=== PATIENT | male | born 1950 | race Caucasian/White ===

== ENCOUNTER 2016-04-10 14:06 | Inpatient (IN) | payer MEDICARE ==
[2016-04-10 14:46] LABS: ABSOLUTE EOSINOPHILS # (AUTO) 0.1 10^3/uL (0.0-0.6); ABSOLUTE LYMPHOCYTES (AUTO) 1.1 10^3/uL (0.5-4.7); ABSOLUTE MONOCYTES (AUTO) 1.1 10^3/uL (0.1-1.4); ABSOLUTE NEUT (AUTO) 7.2 10^3/uL (1.7-8.2); BASOPHILS % (AUTO) 0.4 % (0-2); EOSINOPHILS % (AUTO) 0.7 % (0-6); HEMATOCRIT 46.3 % (37.9-51.0); HEMOGLOBIN 15.3 g/dL (13.5-17.0); HGB HCT DIFFERENCE -0.4; MEAN CORPUSCULAR HEMOGLOBIN 30.8 pg (27.0-33.4); MEAN CORPUSCULAR HGB CONC 33.1 g/dL (32.0-36.0); MEAN CORPUSCULAR VOLUME 93 fl (80-97); MONOCYTES % (AUTO) 11.4 % (3-13); RED BLOOD COUNT 4.99 10^6/uL (4.35-5.55); RED CELL DISTRIBUTION WIDTH 16.5 % (11.5-14.0); SEGMENTED NEUTROPHILS % (AUTO) 75.5 % (42-78); WHITE BLOOD COUNT 9.5 10^3/uL (4.0-10.5)
[2016-04-10 14:47] LABS: VENOUS BLOOD BASE EXCESS 3.4 mmol/L; VENOUS BLOOD HCO3 33.2 mmol/L (20-32); VENOUS BLOOD PH 7.27 (7.30-7.42)
--- NOTE | 2016-04-10 14:53 | EKG REPORT ---
SEVERITY:- ABNORMAL ECG - SINUS RHYTHM RIGHT BUNDLE BRANCH BLOCK : Confirmed by: Stacie Garrett 11-Apr-2016 01:22:35
[2016-04-10 14:57] LABS: ALANINE AMINOTRANSFERASE 38 U/L (21-72); ALBUMIN 3.5 g/dL (3.5-5.0); ALKALINE PHOSPHATASE 49 U/L (38-126); ANION GAP 11 (5-19); ASPARTATE AMINO TRANSFERASE 16 U/L (17-59); BILIRUBIN,TOTAL 0.3 mg/dL (0.2-1.3); BLOOD UREA NITROGEN 43 mg/dL (7-20); CARBON DIOXIDE 35 mmol/L (22-30); CHLORIDE 98 mmol/L (98-107); CREATINE KINASE 45 U/L (55-170); CREATININE RESULT 2.05 mg/dL (0.52-1.25); GLUCOSE 107 mg/dL (75-110); SODIUM 144.3 mmol/L (137-145); TOTAL PROTEIN 6.1 g/dL (6.3-8.2)
[2016-04-10 15:10] LABS: CREATINE KINASE MB 1.28 ng/mL (<4.55)
[2016-04-10 15:12] LABS: TROPONIN I 0.059 ng/mL
--- NOTE | 2016-04-10 16:12 | ER Document Report ---
ED General - General Chief Complaint: Breathing Difficulty Stated Complaint: DIFFICULTY BREATHING Information source: Patient, Emergency Med Personnel TRAVEL OUTSIDE OF THE [place] IN LAST 30 DAYS: No - HPI Patient complains to provider of: shortness of breath, similar to prior COPD and CHF Onset: Other - several days Onset/Duration: Gradual, Waxing and waning Associated symptoms: denies: Fever Exacerbated by: Walking Relieved by: Other - no relief with home nebs - Related Data Allergies/Adverse Reactions: No Known Allergies Allergy (Verified 03/03/16 23:43) Home Medications: Current Home Medications Albuterol Sulfate [Proair HFA] 1 puff IH Q4HP PRN 04/10/16 [History] Fluticasone Propionate [Flonase Nasal [place] 50 Mcg/[place] 16 gm] 1 spray NASL DAILY 04/10/16 [History] Fluticasone/Salmeterol [Advair 500-50 Diskus 14 Dose/Diskus] 1 puff IH Q12 04/10 [History] Furosemide [Lasix 40 mg Tablet] 40 mg PO BID 04/10/16 [History] Losartan Potassium [Cozaar 100 mg Tablet] 100 mg PO DAILY 04/10/16 [History] Past Medical History - General Information source: Patient - Social History Smoking Status: Unknown if Ever Smoked Frequency of alcohol use: None Drug Abuse: None Family History: Reviewed & Not Pertinent - Past Medical History Cardiac Medical History: Reports: Hx Congestive Heart Failure, Hx Hypertension Pulmonary Medical History: Reports: Hx COPD Endocrine Medical History: Reports: Hx Diabetes Mellitus Type 2 Psychiatric Medical History: Reports: Hx Depression - Immunizations Immunizations up to date: Yes Hx Diphtheria, Pertussis, Tetanus Vaccination: Yes Hx Pneumococcal Vaccination: 04/08/14 Review of Systems - Review of Systems Constitutional: denies: Fever Cardiovascular: denies: Syncope Respiratory: Cough, Short of breath, Wheezing Gastrointestinal: denies: Vomiting Genitourinary: denies: Burning Musculoskeletal: Leg swelling Skin: denies: Rash Hematologic/Lymphatic: denies: Swollen glands Neurological/Psychological: denies: Numbness, Tingling Physical Exam - Vital signs Vitals: Pulse Ox 92 04/10/16 14:10 - General General appearance: Alert In distress: Mild - HEENT Head: Normocephalic, Atraumatic Nasal: Normal Mouth/Lips: Normal Mucous membranes: Normal Pharynx: Normal Neck: Normal - Respiratory Respiratory status: Labored Chest status: Nontender Breath sounds: Rales, Wheezing Chest palpation: Normal - Cardiovascular Rhythm: Regular - Abdominal Inspection: Obese Tenderness: Nontender - Back Back: Nontender - Extremities General lower extremity: Edema - Neurological Orientation: AAOx4 - Psychological Associated symptoms: Normal affect - Skin Skin Temperature: Warm Skin Moisture: Dry - chronic dermatitis bilateral lower extremities, onchymycosis Course - Re-evaluation Re-evalutation: 04/10/16 16:[address] Paulson who will admit to [facility] - Vital Signs Vital signs: Temp Pulse Resp BP Pulse Ox 98.6 F 18 113/55 L 96 04/10/16 15:01 04/10/16 19:00 04/10/16 17:01 04/10/16 19:00 - Laboratory Result Diagrams: 04/10/16 14:22 04/10/16 14:22 Laboratory results interpreted by me: 04/10/16 04/10/16 04/10/16 14:22 14:22 14:22 RDW 16.5 H Lymphocytes % 12.0 L VBG pH VBG pCO2 VBG HCO3 Carbon Dioxide 35 H BUN 43 H Creatinine 2.05 H Est GFR ( Amer) 40 L Est GFR (Non-Af Amer) 33 L AST 16 L Creatine Kinase 45 L NT-Pro-B Natriuret Pep 2700 H Total Protein 6.1 L 04/10/16 14:22 RDW Lymphocytes % VBG pH 7.27 L VBG pCO2 74.0 H* VBG HCO3 33.2 H Carbon Dioxide BUN Creatinine Est GFR ( Amer) Est GFR (Non-Af Amer) AST Creatine Kinase NT-Pro-B Natriuret Pep Total Protein - Diagnostic Test Radiology reviewed: Image reviewed, Reports reviewed - EKG Interpretation by Me EKG shows normal: Sinus rhythm Rate: Normal [place]/QRS: RBBB Discharge - Discharge Clinical Impression: Acute respiratory failure with hypoxia and hypercarbia, Acute kidney injury Systolic congestive heart failure Qualifiers: Congestive heart failure chronicity: acute on chronic Qualified Code(s): I50.23 - Acute on chronic systolic (congestive) heart failure COPD (chronic obstructive pulmonary disease) Qualifiers: COPD type: COPD with acute exacerbation Qualified Code(s): J44.1 - Chronic obstructive pulmonary disease with (acute) exacerbation Condition: Fair Disposition: ADMITTED INPATIENT Admitting Provider: Khurram Unit Admitted: [facility]
[2016-04-10] MEDS ORDERED: FUROSEMIDE INJ/PF 40 MG/4 ML SDV IV ONE (16:13)
[2016-04-10 17:05] LABS: APPEARANCE,URINE CLEAR; BILIRUBIN,URINE NEGATIVE (NEGATIVE); GLUCOSE, URINE NEGATIVE (NEGATIVE); KETONES,URINE NEGATIVE (NEGATIVE); LEUKOCYTE ESTERASE,URINE NEGATIVE (NEGATIVE); NITRITE,URINE NEGATIVE (NEGATIVE); PROTEIN,URINE NEGATIVE (NEGATIVE); URINE SPECIFIC GRAVITY 1.011; UROBILINOGEN,URINE NEGATIVE mg/dL (<2.0)
[2016-04-10] MEDS ORDERED: DEXTROSE 40% GEL 15 GM TUBE PO PRN ×2 (20:14)
[2016-04-10] MEDS ORDERED: GLUCAGON,HUMAN RECOMB 1 MG INJ IM PRN (20:14)
[2016-04-10] MEDS ORDERED: INSULIN LISPRO 100 UNIT/ML 3 ML VIAL SUBCUT PRN (20:14)
[2016-04-10] MEDS ORDERED: DEXTROSE 50%-WATER 25 GM/50 ML DISP.SYRIN IV PRN ×2 (20:14)
[2016-04-10 21:20] LABS: PROTHROMBIN TIME 13.1 SEC (11.4-15.4)
[2016-04-10 21:21] LABS: PARTIAL THROMBOPLASTIN TIME 31.7 SEC (23.5-35.8)
[2016-04-10 21:42] LABS: MAGNESIUM 2.1 mg/dL (1.6-2.3); PHOSPHORUS 5.6 mg/dL (2.5-4.5)
[2016-04-10] MEDS: IPRATROPIUM/ALBUTEROL 0.5-2.5 MG/3 ML AMPUL NEB SCH (21:49)
[2016-04-10 21:57] LABS: AMYLASE < 30 U/L (30-110)
[2016-04-10] MEDS ORDERED: LEVOFLOXACIN 750 MG/D5W RTU 750 MG/150 ML RTUPB IV ONE (22:00)
[2016-04-10 22:12] LABS: APPEARANCE,URINE CLEAR; BILIRUBIN,URINE NEGATIVE (NEGATIVE); GLUCOSE, URINE NEGATIVE (NEGATIVE); KETONES,URINE NEGATIVE (NEGATIVE); LEUKOCYTE ESTERASE,URINE NEGATIVE (NEGATIVE); NITRITE,URINE NEGATIVE (NEGATIVE); PROTEIN,URINE NEGATIVE (NEGATIVE); UROBILINOGEN,URINE NEGATIVE mg/dL (<2.0)
[2016-04-10 22:16] LABS: THYROID STIMULATING HORMONE 1.07 uIU/mL (0.47-4.68)
[2016-04-10 22:17] LABS: URINE BARBITURATES SCREEN NEGATIVE; URINE METHADONE SCREEN NEGATIVE; URINE PHENCYCLIDINE SCREEN NEGATIVE
[2016-04-10] MEDS: METHYLPREDNISOLONE INJ 125 MG/2 ML SDV IV SCH (23:16)
[2016-04-10] MEDS: HEPARIN SOD (PORCINE) 5,000 UNIT/ML 1 ML SYRINGE SUBCUT SCH (23:17)
[2016-04-11] MEDS: FLUTICASONE/SALMETEROL DISKUS 500-50 MCG/DOSE IH SCH ×3 (00:03→22:38)
[2016-04-11] MEDS: IPRATROPIUM/ALBUTEROL 0.5-2.5 MG/3 ML AMPUL NEB SCH ×10 (00:11→19:55)
[2016-04-11] MEDS: NORMAL SALINE 1000 ML 1,000 ML IV PRN ×2 (00:54→15:47)
[2016-04-11 00:56] LABS: ARTERIAL BLOOD BASE EXCESS 6.7 mmol/L; ARTERIAL BLOOD O2 SATURATION 86.3 % (94-98)
[2016-04-11 04:26] LABS: ALANINE AMINOTRANSFERASE 35 U/L (21-72); ALBUMIN 3.4 g/dL (3.5-5.0); ALKALINE PHOSPHATASE 48 U/L (38-126); ANION GAP 12 (5-19); ASPARTATE AMINO TRANSFERASE 18 U/L (17-59); BILIRUBIN,TOTAL 0.4 mg/dL (0.2-1.3); BLOOD UREA NITROGEN 46 mg/dL (7-20); CALCIUM 8.8 mg/dL (8.4-10.2); CARBON DIOXIDE 34 mmol/L (22-30); CHLORIDE 99 mmol/L (98-107); CHOLESTEROL 160.33 mg/dL (0-200); Direct HDL 34 mg/dL (>40); GLUCOSE 132 mg/dL (75-110); POTASSIUM 4.7 mmol/L (3.6-5.0); SODIUM 144.8 mmol/L (137-145); TOTAL PROTEIN 5.9 g/dL (6.3-8.2); TRIGLYCERIDES 48 mg/dL (<150)
[2016-04-11 04:37] LABS: DIRECT LDL 131 mg/dL (<100)
[2016-04-11 04:47] LABS: HEMATOCRIT 44.3 % (37.9-51.0); HEMOGLOBIN 14.5 g/dL (13.5-17.0); HGB HCT DIFFERENCE -0.8; MEAN CORPUSCULAR HEMOGLOBIN 30.3 pg (27.0-33.4); MEAN CORPUSCULAR HGB CONC 32.9 g/dL (32.0-36.0); MEAN CORPUSCULAR VOLUME 92 fl (80-97); RED BLOOD COUNT 4.79 10^6/uL (4.35-5.55); RED CELL DISTRIBUTION WIDTH 16.2 % (11.5-14.0); WHITE BLOOD COUNT 12.8 10^3/uL (4.0-10.5)
[2016-04-11 04:50] LABS: BAND NEUTROPHILS % (MANUAL) 1 % (3-5); BASOPHILS % (MANUAL) 0 % (0-2); EOSINOPHILS % (MANUAL) 0 % (0-6); LYMPHOCYTES % (MANUAL) 4 % (13-45); TOTAL CELLS COUNTED 100
[2016-04-11 04:51] LABS: ANISOCYTOSIS 1+; OVALOCYTES SLIGHT; POIKILOCYTOSIS SLIGHT; TOXIC GRANULATION SLIGHT
[2016-04-11] MEDS: HEPARIN SOD (PORCINE) 5,000 UNIT/ML 1 ML SYRINGE SUBCUT SCH ×3 (05:57→22:38)
[2016-04-11] MEDS: METHYLPREDNISOLONE INJ 125 MG/2 ML SDV IV SCH ×3 (05:58→22:37)
[2016-04-11] MEDS: LOSARTAN POTASSIUM 50 MG TABLET PO SCH (09:26)
--- NOTE | 2016-04-11 14:36 | PDOC H&P ---
History of Present Illness Admission Date/PCP: 04/10/16 20:06 PHI STONE, History of Present Illness: NEAL DOMINGO is a 65 year old male with history of chronic obstructive pulmonary disease, tobacco abuse, he came to the emergency room because of progressive shortness of breath and failure to achieve improved symptomatology despite adequate treatment with bronchodilators. In the emergency room he was evaluated, he was treated, a venous blood gas was done, pH was 7.27, PCO2 74, bicarbonate head 33.2. This blood gas suggest acute respiratory acidosis with metabolic alkalosis, the expected bicarbonate for the degree of PCO2 should be 27, but the measured bicarbonate was 33.2. He was also found to have acute kidney injury with serum creatinine of 2.05, he takes furosemide 40 MG 2 times a day, this suggest volume contraction and this would explained the metabolic alkalosis, so the acute kidney injury is most likely prerenal azotemia, he is most likely over diuresed with furosemide. He will be treated with IV infusion on we monitor the chemistries. CT chest was done without contrast and it showed patchy airspace consolidation in the lung bases, right more than left. This could represent atelectasis versus basilar infiltrate. He was recently admitted in this hospital on 03/04/2016 and he was discharged on 03/07/2016 Past Medical History Cardiac Medical History: Reports: Hypertension, Other - Chronic lymphedema of the lower extremities Pulmonary Medical History: Reports: Chronic Obstructive Pulmonary Disease (COPD) Endocrine Medical History: Reports: Diabetes Mellitus Type 2, Obesity Psychiatric Medical History: Reports: Depression Social History Smoking Status: Current Every Day Smoker Cigarettes Packs Per Day: 1 Number of Years Smokin Frequency of Alcohol Use: Occasional Hx Recreational Drug Use: No Drugs: None Hx Prescription Drug Abuse: No - Advance Directive Resuscitation Status: Full Code Family History Family History: Reviewed & Not Pertinent Parental Family History Reviewed: Yes Children Family History Reviewed: Yes Sibling(s) Family History Reviewed.: Yes Medication/Allergy Home Medications: Albuterol Sulfate [Proair HFA] 1 puff IH Q4HP PRN 04/10/16 Fluticasone Propionate [Flonase Nasal [place] 50 Mcg/[place] 16 gm] 1 spray NASL DAILY 04/10/16 Fluticasone/Salmeterol [Advair 500-50 Diskus 14 Dose/Diskus] 1 puff IH Q12 04/10 Furosemide [Lasix 40 mg Tablet] 40 mg PO BID 04/10/16 Losartan Potassium [Cozaar 100 mg Tablet] 100 mg PO DAILY 04/10/16 Metformin HCl [Glucophage] 1 tab PO DAILY 04/11/16 Allergies/Adverse Reactions: No Known Allergies Allergy (Verified 03/03/16 23:43) Review of Systems Constitutional: ABSENT: chills, fever(s), headache(s), weight gain, weight loss Eyes: ABSENT: visual disturbances Ears: ABSENT: hearing changes Cardiovascular: ABSENT: chest pain, dyspnea on exertion, edema, orthropnea, palpitations Respiratory: PRESENT: cough, dyspnea, sputum Gastrointestinal: ABSENT: abdominal pain, constipation, diarrhea, hematemesis, hematochezia, nausea, vomiting Genitourinary: ABSENT: dysuria, hematuria Musculoskeletal: ABSENT: joint swelling Integumentary: ABSENT: rash, wounds Neurological: ABSENT: abnormal gait, abnormal speech, confusion, dizziness, focal weakness, syncope Psychiatric: ABSENT: anxiety, depression, homidical ideation, suicidal ideation Endocrine: ABSENT: cold intolerance, heat intolerance, menstrual abnormalities, polydipsia, polyuria Hematologic/Lymphatic: ABSENT: easy bleeding, easy bruising, lymphadenopathy Physical Exam Vital Signs: Temp Pulse Resp BP Pulse Ox 98.5 F 99 19 85/73 L 91 L 04/11/16 12:10 04/11/16 13:56 04/11/16 12:15 04/11/16 12:10 04/11/16 12:10 Intake & Output 04/10/16 04/11/16 04/12/16 06:59 06:59 06:59 Intake Total 1343 600 Output Total 1000 450 Balance 343 150 Weight 146.9 kg General appearance: PRESENT: severe distress, well-developed, well-nourished Head exam: PRESENT: atraumatic, normocephalic Eye exam: PRESENT: EOMI, PERRLA Mouth exam: PRESENT: dry mucosa Neck exam: PRESENT: full ROM Respiratory exam: PRESENT: wheezes Cardiovascular exam: PRESENT: +S1, +S2 Vascular exam: PRESENT: normal capillary refill GI/Abdominal exam: PRESENT: soft, other - Obese abdomen Rectal exam: PRESENT: deferred Extremities exam: PRESENT: other Neurological exam: PRESENT: alert, awake, oriented to person, oriented to place , oriented to time, oriented to situation, CN II-XII grossly intact Psychiatric exam: PRESENT: appropriate affect, normal mood Skin exam: PRESENT: intact, warm Results Laboratory Results: 04/11/16 03:44 04/11/16 03:44 04/10/16 04/10/16 04/10/16 20:59 20:59 20:59 WBC RBC Hgb Hct MCV MCH MCHC RDW Plt Count Seg Neutrophils % Lymphocytes % Monocytes % Eosinophils % Basophils % Absolute Neutrophils Absolute Lymphocytes Absolute Monocytes Absolute Eosinophils Absolute Basophils Carbonic Acid HCO3/H2CO3 Ratio ABG pH ABG pCO2 ABG pO2 ABG HCO3 ABG O2 Saturation ABG Base Excess FiO2 Sodium Potassium Chloride Carbon Dioxide Anion Gap BUN Creatinine Est GFR ( Amer) Est GFR (Non-Af Amer) Glucose Calcium Phosphorus 5.6 H Magnesium 2.1 Total Bilirubin AST ALT Alkaline Phosphatase Ammonia < 8.7 L Total Protein Albumin Triglycerides Cholesterol LDL Cholesterol Direct VLDL Cholesterol HDL Cholesterol Amylase < 30 L Lipase 79.0 TSH 1.07 Free T4 0.98 Urine Color Urine Appearance Urine pH Ur Specific [place] Urine Protein Urine Glucose (UA) Urine Ketones Urine Blood Urine Nitrite Ur Leukocyte Esterase Urine RBC (Auto) 04/10/16 04/11/16 04/11/16 21:53 00:45 03:44 WBC 12.8 H RBC 4.79 Hgb 14.5 Hct 44.3 MCV 92 MCH 30.3 MCHC 32.9 RDW 16.2 H Plt Count 189 Seg Neutrophils % Not Reportable Lymphocytes % Not Reportable Monocytes % Not Reportable Eosinophils % Not Reportable Basophils % Not Reportable Absolute Neutrophils Not Reportable Absolute Lymphocytes Not Reportable Absolute Monocytes Not Reportable Absolute Eosinophils Not Reportable Absolute Basophils Not Reportable Carbonic Acid 1.75 H HCO3/H2CO3 Ratio 19:1 ABG pH 7.38 ABG pCO2 58.2 H ABG pO2 53.2 L ABG HCO3 33.9 H ABG O2 Saturation 86.3 L ABG Base Excess 6.7 FiO2 6L Sodium Potassium Chloride Carbon Dioxide Anion Gap BUN Creatinine Est GFR ( Amer) Est GFR (Non-Af Amer) Glucose Calcium Phosphorus Magnesium Total Bilirubin AST ALT Alkaline Phosphatase Ammonia Total Protein Albumin Triglycerides Cholesterol LDL Cholesterol Direct VLDL Cholesterol HDL Cholesterol Amylase Lipase TSH Free T4 Urine Color YELLOW Urine Appearance CLEAR Urine pH 5.0 Ur Specific [place] 1.010 Urine Protein NEGATIVE Urine Glucose (UA) NEGATIVE Urine Ketones NEGATIVE Urine Blood SMALL H Urine Nitrite NEGATIVE Ur Leukocyte Esterase NEGATIVE Urine RBC (Auto) 0 04/11/16 03:44 WBC RBC Hgb Hct MCV MCH MCHC RDW Plt Count Seg Neutrophils % Lymphocytes % Monocytes % Eosinophils % Basophils % Absolute Neutrophils Absolute Lymphocytes Absolute Monocytes Absolute Eosinophils Absolute Basophils Carbonic Acid HCO3/H2CO3 Ratio ABG pH ABG pCO2 ABG pO2 ABG HCO3 ABG O2 Saturation ABG Base Excess FiO2 Sodium 144.8 Potassium 4.7 Chloride 99 Carbon Dioxide 34 H Anion Gap 12 BUN 46 H Creatinine 1.60 H Est GFR ( Amer) 53 L Est GFR (Non-Af Amer) 43 L Glucose 132 H Calcium 8.8 Phosphorus Magnesium Total Bilirubin 0.4 AST 18 ALT 35 Alkaline Phosphatase 48 Ammonia Total Protein 5.9 L Albumin 3.4 L Triglycerides 48 Cholesterol 160.33 LDL Cholesterol Direct 131 H VLDL Cholesterol 10.0 HDL Cholesterol 34 L Amylase Lipase TSH Free T4 Urine Color Urine Appearance Urine pH Ur Specific [place] Urine Protein Urine Glucose (UA) Urine Ketones Urine Blood Urine Nitrite Ur Leukocyte Esterase Urine RBC (Auto) 04/10/16 04/10/16 04/11/16 20:59 20:59 03:44 Creatine Kinase 47 L 50 L Troponin I 0.261 04/11/16 04/11/16 04/11/16 03:44 09:59 09:59 Creatine Kinase 74 Troponin I 0.258 0.202 04/10/16 04/10/16 14:22 14:22 VBG pH 7.27 L VBG pCO2 74.0 H* VBG HCO3 33.2 H VBG Base Excess 3.4 Carbon Dioxide 35 H Creatinine 2.05 H Impressions: Chest CT 04/10/16 00:00 IMPRESSION: Patchy bibasilar airspace consolidation is noted above which could represent atelectatic changes or basilar infiltrates. Remaining lung dickinson are clear. Other findings as noted above Chest X-Ray 04/10/16 14:10 IMPRESSION: Limited negative study Assessment & Plan - Diagnosis (1) Acute hypercapnic respiratory failure Is this a current diagnosis for this admission?: YesPlan: He has acute hypercapnic respiratory failure due to combination of acute COPD, morbid obesity and sleep apnea. He is presently requiring positive pressure ventilation with BiPAP machine. He does not have pure Respiratory acidosis, there is associated metabolic alkalosis. The measure bicarbonate is more than the expected bicarbonate for the degree of PCO2. (2) Metabolic alkalosis with respiratory acidosis Is this a current diagnosis for this admission?: YesPlan: The metabolic alkalosis is most likely from volume contraction due to the use of furosemide 40 MG by mouth twice a day on a chronic basis, the furosemide will be held and he will be treated with IV fluids, normal saline. (3) Acute kidney injury Is this a current diagnosis for this admission?: YesPlan: The low GFR is prerenal due to volume contraction from chronic use of furosemide , he be treated with IV normal saline. Will monitor kidney function (4) Acute exacerbation of chronic obstructive pulmonary disease Is this a current diagnosis for this admission?: YesPlan: He be treated with IV Solu-Medrol and also IV antibiotic, CT chest, suggest infiltrate at the lung bases, he will also be treated with bronchodilators, DuoNeb every 2 hours for 24 hours and we will reassess (5) Type 2 diabetes mellitus Qualifiers: Diabetes mellitus complication status: with neurologic complications Diabetes mellitus complication detail: with polyneuropathy Diabetes mellitus assistant terminal manager insulin use: with [facility] use Qualified Code(s): E11.42 - Type 2 diabetes mellitus with diabetic polyneuropathy; Z79.4 - half-way (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 insulin Is this a current diagnosis for this admission?: Yes
[2016-04-11] MEDS ORDERED: IPRATROPIUM/ALBUTEROL 0.5-2.5 MG/3 ML AMPUL NEB PRN (14:41)
--- NOTE | 2016-04-11 16:46 | PDOC PROGRESS REPORT ---
Subjective Progress Note for:: 04/11/16 Subjective:: Patient was seen by the bedside, he was admitted yesterday because of acute hypercapnic respiratory failure with metabolic alkalosis. There is associated hypoxemia. Physical Exam Vital Signs: Temp Pulse Resp BP Pulse Ox 97.9 F 90 20 104/39 L 94 04/11/16 15:35 04/11/16 16:04 04/11/16 16:04 04/11/16 15:35 04/11/16 16:04 Intake & Output 04/10/16 04/11/16 04/12/16 06:59 06:59 06:59 Intake Total 1343 600 Output Total 1000 450 Balance 343 150 Weight 146.9 kg 146.9 kg General appearance: PRESENT: obese Head exam: PRESENT: atraumatic Eye exam: PRESENT: conjunctiva pink, EOMI, PERRLA, scleral icterus Respiratory exam: PRESENT: wheezes Cardiovascular exam: PRESENT: +S1, +S2 GI/Abdominal exam: PRESENT: soft Neurological exam: PRESENT: alert, awake, oriented to person, oriented to place , oriented to time, oriented to situation, CN II-XII grossly intact Skin exam: PRESENT: dry, intact, warm Results Laboratory Results: 04/11/16 03:44 04/11/16 03:44 04/10/16 04/10/16 04/10/16 20:59 20:59 20:59 WBC RBC Hgb Hct MCV MCH MCHC RDW Plt Count Seg Neutrophils % Lymphocytes % Monocytes % Eosinophils % Basophils % Absolute Neutrophils Absolute Lymphocytes Absolute Monocytes Absolute Eosinophils Absolute Basophils Carbonic Acid HCO3/H2CO3 Ratio ABG pH ABG pCO2 ABG pO2 ABG HCO3 ABG O2 Saturation ABG Base Excess FiO2 Sodium Potassium Chloride Carbon Dioxide Anion Gap BUN Creatinine Est GFR ( Amer) Est GFR (Non-Af Amer) Glucose Calcium Phosphorus 5.6 H Magnesium 2.1 Total Bilirubin AST ALT Alkaline Phosphatase Ammonia < 8.7 L Total Protein Albumin Triglycerides Cholesterol LDL Cholesterol Direct VLDL Cholesterol HDL Cholesterol Amylase < 30 L Lipase 79.0 TSH 1.07 Free T4 0.98 Urine Color Urine Appearance Urine pH Ur Specific [place] Urine Protein Urine Glucose (UA) Urine Ketones Urine Blood Urine Nitrite Ur Leukocyte Esterase Urine RBC (Auto) 04/10/16 04/11/16 04/11/16 21:53 00:45 03:44 WBC 12.8 H RBC 4.79 Hgb 14.5 Hct 44.3 MCV 92 MCH 30.3 MCHC 32.9 RDW 16.2 H Plt Count 189 Seg Neutrophils % Not Reportable Lymphocytes % Not Reportable Monocytes % Not Reportable Eosinophils % Not Reportable Basophils % Not Reportable Absolute Neutrophils Not Reportable Absolute Lymphocytes Not Reportable Absolute Monocytes Not Reportable Absolute Eosinophils Not Reportable Absolute Basophils Not Reportable Carbonic Acid 1.75 H HCO3/H2CO3 Ratio 19:1 ABG pH 7.38 ABG pCO2 58.2 H ABG pO2 53.2 L ABG HCO3 33.9 H ABG O2 Saturation 86.3 L ABG Base Excess 6.7 FiO2 6L Sodium Potassium Chloride Carbon Dioxide Anion Gap BUN Creatinine Est GFR ( Amer) Est GFR (Non-Af Amer) Glucose Calcium Phosphorus Magnesium Total Bilirubin AST ALT Alkaline Phosphatase Ammonia Total Protein Albumin Triglycerides Cholesterol LDL Cholesterol Direct VLDL Cholesterol HDL Cholesterol Amylase Lipase TSH Free T4 Urine Color YELLOW Urine Appearance CLEAR Urine pH 5.0 Ur Specific [place] 1.010 Urine Protein NEGATIVE Urine Glucose (UA) NEGATIVE Urine Ketones NEGATIVE Urine Blood SMALL H Urine Nitrite NEGATIVE Ur Leukocyte Esterase NEGATIVE Urine RBC (Auto) 0 04/11/16 03:44 WBC RBC Hgb Hct MCV MCH MCHC RDW Plt Count Seg Neutrophils % Lymphocytes % Monocytes % Eosinophils % Basophils % Absolute Neutrophils Absolute Lymphocytes Absolute Monocytes Absolute Eosinophils Absolute Basophils Carbonic Acid HCO3/H2CO3 Ratio ABG pH ABG pCO2 ABG pO2 ABG HCO3 ABG O2 Saturation ABG Base Excess FiO2 Sodium 144.8 Potassium 4.7 Chloride 99 Carbon Dioxide 34 H Anion Gap 12 BUN 46 H Creatinine 1.60 H Est GFR ( Amer) 53 L Est GFR (Non-Af Amer) 43 L Glucose 132 H Calcium 8.8 Phosphorus Magnesium Total Bilirubin 0.4 AST 18 ALT 35 Alkaline Phosphatase 48 Ammonia Total Protein 5.9 L Albumin 3.4 L Triglycerides 48 Cholesterol 160.33 LDL Cholesterol Direct 131 H VLDL Cholesterol 10.0 HDL Cholesterol 34 L Amylase Lipase TSH Free T4 Urine Color Urine Appearance Urine pH Ur Specific [place] Urine Protein Urine Glucose (UA) Urine Ketones Urine Blood Urine Nitrite Ur Leukocyte Esterase Urine RBC (Auto) 04/10/16 04/10/16 04/11/16 20:59 20:59 03:44 Creatine Kinase 47 L 50 L Troponin I 0.261 04/11/16 04/11/16 04/11/16 03:44 09:59 09:59 Creatine Kinase 74 Troponin I 0.258 0.202 Impressions: Chest CT 04/10/16 00:00 IMPRESSION: Patchy bibasilar airspace consolidation is noted above which could represent atelectatic changes or basilar infiltrates. Remaining lung dickinson are clear. Other findings as noted above Chest X-Ray 04/10/16 14:10 IMPRESSION: Limited negative study Assessment & Plan - Diagnosis (1) Acute hypercapnic respiratory failure Is this a current diagnosis for this admission?: YesPlan: Continue standby BiPAP if needed (2) Metabolic alkalosis with respiratory acidosis Is this a current diagnosis for this admission?: Yes (3) Acute kidney injury Is this a current diagnosis for this admission?: YesPlan: The acute kidney injury is improving with hydration, suggesting prerenal azotemia (4) Acute exacerbation of chronic obstructive pulmonary disease Is this a current diagnosis for this admission?: YesPlan: Continue IV Solu-Medrol and antibiotic and bronchodilators (5) Type 2 diabetes mellitus Qualifiers: Diabetes mellitus complication status: with neurologic complications Diabetes mellitus complication detail: with polyneuropathy Diabetes mellitus termination clerk insulin use: with senior living use Qualified Code(s): E11.42 - Type 2 diabetes mellitus with diabetic polyneuropathy; Z79.4 - 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
[2016-04-11] MEDS: LEVOFLOXACIN 750 MG/D5W RTU 750 MG/150 ML RTUPB IV SCH (22:38)
[2016-04-12] MEDS: METHYLPREDNISOLONE INJ 125 MG/2 ML SDV IV SCH ×2 (05:47→14:10)
[2016-04-12] MEDS: HEPARIN SOD (PORCINE) 5,000 UNIT/ML 1 ML SYRINGE SUBCUT SCH ×3 (05:47→21:46)
[2016-04-12 06:18] LABS: HEMATOCRIT 44.1 % (37.9-51.0); HEMOGLOBIN 14.5 g/dL (13.5-17.0); HGB HCT DIFFERENCE -0.6; MEAN CORPUSCULAR HEMOGLOBIN 30.6 pg (27.0-33.4); MEAN CORPUSCULAR HGB CONC 32.8 g/dL (32.0-36.0); MEAN CORPUSCULAR VOLUME 93 fl (80-97); RED BLOOD COUNT 4.73 10^6/uL (4.35-5.55); RED CELL DISTRIBUTION WIDTH 16.3 % (11.5-14.0); WHITE BLOOD COUNT 14.5 10^3/uL (4.0-10.5)
[2016-04-12 06:21] LABS: ALANINE AMINOTRANSFERASE 34 U/L (21-72); ALBUMIN 3.4 g/dL (3.5-5.0); ALKALINE PHOSPHATASE 43 U/L (38-126); ANION GAP 10 (5-19); ASPARTATE AMINO TRANSFERASE 17 U/L (17-59); BILIRUBIN,TOTAL 0.3 mg/dL (0.2-1.3); BLOOD UREA NITROGEN 48 mg/dL (7-20); CALCIUM 8.7 mg/dL (8.4-10.2); CARBON DIOXIDE 33 mmol/L (22-30); CHLORIDE 99 mmol/L (98-107); GLUCOSE 131 mg/dL (75-110); POTASSIUM 4.9 mmol/L (3.6-5.0); TOTAL PROTEIN 5.9 g/dL (6.3-8.2)
[2016-04-12 06:49] LABS: BAND NEUTROPHILS % (MANUAL) 2 % (3-5); BASOPHILS % (MANUAL) 0 % (0-2); EOSINOPHILS % (MANUAL) 0 % (0-6); LYMPHOCYTES % (MANUAL) 2 % (13-45); TOTAL CELLS COUNTED 100
[2016-04-12 06:52] LABS: ANISOCYTOSIS SLIGHT; BURR CELLS SLIGHT; OVALOCYTES SLIGHT; POIKILOCYTOSIS SLIGHT; POLYCHROMASIA SLIGHT; TOXIC GRANULATION SLIGHT
[2016-04-12] MEDS: IPRATROPIUM/ALBUTEROL 0.5-2.5 MG/3 ML AMPUL NEB SCH ×4 (08:39→20:19)
[2016-04-12] MEDS: NORMAL SALINE 1000 ML 1,000 ML IV PRN (08:55)
[2016-04-12] MEDS: LOSARTAN POTASSIUM 50 MG TABLET PO SCH (09:29)
[2016-04-12] MEDS: FLUTICASONE/SALMETEROL DISKUS 500-50 MCG/DOSE IH SCH ×2 (09:29→21:45)
--- NOTE | 2016-04-12 12:28 | Physician Advisory Note ---
Physician Advisor ProgressNote .: [facility], I have reviewed the medical record for this patient. Physician Advisor Statement: Excellent documentation of Acute resp acidosis/acute metabl alkalosis, and capturing pt chronic dx of obesity in H&P's PMH. Possible documentation opportunities if attending agrees: 1. "possible acute BLL pneumonia, could be gram-negative given underlying COPD & recent hospitalization" - or "Acute Bronchitis"? - there is something besides plain non-infectious COPD exacerbation suspected, b/c tx'ing w/abx... 2. "Acute hypercapneic & hypoxemic resp failure with labored breathing initially, & O2 sats into 80s on 3L in ED" - per ED nursing notes 3. "Chronic Hypoxemic Resp Failure needing 3L O2 at night" - pt using 3L O2 at night at baseline per ED records. 4. "Chronic diastolic CHF" 5. "Acute Kidney Injury, likely due to " [ATN, Acute cortical necrosis, medullary necrosis, ...] -these are what the coders need specified to give you credit for this dx. As always, if concerned about any unstable VS or abnormal labs, please comment on them & note what doing about them, & please document each day the potential clinical problems you are concerned could occur if pt not kept in hospital for tx at this time. Thanks for your help with documentation accuracy/specificity improvement! Soraya Bradford MD
--- NOTE | 2016-04-12 21:09 | PDOC PROGRESS REPORT ---
Subjective Progress Note for:: 04/12/16 Subjective:: He was seen by the bedside, is improving, Physical Exam Vital Signs: Temp Pulse Resp BP Pulse Ox 97.5 F 89 28 H 107/41 L 92 04/12/16 19:50 04/12/16 19:50 04/12/16 19:50 04/12/16 19:50 04/12/16 19:50 Intake & Output 04/11/16 04/12/16 04/13/16 06:59 06:59 06:59 Intake Total 1343 3153 2714 Output Total 1000 1400 925 Balance 343 1753 1789 Weight 146.9 kg 142.9 kg General appearance: PRESENT: well-developed, well-nourished Eye exam: PRESENT: PERRLA. ABSENT: scleral icterus Mouth exam: PRESENT: moist, tongue midline Neck exam: PRESENT: full ROM. ABSENT: thyromegaly Respiratory exam: PRESENT: clear to auscultation coty Cardiovascular exam: PRESENT: RRR, +S1, +S2 GI/Abdominal exam: PRESENT: normal bowel sounds, soft Rectal exam: PRESENT: deferred Neurological exam: PRESENT: alert, awake, oriented to person, oriented to place , oriented to time, oriented to situation, CN II-XII grossly intact Psychiatric exam: PRESENT: appropriate affect, normal mood Skin exam: PRESENT: dry, intact, warm. ABSENT: cyanosis, rash Results Laboratory Results: 04/12/16 05:07 04/12/16 05:07 04/12/16 04/12/16 05:07 05:07 WBC 14.5 H RBC 4.73 Hgb 14.5 Hct 44.1 MCV 93 MCH 30.6 MCHC 32.8 RDW 16.3 H Plt Count 177 Seg Neutrophils % Not Reportable Lymphocytes % Not Reportable Monocytes % Not Reportable Eosinophils % Not Reportable Basophils % Not Reportable Absolute Neutrophils Not Reportable Absolute Lymphocytes Not Reportable Absolute Monocytes Not Reportable Absolute Eosinophils Not Reportable Absolute Basophils Not Reportable Sodium 142.0 Potassium 4.9 Chloride 99 Carbon Dioxide 33 H Anion Gap 10 BUN 48 H Creatinine 1.40 H Est GFR ( Amer) > 60 Est GFR (Non-Af Amer) 51 L Glucose 131 H Calcium 8.7 Total Bilirubin 0.3 AST 17 ALT 34 Alkaline Phosphatase 43 Total Protein 5.9 L Albumin 3.4 L 04/11/16 07:25 Nasophary (Mrs[facility] Only) MRSA Surveillance Culture - Final MRSA RECOVERED 04/10/16 21:53 Martinez Catheter Urine Culture - Final NO GROWTH 2 DAYS 04/10/16 04/10/16 04/11/16 20:59 20:59 03:44 Creatine Kinase 47 L 50 L Troponin I 0.261 04/11/16 04/11/16 04/11/16 03:44 09:59 09:59 Creatine Kinase 74 Troponin I 0.258 0.202 Impressions: Chest CT 04/10/16 00:00 IMPRESSION: Patchy bibasilar airspace consolidation is noted above which could represent atelectatic changes or basilar infiltrates. Remaining lung dickinson are clear. Other findings as noted above Chest X-Ray 04/10/16 14:10 IMPRESSION: Limited negative study Assessment & Plan - Diagnosis (1) Acute hypercapnic respiratory failure Is this a current diagnosis for this admission?: Yes (2) Metabolic alkalosis with respiratory acidosis Is this a current diagnosis for this admission?: Yes (3) Acute kidney injury Is this a current diagnosis for this admission?: Yes (4) Acute exacerbation of chronic obstructive pulmonary disease Is this a current diagnosis for this admission?: YesPlan: We'll discontinue IV Solu-Medrol and start by mouth prednisone (5) Type 2 diabetes mellitus Qualifiers: Diabetes mellitus complication status: with neurologic complications Diabetes mellitus complication detail: with polyneuropathy Diabetes mellitus detention insulin use: with detention use Qualified Code(s): E11.42 - Type 2 diabetes mellitus with diabetic polyneuropathy; Z79.4 - long-term (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
[2016-04-12] MEDS: LEVOFLOXACIN 750 MG/D5W RTU 750 MG/150 ML RTUPB IV SCH (21:45)
[2016-04-12] MEDS ORDERED: PREDNISONE 20 MG TABLET PO ONE (22:00)
[2016-04-13] MEDS: NORMAL SALINE 1000 ML 1,000 ML IV PRN (00:45)
[2016-04-13 04:18] LABS: HEMATOCRIT 43.8 % (37.9-51.0); HEMOGLOBIN 14.2 g/dL (13.5-17.0); HGB HCT DIFFERENCE -1.2; MEAN CORPUSCULAR HEMOGLOBIN 30.6 pg (27.0-33.4); MEAN CORPUSCULAR HGB CONC 32.4 g/dL (32.0-36.0); MEAN CORPUSCULAR VOLUME 95 fl (80-97); RED BLOOD COUNT 4.63 10^6/uL (4.35-5.55); RED CELL DISTRIBUTION WIDTH 16.3 % (11.5-14.0); WHITE BLOOD COUNT 13.2 10^3/uL (4.0-10.5)
[2016-04-13 04:42] LABS: ALANINE AMINOTRANSFERASE 43 U/L (21-72); ALBUMIN 3.1 g/dL (3.5-5.0); ALKALINE PHOSPHATASE 36 U/L (38-126); ANION GAP 7 (5-19); ASPARTATE AMINO TRANSFERASE 19 U/L (17-59); BILIRUBIN,TOTAL 0.3 mg/dL (0.2-1.3); BLOOD UREA NITROGEN 51 mg/dL (7-20); CALCIUM 8.6 mg/dL (8.4-10.2); CARBON DIOXIDE 33 mmol/L (22-30); CHLORIDE 102 mmol/L (98-107); CREATININE RESULT 1.29 mg/dL (0.52-1.25); GLUCOSE 127 mg/dL (75-110); POTASSIUM 5.2 mmol/L (3.6-5.0); SODIUM 142.2 mmol/L (137-145); TOTAL PROTEIN 5.5 g/dL (6.3-8.2)
[2016-04-13 04:55] LABS: BASOPHILS % (MANUAL) 0 % (0-2); EOSINOPHILS % (MANUAL) 0 % (0-6); LYMPHOCYTES % (MANUAL) 13 % (13-45); TOTAL CELLS COUNTED 100
[2016-04-13 04:56] LABS: ANISOCYTOSIS 1+; POLYCHROMASIA SLIGHT; TOXIC GRANULATION SLIGHT
[2016-04-13] MEDS: HEPARIN SOD (PORCINE) 5,000 UNIT/ML 1 ML SYRINGE SUBCUT SCH ×4 (05:36→22:34)
[2016-04-13] MEDS: IPRATROPIUM/ALBUTEROL 0.5-2.5 MG/3 ML AMPUL NEB SCH ×4 (08:06→19:50)
[2016-04-13] MEDS: LOSARTAN POTASSIUM 50 MG TABLET PO SCH (10:22)
[2016-04-13] MEDS: FLUTICASONE/SALMETEROL DISKUS 500-50 MCG/DOSE IH SCH ×2 (10:22→22:35)
[2016-04-13] MEDS: PREDNISONE 20 MG TABLET PO SCH (10:23)
--- NOTE | 2016-04-13 19:33 | PDOC PROGRESS REPORT ---
Subjective Progress Note for:: 04/13/16 Subjective:: Patient was seen by the bedside, he is improving. The intravenous Solu-Medrol was discontinued yesterday. He is presently on by mouth prednisone, we will stop IV fluids and hopefully discharge home tomorrow Physical Exam Vital Signs: Temp Pulse Resp BP Pulse Ox 97.2 F 84 20 120/54 L 90 L 04/13/16 15:01 04/13/16 16:33 04/13/16 16:33 04/13/16 15:01 04/13/16 16:33 Intake & Output 04/12/16 04/13/16 04/14/16 06:59 06:59 06:59 Intake Total 3153 4412 2056 Output Total 1400 2050 600 Balance 1753 2362 1456 Weight 142.9 kg 146 kg General appearance: PRESENT: no acute distress Eye exam: PRESENT: PERRLA Respiratory exam: PRESENT: clear to auscultation coty Cardiovascular exam: PRESENT: +S1, +S2 GI/Abdominal exam: PRESENT: soft Neurological exam: PRESENT: alert Results Laboratory Results: 04/13/16 03:43 04/13/16 03:43 04/13/16 04/13/16 03:43 03:43 WBC 13.2 H RBC 4.63 Hgb 14.2 Hct 43.8 MCV 95 MCH 30.6 MCHC 32.4 RDW 16.3 H Plt Count 170 Seg Neutrophils % Not Reportable Lymphocytes % Not Reportable Monocytes % Not Reportable Eosinophils % Not Reportable Basophils % Not Reportable Absolute Neutrophils Not Reportable Absolute Lymphocytes Not Reportable Absolute Monocytes Not Reportable Absolute Eosinophils Not Reportable Absolute Basophils Not Reportable Sodium 142.2 Potassium 5.2 H Chloride 102 Carbon Dioxide 33 H Anion Gap 7 BUN 51 H Creatinine 1.29 H Est GFR ( Amer) > 60 Est GFR (Non-Af Amer) 56 L Glucose 127 H Calcium 8.6 Total Bilirubin 0.3 AST 19 ALT 43 Alkaline Phosphatase 36 L Total Protein 5.5 L Albumin 3.1 L 04/10/16 04/10/16 04/11/16 20:59 20:59 03:44 Creatine Kinase 47 L 50 L Troponin I 0.261 04/11/16 04/11/16 04/11/16 03:44 09:59 09:59 Creatine Kinase 74 Troponin I 0.258 0.202 Impressions: Chest CT 04/10/16 00:00 IMPRESSION: Patchy bibasilar airspace consolidation is noted above which could represent atelectatic changes or basilar infiltrates. Remaining lung dickinson are clear. Other findings as noted above Chest X-Ray 04/10/16 14:10 IMPRESSION: Limited negative study Assessment & Plan - Diagnosis (1) Acute hypercapnic respiratory failure Is this a current diagnosis for this admission?: Yes (2) Metabolic alkalosis with respiratory acidosis Is this a current diagnosis for this admission?: Yes (3) Acute kidney injury Is this a current diagnosis for this admission?: Yes (4) Acute exacerbation of chronic obstructive pulmonary disease Is this a current diagnosis for this admission?: Yes (5) Type 2 diabetes mellitus Qualifiers: Diabetes mellitus complication status: with neurologic complications Diabetes mellitus complication detail: with polyneuropathy 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
[2016-04-13] MEDS ORDERED: LEVOFLOXACIN 750 MG TABLET PO SCH (22:00)
[2016-04-14] MEDS: HEPARIN SOD (PORCINE) 5,000 UNIT/ML 1 ML SYRINGE SUBCUT SCH ×2 (06:42→15:04)
[2016-04-14] MEDS: IPRATROPIUM/ALBUTEROL 0.5-2.5 MG/3 ML AMPUL NEB SCH ×2 (07:39→13:13)
[2016-04-14] MEDS: LOSARTAN POTASSIUM 50 MG TABLET PO SCH (09:57)
[2016-04-14] MEDS: PREDNISONE 20 MG TABLET PO SCH (09:58)
[2016-04-14] MEDS: FLUTICASONE/SALMETEROL DISKUS 500-50 MCG/DOSE IH SCH (09:58)
[2016-04-14 14:55] VITALS: BP 188/62
--- NOTE | 2016-04-14 14:58 | PDOC DISCHARGE SUMMARY ---
General - Admit/Disc Date/PCP Admission Date/Primary Care Provider: 04/10/16 20:06 PHI STONE, Discharge Date: 04/14/16 - Discharge Diagnosis (1) Acute hypercapnic respiratory failure Is this a current diagnosis for this admission?: Yes (2) Metabolic alkalosis with respiratory acidosis Is this a current diagnosis for this admission?: Yes (3) Acute kidney injury Is this a current diagnosis for this admission?: Yes (4) Acute exacerbation of chronic obstructive pulmonary disease Is this a current diagnosis for this admission?: Yes (5) Type 2 diabetes mellitus Is this a current diagnosis for this admission?: Yes (6) Acute hypoxemic respiratory failure Is this a current diagnosis for this admission?: Yes - Additional Information Resuscitation Status: Full Code Home Medications: Albuterol Sulfate [Proair HFA] 1 puff IH Q4HP PRN 04/10/16 Fluticasone Propionate [Flonase Nasal [place] 50 Mcg/[place] 16 gm] 1 spray NASL DAILY 04/10/16 Fluticasone/Salmeterol [Advair 500-50 Diskus 14 Dose/Diskus] 1 puff IH Q12 04/10 Losartan Potassium [Cozaar 100 mg Tablet] 100 mg PO DAILY 04/10/16 Metformin HCl [Glucophage] 1 tab PO DAILY 04/11/16 Aspirin 81 mg PO DAILY #30 tab.chew 04/14/16 Prednisone [Deltasone 20 mg Tablet] 60 mg PO DAILY #0 tablet 04/14/16 Tiotropium [place] [Spiriva Respimat] 4 gm IH DAILY #1 mist.inhal 04/14/16 History of Present Illness History of Present Illness: NEAL DOMINGO is a 65 year old male with history of chronic obstructive pulmonary disease, tobacco abuse, he came to the emergency room because of progressive shortness of breath and failure to achieve improved symptomatology despite adequate treatment with bronchodilators. In the emergency room he was evaluated, he was treated, a venous blood gas was done, pH was 7.27, PCO2 74, bicarbonate head 33.2. This blood gas suggest acute respiratory acidosis with metabolic alkalosis, the expected bicarbonate for the degree of PCO2 should be 27, but the measured bicarbonate was 33.2. He was also found to have acute kidney injury with serum creatinine of 2.05, he takes furosemide 40 MG 2 times a day, this suggest volume contraction and this would explained the metabolic alkalosis, so the acute kidney injury is most likely prerenal azotemia, he is most likely over diuresed with furosemide. He will be treated with IV infusion on we monitor the chemistries. CT chest was done without contrast and it showed patchy airspace consolidation in the lung bases, right more than left. This could represent atelectasis versus basilar infiltrate. He was recently admitted in this hospital on 03/04/2016 and he was discharged on 03/07/2016 Hospital Course Hospital Course: Patient was admitted when he presented with acute hypercapnic respiratory failure due to acute COPD exacerbation. He was treated with IV antibiotic and also Solu-Medrol and bronchodilators . He improved compared to admission, he also had acute kidney injury due to prerenal dehydration. He was treated with IV fluids and there is near normalization of his kidney function. Physical Exam Vital Signs: Temp Pulse Resp BP Pulse Ox 99.2 F 86 18 133/53 H 89 L 04/14/16 11:25 04/14/16 14:00 04/14/16 12:00 04/14/16 11:25 04/14/16 12:00 Intake & Output 04/13/16 04/14/16 04/15/16 06:59 06:59 06:59 Intake Total 4412 2766 592 Output Total 2050 1525 1000 Balance 2362 1241 -408 Weight 146 kg 143.3 kg General appearance: PRESENT: no acute distress, well-developed, well-nourished Head exam: PRESENT: atraumatic, normocephalic Eye exam: PRESENT: EOMI, PERRLA Mouth exam: PRESENT: moist, tongue midline Neck exam: PRESENT: full ROM Respiratory exam: PRESENT: clear to auscultation coty Cardiovascular exam: PRESENT: RRR, +S1, +S2. ABSENT: systolic murmur Pulses: PRESENT: normal dorsalis pedis pul GI/Abdominal exam: PRESENT: normal bowel sounds, soft Rectal exam: PRESENT: deferred Neurological exam: PRESENT: alert, awake, oriented to person, oriented to place , oriented to time, oriented to situation, CN II-XII grossly intact Psychiatric exam: PRESENT: appropriate affect, normal mood. ABSENT: homicidal ideation, suicidal ideation Skin exam: PRESENT: dry, intact, warm. ABSENT: cyanosis, rash Results Laboratory Results: 04/13/16 03:43 04/13/16 03:43 04/10/16 04/10/16 04/11/16 20:59 20:59 03:44 Creatine Kinase 47 L 50 L Troponin I 0.261 04/11/16 04/11/16 04/11/16 03:44 09:59 09:59 Creatine Kinase 74 Troponin I 0.258 0.202 Impressions: Chest CT 04/10/16 00:00 IMPRESSION: Patchy bibasilar airspace consolidation is noted above which could represent atelectatic changes or basilar infiltrates. Remaining lung dickinson are clear. Other findings as noted above Chest X-Ray 04/10/16 14:10 IMPRESSION: Limited negative study
== END 2016-04-14 16:52 | disposition home or self-care (01) | DRG 190 ==
LOC: ER 14:06 → UNDOADMIN 18:58 → EH 18:58 → 3N 22:30
PROVIDERS: ADMIT Internal Medicine; ATTEND Internal Medicine
PROC: 5A09557 Assistance with Respiratory Ventilation, Greater than 96 Consecutive Hours, Continuous Positive Airway Pressure (ICD-10-PCS; principal; 2016-04-10)
DX: J44.1 Chronic obstructive pulmonary disease with (acute) exacerbation (principal); J96.02 Acute respiratory failure with hypercapnia; J96.01 Acute respiratory failure with hypoxia; Z68.43 Body mass index [BMI] 50.0-59.9, adult; N17.9 Acute kidney failure, unspecified; E87.4 Mixed disorder of acid-base balance; I50.22 Chronic systolic (congestive) heart failure; E66.9 Obesity, unspecified; E86.0 Dehydration; G47.30 Sleep apnea, unspecified; F17.210 Nicotine dependence, cigarettes, uncomplicated; F32.9 Major depressive disorder, single episode, unspecified; E11.42 Type 2 diabetes mellitus with diabetic polyneuropathy; L30.8 Other specified dermatitis; L85.3 Xerosis cutis; D71 Functional disorders of polymorphonuclear neutrophils; B35.1 Tinea unguium; I11.0 Hypertensive heart disease with heart failure; Z79.899 Other long term (current) drug therapy; Z79.84 Long term (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 oral hypoglycemic drugs
CPT/HCPCS: 36415; 51702; 71010; 71250; 80048; 80053; 80061; 80076; 80307; 81001; 82140; 82150; 82550; 82553; 82803; 82962; 83036; 83690; 83735; 83880; 84100; 84439; 84443; 84484; 85025; 85610; 85730; 87040; 87086; 93005; 93010; 94640; 94660; 96374; 99285; J1644; J1940; J1956; J2930; J3490; J7030; J7512; J7620

== ENCOUNTER 2016-04-15 19:44 | Inpatient (IN) | payer MEDICARE ==
[2016-04-15 20:56] LABS: HEMATOCRIT 46.9 % (37.9-51.0); HEMOGLOBIN 15.2 g/dL (13.5-17.0); HGB HCT DIFFERENCE -1.3; MEAN CORPUSCULAR HEMOGLOBIN 30.5 pg (27.0-33.4); MEAN CORPUSCULAR HGB CONC 32.3 g/dL (32.0-36.0); MEAN CORPUSCULAR VOLUME 94 fl (80-97); RED BLOOD COUNT 4.98 10^6/uL (4.35-5.55); WHITE BLOOD COUNT 10.5 10^3/uL (4.0-10.5)
[2016-04-15 20:59] LABS: BASOPHILS % (MANUAL) 0 % (0-2); EOSINOPHILS % (MANUAL) 2 % (0-6); LYMPHOCYTES % (MANUAL) 6 % (13-45); TOTAL CELLS COUNTED 100
[2016-04-15 21:00] LABS: ANISOCYTOSIS 1+; TOXIC GRANULATION SLIGHT; TOXIC VACUOLATION PRESENT
[2016-04-15 21:26] LABS: ALANINE AMINOTRANSFERASE 123 U/L (21-72); ALBUMIN 3.6 g/dL (3.5-5.0); ALKALINE PHOSPHATASE 47 U/L (38-126); ANION GAP 8 (5-19); ASPARTATE AMINO TRANSFERASE 52 U/L (17-59); BILIRUBIN,TOTAL 1.3 mg/dL (0.2-1.3); BLOOD UREA NITROGEN 35 mg/dL (7-20); CALCIUM 9.1 mg/dL (8.4-10.2); CARBON DIOXIDE 39 mmol/L (22-30); CHLORIDE 99 mmol/L (98-107); CREATINE KINASE 87 U/L (55-170); CREATININE RESULT 1.25 mg/dL (0.52-1.25); GLUCOSE 102 mg/dL (75-110); POTASSIUM 4.7 mmol/L (3.6-5.0); SODIUM 145.8 mmol/L (137-145); TOTAL PROTEIN 6.1 g/dL (6.3-8.2)
--- NOTE | 2016-04-15 21:34 | EKG REPORT ---
SEVERITY:- ABNORMAL ECG - SINUS RHYTHM RIGHT BUNDLE BRANCH BLOCK PROBABLE INFERIOR INFARCT, AGE INDETERMINATE : Confirmed by: Stacie Garrett 15-Apr-2016 21:34:16
[2016-04-15 21:37] LABS: CREATINE KINASE MB 2.75 ng/mL (<4.55)
[2016-04-15 21:45] LABS: TROPONIN I 0.058 ng/mL
--- NOTE | 2016-04-15 21:45 | ER Document Report ---
ED General - General Chief Complaint: Respiratory Distress Stated Complaint: RESPIRATORY ISSUES Mode of Arrival: Medic Information source: Patient, Emergency Med Personnel, [facility] Records Cannot obtain history due to: Altered mental status Notes: 65-year-old male history CHF COPD who was just discharged from the hospital yesterday presents with complaints of shortness of breath. Patient was on 5 L nasal cannula satting at 80% when found by EMS. Patient admits that he was smoking at home when he began to have the shortness of breath. Denies any fevers or chills nausea vomiting or diarrhea. Patient is confused altered and believes it is [address] TRAVEL OUTSIDE OF THE [place] IN LAST 30 DAYS: No - HPI Onset: Just prior to arrival Onset/Duration: Sudden Quality of pain: No pain Severity: Moderate Pain Level: Denies Associated symptoms: Shortness of breath, Other Exacerbated by: Denies Relieved by: Denies Similar symptoms previously: Yes Recently seen / treated by doctor: Yes - Related Data Allergies/Adverse Reactions: No Known Allergies Allergy (Verified 04/15/16 22:19) Past Medical History - Social History Smoking Status: Current Every Day Smoker Cigarette use (# per day): Yes Chew tobacco use (# tins/day): No Smoking Education Provided: Yes - Patient counselled regarding cessation for 4 minutes Family History: Reviewed & Not Pertinent - Past Medical History Cardiac Medical History: Reports: Hx Congestive Heart Failure, Hx Hypertension Pulmonary Medical History: Reports: Hx COPD Endocrine Medical History: Reports: Hx Diabetes Mellitus Type 2 Psychiatric Medical History: Reports: Hx Depression - Immunizations Immunizations up to date: Yes Hx Diphtheria, Pertussis, Tetanus Vaccination: Yes Hx Pneumococcal Vaccination: 04/08/14 Review of Systems - Review of Systems Notes: REVIEW OF SYSTEMS: CONSTITUTIONAL : Denies fever, chills, or sweats. Denies recent illness. EENT: Denies eye, ear, throat, or mouth pain or symptoms. Denies nasal or sinus congestion or discharge. Denies throat, tongue, or mouth swelling or difficulty swallowing. CARDIOVASCULAR: Denies chest pain. Denies palpitations or racing or irregular heart beat. Denies ankle edema. RESPIRATORY: Admits to shortness of breath with a breathing GASTROINTESTINAL: Denies abdominal pain or distention. Denies nausea, vomiting , or diarrhea. Denies blood in vomitus, stools, or per rectum. Denies black, tarry stools. Denies constipation. GENITOURINARY: Denies difficulty urinating, painful urination, burning, frequency, blood in urine, or discharge. MUSCULOSKELETAL: Denies back or neck pain or stiffness. Denies joint pain or swelling. SKIN: Denies rash, lesions or sores. HEMATOLOGIC : Denies easy bruising or bleeding. LYMPHATIC: Denies swollen, enlarged glands. NEUROLOGICAL: Denies confusion or altered mental status. Denies passing out or loss of consciousness. Denies dizziness or lightheadedness. Denies headache. Denies weakness or paralysis or loss of use of either side. Denies problems with gait or speech. Denies sensory loss, numbness, or tingling. Denies seizures. PSYCHIATRIC: Denies anxiety or stress. Denies depression, suicidal ideation, or homicidal ideation. ALL OTHER SYSTEMS REVIEWED AND NEGATIVE. Dictation was performed using [employer] voice recognition software PHYSICAL EXAMINATION: GENERAL: Obese male in mild respiratory distress HEAD: Atraumatic, normocephalic. EYES: Pupils equal round and reactive to light, extraocular movements intact, sclera anicteric, conjunctiva are normal. ENT: Nares patent, oropharynx clear without exudates. Moist mucous membranes. NECK: Normal range of motion, supple without lymphadenopathy LUNGS: Coarse wheezing all throughout HEART: Regular rate and rhythm without murmurs ABDOMEN: Soft, nontender, nondistended abdomen. No guarding, no rebound. No masses appreciated. Musculoskeletal: Normal range of motion, no pitting or edema. No cyanosis. NEUROLOGICAL: Patient is confused SKIN: Warm, Dry, normal turgor, no rashes or lesions noted. Physical Exam - Vital signs Vitals: Resp Pulse Ox 24 H 95 04/15/16 19:54 04/15/16 19:54 Course - Re-evaluation Re-evalutation: 04/15/16 22:50 Patient was immediately started on duo nebs, lab work chest x-ray was performed. Given patient's hypoxemia I have ordered BiPAP for the patient. Patient will be admitted to his primary care physician for COPD CHF exacerbation which I believe is secondary to noncompliance and smoking Patient is quite altered, attempts to get out of bed, patient had to be restrained for his own safety as he is quite confused and is attempting to leave the emergency department but does not know what year it is or where he is located - Vital Signs Vital signs: Temp Pulse Resp BP Pulse Ox 28 H 155/74 H 94 04/15/16 20:01 04/15/16 20:01 04/15/16 20:01 - Laboratory Result Diagrams: 04/15/16 20:10 04/15/16 20:51 Laboratory results interpreted by me: 04/15/16 04/15/16 04/15/16 20:10 20:51 20:51 RDW 16.0 H Seg Neuts % (Manual) 84 H Lymphocytes % (Manual) 6 L Abs Neuts (Manual) 8.8 H Sodium 145.8 H Carbon Dioxide 39 H BUN 35 H Est GFR (Non-Af Amer) 58 L ALT 123 H NT-Pro-B Natriuret Pep 3810 H Total Protein 6.1 L - Diagnostic Test Radiology reviewed: Image reviewed, Reports reviewed Critical Care Note - Critical Care Note Total time excluding time spent on procedures (mins): 40 Comments: 40 minutes of critical care time spent in direct contact evaluating and reevaluating the patient, treating symptoms, reviewing labs and studies and speaking with family and consultants excluding any procedures Discharge - Discharge Clinical Impression: COPD (chronic obstructive pulmonary disease) Qualifiers: COPD type: COPD with acute exacerbation Qualified Code(s): J44.1 - Chronic obstructive pulmonary disease with (acute) exacerbation Acute and chronic respiratory failure ([id number]) Qualifiers: Respiratory failure complication: hypoxia Qualified Code(s): J96.21 - Acute and chronic respiratory failure with hypoxia CHF (congestive heart failure) Qualifiers: Congestive heart failure type: unspecified congestive heart failure type Congestive heart failure chronicity: unspecified congestive heart failure chronicity Qualified Code(s): I50.9 - Heart failure, unspecified Condition: Stable Disposition: ADMITTED INPATIENT Admitting Provider: [facility] Admitted: Telemetry Referrals: PHI STONE MD [Primary Care Provider] - Follow up as needed
[2016-04-15] MEDS ORDERED: ALBUTEROL SULFATE HFA (90 MCG/PUFF) 8 GM MDI (1 MDI/ER DISP) IH PRN (22:35)
[2016-04-15 22:44] LABS: VENOUS BLOOD BASE EXCESS 7.9 mmol/L; VENOUS BLOOD PH 7.33 (7.30-7.42)
[2016-04-15] MEDS ORDERED: (PENDING PHARMACY ID) (Tiotropium Bromide [Spiriva Respimat] 4 GM) IH SCH (22:45)
[2016-04-15 22:48] LABS: VENOUS BLOOD PCO2 71.2 mmHg (35-63)
[2016-04-15] MEDS ORDERED: LORAZEPAM INJ 2 MG/1 ML VIAL ONE (23:42)
[2016-04-15] MEDS ORDERED: FLUTICASONE NASAL SPRAY 50 MCG/SPRY 120 SPRAY/16 GM NASL ONE (23:45)
[2016-04-15] MEDS ORDERED: LORAZEPAM INJ 2 MG/1 ML VIAL IV ONE (23:45)
[2016-04-15] MEDS ORDERED: FLUTICASONE/SALMETEROL DISKUS 500-50 MCG/DOSE IH ONE (23:45)
[2016-04-15] MEDS ORDERED: PREDNISONE 20 MG TABLET PO ONE (23:45)
[2016-04-15] MEDS ORDERED: ASPIRIN 81 MG TABLET, CHEWABLE PO ONE (23:45)
[2016-04-16] MEDS ORDERED: KETAMINE HCL INJ 500 MG/10 ML VIAL ONE (00:49)
[2016-04-16] MEDS ORDERED: PROPOFOL 100 ML IV ONE ×2 (00:50→02:39)
--- NOTE | 2016-04-16 01:14 | ER Document Report ---
ED General - General Chief Complaint: Respiratory Distress Stated Complaint: RESPIRATORY ISSUES Mode of Arrival: Medic Cannot obtain history due to: Unstable vital signs, Altered mental status Notes: I was called to assess this patient who had presented with a COPD exacerbation, hypoxic on home oxygen, altered and combative. He had been placed on BiPAP and was failing to improve clinically. The nurse taking care of this patient for concern of failure of patient to respond to verbal or noxious stimuli. No history obtained from the patient at time of my assessment as he is completely unresponsive. TRAVEL OUTSIDE OF THE [place] IN LAST 30 DAYS: No - Related Data Allergies/Adverse Reactions: No Known Allergies Allergy (Verified 04/15/16 22:19) Past Medical History - General Information source: Patient, Emergency Med Personnel, [facility] Records - Social History Smoking Status: Current Every Day Smoker Cigarette use (# per day): Yes Chew tobacco use (# tins/day): No Drug Abuse: None Family History: Reviewed & Not Pertinent Patient has suicidal ideation: No Patient has homicidal ideation: No - Past Medical History Cardiac Medical History: Reports: Hx Congestive Heart Failure, Hx Hypertension Pulmonary Medical History: Reports: Hx COPD, Hx Pneumonia Endocrine Medical History: Reports: Hx Diabetes Mellitus Type 2 Psychiatric Medical History: Reports: Hx Depression - Immunizations Immunizations up to date: Yes Hx Diphtheria, Pertussis, Tetanus Vaccination: Yes Hx Pneumococcal Vaccination: 04/08/14 Review of Systems - Review of Systems -: Yes ROS unobtainable due to patient's medical condition Physical Exam - Vital signs Vitals: Resp Pulse Ox 24 H 95 04/15/16 19:54 04/15/16 19:54 Notes: PHYSICAL EXAMINATION: GENERAL: Patient is lying in the bed, on BiPAP, does not respond to verbal or noxious stimuli. Very ill in appearance HEAD: Atraumatic, normocephalic. EYES: Pupils equal round and reactive to light, extraocular movements intact, sclera anicteric, conjunctiva are normal. ENT: there is right-sided facial edema, Dry mucous membranes. NECK: supple without lymphadenopathy LUNGS: On BiPAP in respiratory distress breathing 30 times a minute. Shallow respirations. Coarse air movement bilaterally with faint expiratory wheezing. HEART: Regular tachycardia without murmurs ABDOMEN: Morbidly obese abdomen. Soft to palpation. EXTREMITIES: Plus edema of the left lower extremity, trace of the right lower extremity NEUROLOGICAL: Patient does not follow commands in any extremity, no response to noxious stimuli, does not open his eyes spontaneously or to noxious stimuli. He does withdrawal to pain in all 4 extremities PSYCH: Nonresponsive SKIN: Warm, Dry, normal turgor, no rashes or lesions noted. Course - Re-evaluation Re-evalutation: 04/16/16 01:12 After being brought to the bedside to assess this patient, it became clear that he was critically ill and failing BiPAP. Given his rapidly declining mental status, worsening pulse oximetry and work of breathing as well as very poor tidal volumes on BiPAP, taking less than 250 mL per given respiration, patient required intubation. This was performed using ketamine rocuronium. Propofol sedation initiated thereafter. First-pass attempt successful using the glidescope. I have contacted Dr. Paulson and informed him about the deterioration of this patient and the need for upgrade to the ICU level of care. Awaiting chest x-ray at this time. ABG has also been ordered 0200-I reassessed the patient the bedside remains hemodynamically stable at this time. Rales at the bases bilaterally. He remains probably sedated at this time. 04/16/16 03:20 Patient's oxygen saturations remained at 96-97% on 100% FiO2. Repeat chest x- ray does show that the ET tube is deep and had has been pulled back to the appropriate position. Patient otherwise has remained appropriately sedated and hemodynamically stable. He'll be transferred to the ICU. - Vital Signs Vital signs: Temp Pulse Resp BP Pulse Ox 98.3 F 14 134/98 H 99 04/16/16 02:00 04/16/16 03:11 04/16/16 03:11 04/16/16 03:11 - Laboratory Result Diagrams: 04/15/16 20:10 04/15/16 20:51 Laboratory results interpreted by me: 04/15/16 04/15/16 04/15/16 20:10 20:51 20:51 RDW 16.0 H Seg Neuts % (Manual) 84 H Lymphocytes % (Manual) 6 L Abs Neuts (Manual) 8.8 H VBG pCO2 VBG HCO3 Sodium 145.8 H Carbon Dioxide 39 H BUN 35 H Est GFR (Non-Af Amer) 58 L ALT 123 H NT-Pro-B Natriuret Pep 3810 H Total Protein 6.1 L 04/15/16 22:30 RDW Seg Neuts % (Manual) Lymphocytes % (Manual) Abs Neuts (Manual) VBG pCO2 71.2 H* VBG HCO3 37.0 H Sodium Carbon Dioxide BUN Est GFR (Non-Af Amer) ALT NT-Pro-B Natriuret Pep Total Protein - Diagnostic Test Radiology reviewed: Image reviewed, Reports reviewed Radiology results interpreted by me: 04/16/16 03:21 Chest x-ray: Bilateral pulmonary edema. Procedures - Intubation Orotracheal Time of Intubation: 01:03 Airway evaluation: Large tongue, Neck immobility, Obese Mallampati Classification: Class 2 Medications: Ketamine, Other - Rocuronium Intubation method: Orotracheal Blade size: 4 Equipment used: Glidescope ETT size: 8.0 ETT secured at: Gums ETT secured at (cm): 24 Breath Sounds after Intubation: Equal End tidal CO2 confirmed: Yes Ventilator settings: SIMV Tidal volume: 500 FiO2: 100 Respirations: 24 PEEP: 8 Post Intubation Xray: Yes Intubation Complications: No complications Critical Care Note - Critical Care Note Total time excluding time spent on procedures (mins): 35 Comments: Critical care time spent obtaining history from patient or surrogate, discussions with consultants, development of treatment plan with patient or surrogate, evaluation of patient's response to treatment, examination of patient , ordering and performing treatments and interventions, ordering and review of laboratory studies, re-evaluation of patient's condition, ordering and review of radiographic studies and review of old charts Discharge - Discharge Clinical Impression: COPD (chronic obstructive pulmonary disease) Qualifiers: COPD type: COPD with acute exacerbation Qualified Code(s): J44.1 - Chronic obstructive pulmonary disease with (acute) exacerbation Acute and chronic respiratory failure ([id number]) Qualifiers: Respiratory failure complication: hypoxia Qualified Code(s): J96.21 - Acute and chronic respiratory failure with hypoxia CHF (congestive heart failure) Qualifiers: Congestive heart failure type: unspecified congestive heart failure type Congestive heart failure chronicity: unspecified congestive heart failure chronicity Qualified Code(s): I50.9 - Heart failure, unspecified Condition: Stable Disposition: ADMITTED INPATIENT Admitting Provider: [facility] Unit Admitted: ICU
[2016-04-16] MEDS ORDERED: ROCURONIUM BROMIDE INJ 50 MG/5 ML VIAL IV ONE (01:15)
[2016-04-16] MEDS ORDERED: KETAMINE HCL INJ 500 MG/10 ML VIAL IV ONE (01:15)
[2016-04-16 02:15] LABS: ARTERIAL BLOOD BASE EXCESS 7.2 mmol/L; ARTERIAL BLOOD O2 SATURATION 98.1 % (94-98)
[2016-04-16] MEDS: PROPOFOL 100 ML IV PRN ×9 (03:34→23:22)
[2016-04-16] MEDS ORDERED: PHARMACY COMMUNICATION ORDER MC NR (04:30)
[2016-04-16 04:35] LABS: APPEARANCE,URINE CLEAR; BILIRUBIN,URINE NEGATIVE (NEGATIVE); GLUCOSE, URINE NEGATIVE (NEGATIVE); KETONES,URINE 20 mg/dL (NEGATIVE); LEUKOCYTE ESTERASE,URINE NEGATIVE (NEGATIVE); NITRITE,URINE NEGATIVE (NEGATIVE); PROTEIN,URINE NEGATIVE (NEGATIVE); URINE SPECIFIC GRAVITY 1.017; UROBILINOGEN,URINE NEGATIVE mg/dL (<2.0)
[2016-04-16 08:39] LABS: ARTERIAL BLOOD BASE EXCESS 8.9 mmol/L; ARTERIAL BLOOD O2 SATURATION 97.1 % (94-98)
[2016-04-16 08:46] LABS: ABSOLUTE EOSINOPHILS # (AUTO) 0.1 10^3/uL (0.0-0.6); ABSOLUTE LYMPHOCYTES (AUTO) 1.1 10^3/uL (0.5-4.7); ABSOLUTE MONOCYTES (AUTO) 0.7 10^3/uL (0.1-1.4); ABSOLUTE NEUT (AUTO) 6.5 10^3/uL (1.7-8.2); BASOPHILS % (AUTO) 0.1 % (0-2); EOSINOPHILS % (AUTO) 0.6 % (0-6); HEMATOCRIT 41.8 % (37.9-51.0); HEMOGLOBIN 14.2 g/dL (13.5-17.0); HGB HCT DIFFERENCE 0.8; LYMPHOCYTES % (AUTO) 13.1 % (13-45); MEAN CORPUSCULAR HEMOGLOBIN 30.9 pg (27.0-33.4); MEAN CORPUSCULAR HGB CONC 33.9 g/dL (32.0-36.0); MEAN CORPUSCULAR VOLUME 91 fl (80-97); MONOCYTES % (AUTO) 8.7 % (3-13); RED BLOOD COUNT 4.59 10^6/uL (4.35-5.55); RED CELL DISTRIBUTION WIDTH 15.9 % (11.5-14.0); SEGMENTED NEUTROPHILS % (AUTO) 77.5 % (42-78); WHITE BLOOD COUNT 8.4 10^3/uL (4.0-10.5)
[2016-04-16] MEDS: METFORMIN HCL 500 MG TABLET NG SCH (08:56)
[2016-04-16 09:15] LABS: ALANINE AMINOTRANSFERASE 82 U/L (21-72); ALBUMIN 2.7 g/dL (3.5-5.0); ALKALINE PHOSPHATASE 30 U/L (38-126); ANION GAP 6 (5-19); ASPARTATE AMINO TRANSFERASE 35 U/L (17-59); BILIRUBIN,TOTAL 1.3 mg/dL (0.2-1.3); BLOOD UREA NITROGEN 35 mg/dL (7-20); CALCIUM 8.7 mg/dL (8.4-10.2); CARBON DIOXIDE 35 mmol/L (22-30); CHLORIDE 103 mmol/L (98-107); CREATININE RESULT 0.93 mg/dL (0.52-1.25); GLUCOSE 75 mg/dL (75-110); POTASSIUM 4.4 mmol/L (3.6-5.0); SODIUM 144.2 mmol/L (137-145); TOTAL PROTEIN 4.8 g/dL (6.3-8.2); TRIGLYCERIDES 124 mg/dL (<150)
[2016-04-16] MEDS ORDERED: VANCOMYCIN HCL 0 MG in DEXTROSE 5%-WATER 250 ML IV NR (09:30)
[2016-04-16] MEDS ORDERED: ALBUTEROL SULFATE 0.083% NEB 2.5 MG/3 ML AMPUL NEB PRN (09:33)
[2016-04-16] MEDS ORDERED: FLUTICASONE/SALMETEROL DISKUS 500-50 MCG/DOSE IH SCH (10:00)
[2016-04-16] MEDS: ASPIRIN 81 MG TABLET, CHEWABLE NG SCH (11:15)
[2016-04-16] MEDS: LOSARTAN POTASSIUM 50 MG TABLET NG SCH (11:15)
[2016-04-16] MEDS: PREDNISONE 20 MG TABLET NG SCH (11:16)
[2016-04-16] MEDS ORDERED: VANCOMYCIN HCL 2,000 MG in DEXTROSE 5%-WATER 500 ML IV ONE (11:30)
[2016-04-16] MEDS: FLUTICASONE NASAL SPRAY 50 MCG/SPRY 120 SPRAY/16 GM NASL SCH (11:34)
--- NOTE | 2016-04-16 13:28 | PDOC CONSULTATION ---
Consultation Consult Date: 04/16/16 Attending physician:: PHI STONE Consult reason:: resp failure History of Present Illness Admission Date/PCP: 04/15/16 23:40 PHI STONE, History of Present Illness: NEAL DOMINGO is a 65 year old male Currently intubated and sedated. Recently discharged from hospital for congestive heart failure exacerbation of COPD he is being maintained on 5 L O2 per nasal cannula at home and apparently after reviewing emergency room records he continues to smoke at the time of his presentation he was hypoxic and was started on BiPAP but does not did not improve his hypoxia his confusion and he was subsequently intubated Past Medical History Cardiac Medical History: Reports: Congestive Heart Failure, Hypertension Pulmonary Medical History: Reports: Chronic Obstructive Pulmonary Disease (COPD) , Pneumonia Endocrine Medical History: Reports: Diabetes Mellitus Type 2 Psychiatric Medical History: Reports: Depression Social History Smoking Status: Current Every Day Smoker Passive smoke exposure as: Both Frequency of Alcohol Use: Occasional Hx Recreational Drug Use: No Drugs: None Hx Prescription Drug Abuse: No Family History Family History: Reviewed & Not Pertinent Parental Family History Reviewed: No Children Family History Reviewed: No Sibling(s) Family History Reviewed.: No Medication/Allergy Home Medications: Furosemide [Lasix 40 mg Tablet] 40 mg PO BID 04/16/16 Losartan Potassium [Cozaar 100 mg Tablet] 100 mg PO DAILY 04/16/16 Allergies/Adverse Reactions: No Known Allergies Allergy (Verified 04/15/16 22:19) Review of Systems ROS unobtainable: Due to endotracheal tube Physical Exam Vital Signs: Temp Pulse Resp BP Pulse Ox 96.8 F L 71 14 118/63 99 04/16/16 08:00 04/16/16 08:00 04/16/16 08:00 04/16/16 08:00 04/16/16 08:00 Intake & Output 04/15/16 04/16/16 04/17/16 06:59 06:59 06:59 Output Total 125 260 Balance -125 -260 Weight 150 kg General appearance: PRESENT: no acute distress, disheveled, well-developed, well -nourished Head exam: PRESENT: atraumatic, normocephalic Eye exam: PRESENT: conjunctiva pale Mouth exam: PRESENT: dry mucosa, neck supple, tongue midline, other - ET tube in place Teeth exam: PRESENT: edentulous Neck exam: ABSENT: carotid bruit, JVD, lymphadenopathy, thyromegaly Respiratory exam: PRESENT: decreased breath sounds, prolonged expiratory phas, rhonchi, symmetrical - Especially bibasilar changes, wheezes Cardiovascular exam: PRESENT: RRR, +S1, +S2 Pulses: PRESENT: normal carotid pulses GI/Abdominal exam: PRESENT: normal bowel sounds, soft. ABSENT: distended, guarding, mass, organolmegaly, rebound, tenderness Rectal exam: PRESENT: deferred Musculoskeletal exam: PRESENT: normal inspection Skin exam: PRESENT: dry, warm Results Laboratory Results: 04/16/16 08:38 04/16/16 08:38 04/16/16 04/16/16 04/16/16 01:24 04:10 08:10 WBC RBC Hgb Hct MCV MCH MCHC RDW Plt Count Seg Neutrophils % Lymphocytes % Monocytes % Eosinophils % Basophils % Absolute Neutrophils Absolute Lymphocytes Absolute Monocytes Absolute Eosinophils Absolute Basophils Carbonic Acid 1.79 H 1.76 H HCO3/H2CO3 Ratio 19:1 20:1 ABG pH 7.38 7.41 ABG pCO2 59.4 H 58.4 H ABG pO2 115.5 H 94.8 ABG HCO3 34.5 H 35.8 H ABG O2 Saturation 98.1 H 97.1 ABG Base Excess 7.2 8.9 FiO2 100% 80% Sodium Potassium Chloride Carbon Dioxide Anion Gap BUN Creatinine Est GFR ( Amer) Est GFR (Non-Af Amer) Glucose Calcium Total Bilirubin AST ALT Alkaline Phosphatase Total Protein Albumin Triglycerides Urine Color YELLOW Urine Appearance CLEAR Urine pH 5.0 Ur Specific [place] 1.017 Urine Protein NEGATIVE Urine Glucose (UA) NEGATIVE Urine Ketones 20 H Urine Blood NEGATIVE Urine Nitrite NEGATIVE Ur Leukocyte Esterase NEGATIVE Urine WBC (Auto) 2 Urine RBC (Auto) 3 04/16/16 04/16/16 08:38 08:38 WBC 8.4 RBC 4.59 Hgb 14.2 Hct 41.8 MCV 91 MCH 30.9 MCHC 33.9 RDW 15.9 H Plt Count 140 L Seg Neutrophils % 77.5 Lymphocytes % 13.1 Monocytes % 8.7 Eosinophils % 0.6 Basophils % 0.1 Absolute Neutrophils 6.5 Absolute Lymphocytes 1.1 Absolute Monocytes 0.7 Absolute Eosinophils 0.1 Absolute Basophils 0.0 Carbonic Acid HCO3/H2CO3 Ratio ABG pH ABG pCO2 ABG pO2 ABG HCO3 ABG O2 Saturation ABG Base Excess FiO2 Sodium 144.2 Potassium 4.4 Chloride 103 Carbon Dioxide 35 H Anion Gap 6 BUN 35 H Creatinine 0.93 Est GFR ( Amer) > 60 Est GFR (Non-Af Amer) > 60 Glucose 75 Calcium 8.7 Total Bilirubin 1.3 AST 35 ALT 82 H Alkaline Phosphatase 30 L Total Protein 4.8 L Albumin 2.7 L Triglycerides 124 Urine Color Urine Appearance Urine pH Ur Specific [place] Urine Protein Urine Glucose (UA) Urine Ketones Urine Blood Urine Nitrite Ur Leukocyte Esterase Urine WBC (Auto) Urine RBC (Auto) Impressions: Chest X-Ray 04/16/16 01:08 IMPRESSION: Vascular congestion with bilateral pleural effusions an basilar opacities. ET tube is low and should be pulled back 3 cm. Assessment & Plan - Diagnosis (1) Acute and chronic respiratory failure ([id number]) Qualifiers: Respiratory failure complication: hypoxia and hypercapnia Qualified Code(s): J96.21 - Acute and chronic respiratory failure with hypoxia; J96.22 - Acute and chronic respiratory failure with hypercapnia Is this a current diagnosis for this admission?: YesPlan: Continue to support with mechanical ventilation (2) COPD (chronic obstructive pulmonary disease) Qualifiers: COPD type: COPD with acute exacerbation Qualified Code(s): J44.1 - Chronic obstructive pulmonary disease with (acute) exacerbation Is this a current diagnosis for this admission?: YesPlan: Continuous bronchodilator therapy at fixed intervals (3) CHF (congestive heart failure) Qualifiers: Congestive heart failure type: unspecified congestive heart failure type Congestive heart failure chronicity: unspecified congestive heart failure chronicity Qualified Code(s): I50.9 - Heart failure, unspecified Is this a current diagnosis for this admission?: YesPlan: Diuresis is necessary patient has bilateral small effusions - Time Critical Time spent with patient: 35 or more minutes - 55 minute
[2016-04-16] MEDS: IPRATROPIUM/ALBUTEROL 0.5-2.5 MG/3 ML AMPUL NEB SCH ×2 (13:31→20:02)
[2016-04-16] MEDS: NORMAL SALINE 1000 ML 1,000 ML IV PRN (16:32)
[2016-04-16] MEDS ORDERED: LORAZEPAM 24 MG/ D5W 240 ML IV PRN (18:18)
--- NOTE | 2016-04-16 19:49 | PDOC H&P ---
History of Present Illness Admission Date/PCP: 04/15/16 23:40 BRITTNEEALETA STONE, History of Present Illness: Patient was just discharged on 04/14/2016 at the time he presented with acute hypercapnic respiratory failure with associated metabolic alkalosis,due to acute COPD exacerbation. He was treated successfully with intravenous Solu- Medrol, antibiotic, Levaquin and bronchodilators. When patient got home, he went back smoking again and he deteriorated very rapidly, he came to emergency room, his breathing was supported with positive pressure ventilation, BiPAP, but his condition continued to decline and he was ultimately intubated now on mechanical ventilation. Past Medical History Cardiac Medical History: Reports: Hypertension Pulmonary Medical History: Reports: Chronic Obstructive Pulmonary Disease (COPD) , Pneumonia Endocrine Medical History: Reports: Diabetes Mellitus Type 2 Psychiatric Medical History: Reports: Depression Social History Smoking Status: Current Every Day Smoker Frequency of Alcohol Use: Occasional Hx Recreational Drug Use: No Drugs: None Hx Prescription Drug Abuse: No Family History Family History: Reviewed & Not Pertinent Parental Family History Reviewed: Yes Children Family History Reviewed: Yes Sibling(s) Family History Reviewed.: Yes Medication/Allergy Home Medications: Furosemide [Lasix 40 mg Tablet] 40 mg PO BID 04/16/16 Losartan Potassium [Cozaar 100 mg Tablet] 100 mg PO DAILY 04/16/16 Allergies/Adverse Reactions: No Known Allergies Allergy (Verified 04/15/16 22:19) Review of Systems ROS unobtainable: Due to endotracheal tube, Due to mental status Physical Exam Vital Signs: Temp Pulse Resp BP Pulse Ox 98.1 F 69 14 113/62 94 04/16/16 18:42 04/16/16 18:42 04/16/16 18:42 04/16/16 18:42 04/16/16 18:42 Intake & Output 04/15/16 04/16/16 04/17/16 06:59 06:59 06:59 Intake Total 2423 Output Total 125 855 Balance -125 1568 Weight 150 kg Eye exam: PRESENT: PERRLA Respiratory exam: PRESENT: clear to auscultation coty, rhonchi Cardiovascular exam: PRESENT: +S1, +S2 GI/Abdominal exam: PRESENT: soft Results Laboratory Results: 04/16/16 08:38 04/16/16 08:38 04/16/16 04/16/16 04/16/16 01:24 04:10 08:10 WBC RBC Hgb Hct MCV MCH MCHC RDW Plt Count Seg Neutrophils % Lymphocytes % Monocytes % Eosinophils % Basophils % Absolute Neutrophils Absolute Lymphocytes Absolute Monocytes Absolute Eosinophils Absolute Basophils Carbonic Acid 1.79 H 1.76 H HCO3/H2CO3 Ratio 19:1 20:1 ABG pH 7.38 7.41 ABG pCO2 59.4 H 58.4 H ABG pO2 115.5 H 94.8 ABG HCO3 34.5 H 35.8 H ABG O2 Saturation 98.1 H 97.1 ABG Base Excess 7.2 8.9 FiO2 100% 80% Sodium Potassium Chloride Carbon Dioxide Anion Gap BUN Creatinine Est GFR ( Amer) Est GFR (Non-Af Amer) Glucose Calcium Total Bilirubin AST ALT Alkaline Phosphatase Total Protein Albumin Triglycerides Urine Color YELLOW Urine Appearance CLEAR Urine pH 5.0 Ur Specific [place] 1.017 Urine Protein NEGATIVE Urine Glucose (UA) NEGATIVE Urine Ketones 20 H Urine Blood NEGATIVE Urine Nitrite NEGATIVE Ur Leukocyte Esterase NEGATIVE Urine WBC (Auto) 2 Urine RBC (Auto) 3 04/16/16 04/16/16 08:38 08:38 WBC 8.4 RBC 4.59 Hgb 14.2 Hct 41.8 MCV 91 MCH 30.9 MCHC 33.9 RDW 15.9 H Plt Count 140 L Seg Neutrophils % 77.5 Lymphocytes % 13.1 Monocytes % 8.7 Eosinophils % 0.6 Basophils % 0.1 Absolute Neutrophils 6.5 Absolute Lymphocytes 1.1 Absolute Monocytes 0.7 Absolute Eosinophils 0.1 Absolute Basophils 0.0 Carbonic Acid HCO3/H2CO3 Ratio ABG pH ABG pCO2 ABG pO2 ABG HCO3 ABG O2 Saturation ABG Base Excess FiO2 Sodium 144.2 Potassium 4.4 Chloride 103 Carbon Dioxide 35 H Anion Gap 6 BUN 35 H Creatinine 0.93 Est GFR ( Amer) > 60 Est GFR (Non-Af Amer) > 60 Glucose 75 Calcium 8.7 Total Bilirubin 1.3 AST 35 ALT 82 H Alkaline Phosphatase 30 L Total Protein 4.8 L Albumin 2.7 L Triglycerides 124 Urine Color Urine Appearance Urine pH Ur Specific [place] Urine Protein Urine Glucose (UA) Urine Ketones Urine Blood Urine Nitrite Ur Leukocyte Esterase Urine WBC (Auto) Urine RBC (Auto) Impressions: KUB X-Ray 04/16/16 00:00 IMPRESSION: Nasogastric tube tip and side port in the stomach Chest X-Ray 04/16/16 01:08 IMPRESSION: Vascular congestion with bilateral pleural effusions an basilar opacities. ET tube is low and should be pulled back 3 cm. Assessment & Plan - Diagnosis (1) Acute and chronic respiratory failure ([id number]) Qualifiers: Respiratory failure complication: hypoxia and hypercapnia Qualified Code(s): J96.21 - Acute and chronic respiratory failure with hypoxia Is this a current diagnosis for this admission?: YesPlan: Patient is admitted into the hospital on mechanical ventilation, in intensive care unit pulmonary following (2) Type 2 diabetes mellitus Qualifiers: Diabetes mellitus complication status: with neurologic complications Diabetes mellitus complication detail: with polyneuropathy Diabetes mellitus banking consultant insulin use: with banking consultant use Qualified Code(s): E11.42 - Type 2 diabetes mellitus with diabetic polyneuropathy; 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
[2016-04-16] MEDS: VANCOMYCIN HCL 2,000 MG in DEXTROSE 5%-WATER 500 ML IV SCH (21:23)
[2016-04-17] MEDS: PROPOFOL 100 ML IV PRN ×7 (01:45→21:17)
[2016-04-17] MEDS: IPRATROPIUM/ALBUTEROL 0.5-2.5 MG/3 ML AMPUL NEB SCH ×4 (02:35→20:10)
[2016-04-17 04:19] LABS: ABSOLUTE LYMPHOCYTES (AUTO) 0.8 10^3/uL (0.5-4.7); ABSOLUTE MONOCYTES (AUTO) 0.7 10^3/uL (0.1-1.4); ABSOLUTE NEUT (AUTO) 6.9 10^3/uL (1.7-8.2); BASOPHILS % (AUTO) 0.4 % (0-2); EOSINOPHILS % (AUTO) 0.3 % (0-6); HEMATOCRIT 42.1 % (37.9-51.0); HEMOGLOBIN 13.8 g/dL (13.5-17.0); HGB HCT DIFFERENCE -0.7; LYMPHOCYTES % (AUTO) 9.1 % (13-45); MEAN CORPUSCULAR HEMOGLOBIN 30.2 pg (27.0-33.4); MEAN CORPUSCULAR HGB CONC 32.7 g/dL (32.0-36.0); MEAN CORPUSCULAR VOLUME 92 fl (80-97); MONOCYTES % (AUTO) 7.9 % (3-13); RED BLOOD COUNT 4.56 10^6/uL (4.35-5.55); RED CELL DISTRIBUTION WIDTH 15.9 % (11.5-14.0); SEGMENTED NEUTROPHILS % (AUTO) 82.3 % (42-78); WHITE BLOOD COUNT 8.3 10^3/uL (4.0-10.5)
[2016-04-17 04:32] LABS: ANION GAP 5 (5-19); BLOOD UREA NITROGEN 25 mg/dL (7-20); CALCIUM 8.3 mg/dL (8.4-10.2); CARBON DIOXIDE 36 mmol/L (22-30); CHLORIDE 99 mmol/L (98-107); CREATININE RESULT 0.92 mg/dL (0.52-1.25); GLUCOSE 112 mg/dL (75-110); MAGNESIUM 2.4 mg/dL (1.6-2.3); SODIUM 139.7 mmol/L (137-145); TRIGLYCERIDES 117 mg/dL (<150)
[2016-04-17] MEDS: NORMAL SALINE 1000 ML 1,000 ML IV PRN ×2 (05:34→18:27)
[2016-04-17 06:06] LABS: ARTERIAL BLOOD BASE EXCESS 9.8 mmol/L; ARTERIAL BLOOD O2 SATURATION 94.1 % (94-98)
[2016-04-17] MEDS: METFORMIN HCL 500 MG TABLET NG SCH (07:46)
[2016-04-17] MEDS: PREDNISONE 20 MG TABLET NG SCH (10:28)
[2016-04-17] MEDS: LOSARTAN POTASSIUM 50 MG TABLET NG SCH (10:28)
[2016-04-17] MEDS: ASPIRIN 81 MG TABLET, CHEWABLE NG SCH (10:28)
[2016-04-17] MEDS: VANCOMYCIN HCL 2,000 MG in DEXTROSE 5%-WATER 500 ML IV SCH ×2 (10:28→21:54)
[2016-04-17] MEDS: FLUTICASONE NASAL SPRAY 50 MCG/SPRY 120 SPRAY/16 GM NASL SCH (10:44)
[2016-04-18] MEDS: PROPOFOL 100 ML IV PRN ×9 (00:23→23:51)
[2016-04-18] MEDS: IPRATROPIUM/ALBUTEROL 0.5-2.5 MG/3 ML AMPUL NEB SCH ×4 (02:36→19:53)
[2016-04-18 04:04] LABS: ARTERIAL BLOOD BASE EXCESS 4.8 mmol/L; ARTERIAL BLOOD O2 SATURATION 93.5 % (94-98)
[2016-04-18] MEDS: NORMAL SALINE 1000 ML 1,000 ML IV PRN (05:55)
[2016-04-18] MEDS: METFORMIN HCL 500 MG TABLET NG SCH (08:02)
[2016-04-18] MEDS: VANCOMYCIN HCL 2,000 MG in DEXTROSE 5%-WATER 500 ML IV SCH ×2 (10:00→21:14)
[2016-04-18] MEDS: ASPIRIN 81 MG TABLET, CHEWABLE NG SCH (10:01)
[2016-04-18] MEDS: PREDNISONE 20 MG TABLET NG SCH (10:01)
[2016-04-18] MEDS: LOSARTAN POTASSIUM 50 MG TABLET NG SCH (10:01)
[2016-04-18] MEDS: FLUTICASONE NASAL SPRAY 50 MCG/SPRY 120 SPRAY/16 GM NASL SCH (10:02)
[2016-04-18] MEDS: FUROSEMIDE INJ/PF 20 MG/2 ML SDV IV SCH ×2 (10:25→21:22)
[2016-04-18] MEDS: FAMOTIDINE INJ/PF 20 MG/2 ML SDV IV SCH ×2 (10:25→21:21)
[2016-04-18 12:58] LABS: APPEARANCE,URINE CLEAR; BILIRUBIN,URINE NEGATIVE (NEGATIVE); GLUCOSE, URINE NEGATIVE (NEGATIVE); KETONES,URINE NEGATIVE (NEGATIVE); LEUKOCYTE ESTERASE,URINE NEGATIVE (NEGATIVE); NITRITE,URINE NEGATIVE (NEGATIVE); PROTEIN,URINE NEGATIVE (NEGATIVE); URINE SPECIFIC GRAVITY 1.006; UROBILINOGEN,URINE NEGATIVE mg/dL (<2.0)
--- NOTE | 2016-04-18 19:52 | PDOC PROGRESS REPORT ---
Subjective Progress Note for:: 04/17/16 Subjective:: Patient sedated and intubated Physical Exam Vital Signs: Temp Pulse Resp BP Pulse Ox 98.8 F 79 14 126/60 H 94 04/17/16 19:00 04/17/16 19:02 04/17/16 19:02 04/17/16 19:02 04/17/16 19:02 Intake & Output 04/16/16 04/17/16 04/18/16 06:59 06:59 06:59 Intake Total 4541 2522 Output Total 125 1840 945 Balance -125 2701 1577 Weight 150 kg 150.8 kg Eye exam: PRESENT: PERRLA Respiratory exam: PRESENT: rhonchi Cardiovascular exam: PRESENT: +S1, +S2 Results Laboratory Results: 04/17/16 03:35 04/17/16 03:35 04/17/16 04/17/16 04/17/16 03:35 03:35 05:55 WBC 8.3 RBC 4.56 Hgb 13.8 Hct 42.1 MCV 92 MCH 30.2 MCHC 32.7 RDW 15.9 H Plt Count 132 L Seg Neutrophils % 82.3 H Lymphocytes % 9.1 L Monocytes % 7.9 Eosinophils % 0.3 Basophils % 0.4 Absolute Neutrophils 6.9 Absolute Lymphocytes 0.8 Absolute Monocytes 0.7 Absolute Eosinophils 0.0 Absolute Basophils 0.0 Carbonic Acid 1.55 H HCO3/H2CO3 Ratio 22:1 ABG pH 7.46 H ABG pCO2 51.5 H ABG pO2 67.9 L ABG HCO3 35.5 H ABG O2 Saturation 94.1 ABG Base Excess 9.8 FiO2 65% Sodium 139.7 Potassium 4.0 Chloride 99 Carbon Dioxide 36 H Anion Gap 5 BUN 25 H Creatinine 0.92 Est GFR ( Amer) > 60 Est GFR (Non-Af Amer) > 60 Glucose 112 H Calcium 8.3 L Magnesium 2.4 H Triglycerides 117 04/16/16 05:00 Nasophary (Mrsa Only) MRSA Surveillance Culture - Final MRSA RECOVERED Impressions: KUB X-Ray 04/16/16 00:00 IMPRESSION: Nasogastric tube tip and side port in the stomach Chest X-Ray 04/16/16 01:08 IMPRESSION: Vascular congestion with bilateral pleural effusions an basilar opacities. ET tube is low and should be pulled back 3 cm. Assessment & Plan - Diagnosis (1) Acute and chronic respiratory failure ([id number]) Qualifiers: Respiratory failure complication: hypoxia and hypercapnia Qualified Code(s): J96.21 - Acute and chronic respiratory failure with hypoxia Is this a current diagnosis for this admission?: Yes (2) Type 2 diabetes mellitus Qualifiers: Diabetes mellitus complication status: with neurologic complications Diabetes mellitus complication detail: with polyneuropathy Diabetes mellitus penitentiary insulin use: with extermination inspector use Qualified Code(s): E11.42 - Type 2 diabetes mellitus with diabetic polyneuropathy; 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
--- NOTE | 2016-04-18 19:53 | PDOC PROGRESS REPORT ---
Subjective Progress Note for:: 04/18/16 Subjective:: Patient sedated and intubated Physical Exam Vital Signs: Temp Pulse Resp BP Pulse Ox 99.7 F 79 14 100/54 L 95 04/18/16 18:00 04/18/16 18:00 04/18/16 18:00 04/18/16 18:00 04/18/16 18:00 Intake & Output 04/17/16 04/18/16 04/19/16 06:59 06:59 06:59 Intake Total 4541 2522 1759 Output Total 1840 2410 2580 Balance 2701 112 -821 Weight 150.8 kg General appearance: PRESENT: no acute distress Eye exam: PRESENT: PERRLA Respiratory exam: PRESENT: rhonchi Cardiovascular exam: PRESENT: +S1, +S2 Results Laboratory Results: 04/17/16 03:35 04/17/16 03:35 04/18/16 04/18/16 03:50 12:15 Carbonic Acid 1.32 HCO3/H2CO3 Ratio 22:1 ABG pH 7.45 ABG pCO2 43.9 ABG pO2 65.2 L ABG HCO3 29.6 H ABG O2 Saturation 93.5 L ABG Base Excess 4.8 FiO2 65% Urine Color STRAW Urine Appearance CLEAR Urine pH 5.0 Ur Specific [place] 1.006 Urine Protein NEGATIVE Urine Glucose (UA) NEGATIVE Urine Ketones NEGATIVE Urine Blood NEGATIVE Urine Nitrite NEGATIVE Ur Leukocyte Esterase NEGATIVE Urine WBC (Auto) 1 Urine RBC (Auto) 2 04/16/16 04:20 Tracheal Aspirate Gram Stain - Final 04/16/16 04:20 Tracheal Aspirate Sputum Culture - Final Corynebacterium Striatum Normal [place] Absent 04/16/16 04:10 Catheterized Urine Urine Culture - Final NO GROWTH 2 DAYS Impressions: KUB X-Ray 04/16/16 00:00 IMPRESSION: Nasogastric tube tip and side port in the stomach Chest X-Ray 04/16/16 01:08 IMPRESSION: Vascular congestion with bilateral pleural effusions an basilar opacities. ET tube is low and should be pulled back 3 cm. Assessment & Plan - Diagnosis (1) Acute and chronic respiratory failure ([id number]) Qualifiers: Respiratory failure complication: hypoxia and hypercapnia Qualified Code(s): J96.21 - Acute and chronic respiratory failure with hypoxia Is this a current diagnosis for this admission?: Yes (2) Type 2 diabetes mellitus Qualifiers: Diabetes mellitus complication status: with neurologic complications Diabetes mellitus complication detail: with polyneuropathy Diabetes mellitus alf insulin use: with buttermaker use Qualified Code(s): E11.42 - Type 2 diabetes mellitus with diabetic polyneuropathy; Z79.4 - 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
[2016-04-19] MEDS: PROPOFOL 100 ML IV PRN ×6 (01:56→22:41)
[2016-04-19] MEDS: IPRATROPIUM/ALBUTEROL 0.5-2.5 MG/3 ML AMPUL NEB SCH ×4 (02:34→20:03)
[2016-04-19 04:20] LABS: ABSOLUTE LYMPHOCYTES (AUTO) 0.7 10^3/uL (0.5-4.7); ABSOLUTE MONOCYTES (AUTO) 0.9 10^3/uL (0.1-1.4); ABSOLUTE NEUT (AUTO) 6.9 10^3/uL (1.7-8.2); BASOPHILS % (AUTO) 0.3 % (0-2); EOSINOPHILS % (AUTO) 0.3 % (0-6); LYMPHOCYTES % (AUTO) 8.2 % (13-45); MEAN CORPUSCULAR HEMOGLOBIN 30.9 pg (27.0-33.4); MEAN CORPUSCULAR HGB CONC 34.2 g/dL (32.0-36.0); MEAN CORPUSCULAR VOLUME 90 fl (80-97); MONOCYTES % (AUTO) 10.2 % (3-13); RED BLOOD COUNT 4.54 10^6/uL (4.35-5.55); RED CELL DISTRIBUTION WIDTH 16.4 % (11.5-14.0); WHITE BLOOD COUNT 8.5 10^3/uL (4.0-10.5)
[2016-04-19 04:39] LABS: ALANINE AMINOTRANSFERASE 44 U/L (21-72); ALBUMIN 2.7 g/dL (3.5-5.0); ALKALINE PHOSPHATASE 31 U/L (38-126); ANION GAP 5 (5-19); ASPARTATE AMINO TRANSFERASE 28 U/L (17-59); BILIRUBIN,TOTAL 0.8 mg/dL (0.2-1.3); BLOOD UREA NITROGEN 26 mg/dL (7-20); CALCIUM 8.1 mg/dL (8.4-10.2); CARBON DIOXIDE 36 mmol/L (22-30); CHLORIDE 100 mmol/L (98-107); CREATININE RESULT 0.94 mg/dL (0.52-1.25); GLUCOSE 95 mg/dL (75-110); MAGNESIUM 2.3 mg/dL (1.6-2.3); POTASSIUM 4.2 mmol/L (3.6-5.0); SODIUM 140.9 mmol/L (137-145); TOTAL PROTEIN 4.9 g/dL (6.3-8.2)
[2016-04-19 04:52] LABS: FREE T3 1.66 pg/mL (2.77-5.27)
[2016-04-19 05:06] LABS: THYROID STIMULATING HORMONE 0.96 uIU/mL (0.47-4.68)
[2016-04-19 05:26] LABS: ARTERIAL BLOOD BASE EXCESS 7.8 mmol/L; ARTERIAL BLOOD O2 SATURATION 96.7 % (94-98)
[2016-04-19] MEDS: METFORMIN HCL 500 MG TABLET NG SCH (08:49)
[2016-04-19] MEDS: LOSARTAN POTASSIUM 50 MG TABLET NG SCH (09:47)
[2016-04-19] MEDS: ASPIRIN 81 MG TABLET, CHEWABLE NG SCH (09:47)
[2016-04-19] MEDS: FAMOTIDINE INJ/PF 20 MG/2 ML SDV IV SCH ×2 (09:48→22:05)
[2016-04-19] MEDS: PREDNISONE 20 MG TABLET NG SCH (09:48)
[2016-04-19] MEDS: FUROSEMIDE INJ/PF 20 MG/2 ML SDV IV SCH ×2 (09:48→22:05)
[2016-04-19] MEDS: VANCOMYCIN HCL 2,000 MG in DEXTROSE 5%-WATER 500 ML IV SCH ×2 (09:49→22:05)
[2016-04-19] MEDS: FLUTICASONE NASAL SPRAY 50 MCG/SPRY 120 SPRAY/16 GM NASL SCH (10:01)
--- NOTE | 2016-04-19 12:58 | PDOC PROGRESS REPORT ---
Subjective Progress Note for:: 04/19/16 Subjective:: Remains intubated and sedated Physical Exam Vital Signs: Temp Pulse Resp BP Pulse Ox 97.3 F 82 21 H 133/65 H 95 04/19/16 08:00 04/19/16 08:07 04/19/16 08:07 04/19/16 08:00 04/19/16 08:07 Intake & Output 04/18/16 04/19/16 04/20/16 06:59 06:59 06:59 Intake Total 2522 3300 Output Total 2410 4330 350 Balance 112 -1030 -350 Weight 148.7 kg General appearance: PRESENT: disheveled, obese Head exam: PRESENT: atraumatic, normocephalic Eye exam: PRESENT: conjunctiva pale Mouth exam: PRESENT: tongue midline, other - ET tube in place Neck exam: ABSENT: carotid bruit, JVD, lymphadenopathy, thyromegaly Respiratory exam: PRESENT: decreased breath sounds, prolonged expiratory phas, rales, rhonchi, symmetrical, unlabored, wheezes Cardiovascular exam: PRESENT: RRR, +S1, +S2 Pulses: PRESENT: normal radial pulses GI/Abdominal exam: PRESENT: normal bowel sounds, soft. ABSENT: distended, guarding, mass, organolmegaly, rebound, tenderness Rectal exam: PRESENT: deferred Gentrourinary exam: PRESENT: indwelling catheter Extremities exam: PRESENT: +1 edema Skin exam: PRESENT: dry, warm Results Laboratory Results: 04/19/16 03:52 04/19/16 03:52 04/18/16 04/19/16 04/19/16 12:15 03:52 03:52 WBC 8.5 RBC 4.54 Hgb 14.0 Hct 41.0 MCV 90 MCH 30.9 MCHC 34.2 RDW 16.4 H Plt Count 146 L Seg Neutrophils % 81.0 H Lymphocytes % 8.2 L Monocytes % 10.2 Eosinophils % 0.3 Basophils % 0.3 Absolute Neutrophils 6.9 Absolute Lymphocytes 0.7 Absolute Monocytes 0.9 Absolute Eosinophils 0.0 Absolute Basophils 0.0 Carbonic Acid HCO3/H2CO3 Ratio ABG pH ABG pCO2 ABG pO2 ABG HCO3 ABG O2 Saturation ABG Base Excess FiO2 Sodium 140.9 Potassium 4.2 Chloride 100 Carbon Dioxide 36 H Anion Gap 5 BUN 26 H Creatinine 0.94 Est GFR ( Amer) > 60 Est GFR (Non-Af Amer) > 60 Glucose 95 Calcium 8.1 L Magnesium 2.3 Total Bilirubin 0.8 AST 28 ALT 44 Alkaline Phosphatase 31 L Total Protein 4.9 L Albumin 2.7 L TSH Free T4 Free T3 pg/mL Urine Color STRAW Urine Appearance CLEAR Urine pH 5.0 Ur Specific [place] 1.006 Urine Protein NEGATIVE Urine Glucose (UA) NEGATIVE Urine Ketones NEGATIVE Urine Blood NEGATIVE Urine Nitrite NEGATIVE Ur Leukocyte Esterase NEGATIVE Urine WBC (Auto) 1 Urine RBC (Auto) 2 04/19/16 04/19/16 03:52 05:15 WBC RBC Hgb Hct MCV MCH MCHC RDW Plt Count Seg Neutrophils % Lymphocytes % Monocytes % Eosinophils % Basophils % Absolute Neutrophils Absolute Lymphocytes Absolute Monocytes Absolute Eosinophils Absolute Basophils Carbonic Acid 1.53 H HCO3/H2CO3 Ratio 21:1 ABG pH 7.44 ABG pCO2 50.7 H ABG pO2 86.1 ABG HCO3 33.5 H ABG O2 Saturation 96.7 ABG Base Excess 7.8 FiO2 60% Sodium Potassium Chloride Carbon Dioxide Anion Gap BUN Creatinine Est GFR ( Amer) Est GFR (Non-Af Amer) Glucose Calcium Magnesium Total Bilirubin AST ALT Alkaline Phosphatase Total Protein Albumin TSH 0.96 Free T4 1.13 Free T3 pg/mL 1.66 L Urine Color Urine Appearance Urine pH Ur Specific [place] Urine Protein Urine Glucose (UA) Urine Ketones Urine Blood Urine Nitrite Ur Leukocyte Esterase Urine WBC (Auto) Urine RBC (Auto) 04/16/16 04:20 Tracheal Aspirate Gram Stain - Final 04/16/16 04:20 Tracheal Aspirate Sputum Culture - Final Corynebacterium Striatum Normal [place] Absent 04/16/16 04:10 Catheterized Urine Urine Culture - Final NO GROWTH 2 DAYS Impressions: KUB X-Ray 04/16/16 00:00 IMPRESSION: Nasogastric tube tip and side port in the stomach Chest X-Ray 04/19/16 06:00 IMPRESSION: Pneumonia or asymmetric edema. No significant change. Assessment & Plan - Diagnosis (1) Acute and chronic respiratory failure ([id number]) Qualifiers: Respiratory failure complication: hypoxia and hypercapnia Qualified Code(s): J96.21 - Acute and chronic respiratory failure with hypoxia Is this a current diagnosis for this admission?: YesPlan: FiO2 requirements 50% respiratory rate minute ventilation within normal will continue to wean towards baseline (2) COPD (chronic obstructive pulmonary disease) Qualifiers: COPD type: COPD with acute exacerbation Qualified Code(s): J44.1 - Chronic obstructive pulmonary disease with (acute) exacerbation Is this a current diagnosis for this admission?: YesPlan: Continue current bronchodilator therapy (3) CHF (congestive heart failure) Qualifiers: Congestive heart failure type: unspecified congestive heart failure type Congestive heart failure chronicity: unspecified congestive heart failure chronicity Qualified Code(s): I50.9 - Heart failure, unspecified Is this a current diagnosis for this admission?: YesPlan: Diuretics as needed judicious use of fluids - Time Critical Time spent with patient: 25-34 minutes - 35 minutes
--- NOTE | 2016-04-19 13:01 | PDOC PROGRESS REPORT ---
Subjective Progress Note for:: 04/18/16 Subjective:: intubated and sedated Physical Exam Vital Signs: Temp Pulse Resp BP Pulse Ox 99.7 F 81 14 118/58 L 93 04/18/16 07:35 04/18/16 07:57 04/18/16 07:35 04/18/16 07:35 04/18/16 09:12 Intake & Output 04/17/16 04/18/16 04/19/16 06:59 06:59 06:59 Intake Total 4541 2522 Output Total 1840 2410 105 Balance 2701 112 -105 Weight 150.8 kg General appearance: PRESENT: no acute distress, disheveled, obese Head exam: PRESENT: atraumatic, normocephalic Eye exam: PRESENT: conjunctiva pale Mouth exam: PRESENT: tongue midline, other - ET tube in place Neck exam: ABSENT: carotid bruit, JVD, lymphadenopathy, thyromegaly Respiratory exam: PRESENT: decreased breath sounds, prolonged expiratory phas, rhonchi, symmetrical, unlabored Cardiovascular exam: PRESENT: RRR, +S1, +S2 Pulses: PRESENT: normal radial pulses GI/Abdominal exam: PRESENT: normal bowel sounds, soft. ABSENT: distended, guarding, mass, organolmegaly, rebound, tenderness Rectal exam: PRESENT: deferred Gentrourinary exam: PRESENT: indwelling catheter Extremities exam: PRESENT: +1 edema Skin exam: PRESENT: dry, warm Results Laboratory Results: 04/17/16 03:35 04/17/16 03:35 04/18/16 03:50 Carbonic Acid 1.32 HCO3/H2CO3 Ratio 22:1 ABG pH 7.45 ABG pCO2 43.9 ABG pO2 65.2 L ABG HCO3 29.6 H ABG O2 Saturation 93.5 L ABG Base Excess 4.8 FiO2 65% 04/16/16 04:10 Catheterized Urine Urine Culture - Final NO GROWTH 2 DAYS 04/16/16 05:00 Nasophary (Mrsa Only) MRSA Surveillance Culture - Final MRSA RECOVERED Impressions: KUB X-Ray 04/16/16 00:00 IMPRESSION: Nasogastric tube tip and side port in the stomach Chest X-Ray 04/16/16 01:08 IMPRESSION: Vascular congestion with bilateral pleural effusions an basilar opacities. ET tube is low and should be pulled back 3 cm. Assessment & Plan - Diagnosis (1) Acute and chronic respiratory failure ([id number]) Qualifiers: Respiratory failure complication: hypoxia and hypercapnia Qualified Code(s): J96.21 - Acute and chronic respiratory failure with hypoxia Is this a current diagnosis for this admission?: YesPlan: Although patient on oxygen at home FiO2 requirements remained high (2) COPD (chronic obstructive pulmonary disease) Qualifiers: COPD type: COPD with acute exacerbation Qualified Code(s): J44.1 - Chronic obstructive pulmonary disease with (acute) exacerbation Is this a current diagnosis for this admission?: Yes (3) CHF (congestive heart failure) Qualifiers: Congestive heart failure type: unspecified congestive heart failure type Congestive heart failure chronicity: unspecified congestive heart failure chronicity Qualified Code(s): I50.9 - Heart failure, unspecified Is this a current diagnosis for this admission?: YesPlan: Diuretics as needed judicious use of fluids - Time Critical Time spent with patient: 35 or more minutes - 35 minutes
--- NOTE | 2016-04-19 13:03 | PDOC PROGRESS REPORT ---
Subjective Progress Note for:: 04/18/16 Subjective:: intubated and sedated Physical Exam Vital Signs: Temp Pulse Resp BP Pulse Ox 99.7 F 81 14 118/58 L 93 04/18/16 07:35 04/18/16 07:57 04/18/16 07:35 04/18/16 07:35 04/18/16 09:12 Intake & Output 04/17/16 04/18/16 04/19/16 06:59 06:59 06:59 Intake Total 4541 2522 Output Total 1840 2410 105 Balance 2701 112 -105 Weight 150.8 kg General appearance: PRESENT: disheveled, obese Head exam: PRESENT: atraumatic, normocephalic Eye exam: PRESENT: conjunctiva pale Neck exam: ABSENT: carotid bruit, JVD, lymphadenopathy, thyromegaly Respiratory exam: PRESENT: decreased breath sounds, prolonged expiratory phas, rales, rhonchi, symmetrical, unlabored Cardiovascular exam: PRESENT: RRR, +S1, +S2 Pulses: PRESENT: normal radial pulses GI/Abdominal exam: PRESENT: normal bowel sounds, soft. ABSENT: distended, guarding, mass, organolmegaly, rebound, tenderness Rectal exam: PRESENT: deferred Gentrourinary exam: PRESENT: indwelling catheter Extremities exam: PRESENT: +1 edema Results Laboratory Results: 04/17/16 03:35 04/17/16 03:35 04/18/16 03:50 Carbonic Acid 1.32 HCO3/H2CO3 Ratio 22:1 ABG pH 7.45 ABG pCO2 43.9 ABG pO2 65.2 L ABG HCO3 29.6 H ABG O2 Saturation 93.5 L ABG Base Excess 4.8 FiO2 65% 04/16/16 04:10 Catheterized Urine Urine Culture - Final NO GROWTH 2 DAYS 04/16/16 05:00 Nasophary (Mrsa Only) MRSA Surveillance Culture - Final MRSA RECOVERED Impressions: KUB X-Ray 04/16/16 00:00 IMPRESSION: Nasogastric tube tip and side port in the stomach Chest X-Ray 04/16/16 01:08 IMPRESSION: Vascular congestion with bilateral pleural effusions an basilar opacities. ET tube is low and should be pulled back 3 cm. Assessment & Plan - Diagnosis (1) Acute and chronic respiratory failure ([id number]) Qualifiers: Respiratory failure complication: hypoxia and hypercapnia Qualified Code(s): J96.21 - Acute and chronic respiratory failure with hypoxia Is this a current diagnosis for this admission?: YesPlan: Continue supplemental oxygenation and ventilation as necessary promote good pulmonary hygiene (2) COPD (chronic obstructive pulmonary disease) Qualifiers: COPD type: COPD with acute exacerbation Qualified Code(s): J44.1 - Chronic obstructive pulmonary disease with (acute) exacerbation Is this a current diagnosis for this admission?: YesPlan: Continue current bronchodilator therapy (3) CHF (congestive heart failure) Qualifiers: Congestive heart failure type: unspecified congestive heart failure type Congestive heart failure chronicity: unspecified congestive heart failure chronicity Qualified Code(s): I50.9 - Heart failure, unspecified Is this a current diagnosis for this admission?: YesPlan: Diuretics as needed judicious use of fluids - Time Critical Time spent with patient: 35 or more minutes - 35 minutes
[2016-04-19] MEDS: NORMAL SALINE 1000 ML 1,000 ML IV PRN (16:45)
--- NOTE | 2016-04-19 20:52 | PDOC PROGRESS REPORT ---
[id number] Exam Vital Signs: Temp Pulse Resp BP Pulse Ox 99.5 F 72 18 127/58 H 94 04/19/16 19:33 04/19/16 18:00 04/19/16 18:00 04/19/16 18:00 04/19/16 18:00 Intake & Output 04/18/16 04/19/16 04/20/16 06:59 06:59 06:59 Intake Total 2522 3300 2704 Output Total 2415 4330 3450 Balance 112 -1030 -746 Weight 148.7 kg Eye exam: PRESENT: PERRLA Respiratory exam: PRESENT: clear to auscultation coty Cardiovascular exam: PRESENT: +S1, +S2 GI/Abdominal exam: PRESENT: soft Results Laboratory Results: 04/19/16 03:52 04/19/16 03:52 04/19/16 04/19/16 04/19/16 03:52 03:52 03:52 WBC 8.5 RBC 4.54 Hgb 14.0 Hct 41.0 MCV 90 MCH 30.9 MCHC 34.2 RDW 16.4 H Plt Count 146 L Seg Neutrophils % 81.0 H Lymphocytes % 8.2 L Monocytes % 10.2 Eosinophils % 0.3 Basophils % 0.3 Absolute Neutrophils 6.9 Absolute Lymphocytes 0.7 Absolute Monocytes 0.9 Absolute Eosinophils 0.0 Absolute Basophils 0.0 Carbonic Acid HCO3/H2CO3 Ratio ABG pH ABG pCO2 ABG pO2 ABG HCO3 ABG O2 Saturation ABG Base Excess FiO2 Sodium 140.9 Potassium 4.2 Chloride 100 Carbon Dioxide 36 H Anion Gap 5 BUN 26 H Creatinine 0.94 Est GFR ( Amer) > 60 Est GFR (Non-Af Amer) > 60 Glucose 95 Calcium 8.1 L Magnesium 2.3 Total Bilirubin 0.8 AST 28 ALT 44 Alkaline Phosphatase 31 L Total Protein 4.9 L Albumin 2.7 L TSH 0.96 Free T4 1.13 Free T3 pg/mL 1.66 L 04/19/16 05:15 WBC RBC Hgb Hct MCV MCH MCHC RDW Plt Count Seg Neutrophils % Lymphocytes % Monocytes % Eosinophils % Basophils % Absolute Neutrophils Absolute Lymphocytes Absolute Monocytes Absolute Eosinophils Absolute Basophils Carbonic Acid 1.53 H HCO3/H2CO3 Ratio 21:1 ABG pH 7.44 ABG pCO2 50.7 H ABG pO2 86.1 ABG HCO3 33.5 H ABG O2 Saturation 96.7 ABG Base Excess 7.8 FiO2 60% Sodium Potassium Chloride Carbon Dioxide Anion Gap BUN Creatinine Est GFR ( Amer) Est GFR (Non-Af Amer) Glucose Calcium Magnesium Total Bilirubin AST ALT Alkaline Phosphatase Total Protein Albumin TSH Free T4 Free T3 pg/mL Impressions: KUB X-Ray 04/16/16 00:00 IMPRESSION: Nasogastric tube tip and side port in the stomach Chest X-Ray 04/19/16 06:00 IMPRESSION: Pneumonia or asymmetric edema. No significant change. 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
[2016-04-20] MEDS: PROPOFOL 100 ML IV PRN ×8 (00:40→22:04)
[2016-04-20] MEDS: IPRATROPIUM/ALBUTEROL 0.5-2.5 MG/3 ML AMPUL NEB SCH ×4 (02:15→19:59)
[2016-04-20 04:55] LABS: HEMATOCRIT 43.4 % (37.9-51.0); HEMOGLOBIN 13.8 g/dL (13.5-17.0); MEAN CORPUSCULAR HEMOGLOBIN 29.6 pg (27.0-33.4); MEAN CORPUSCULAR HGB CONC 31.9 g/dL (32.0-36.0); MEAN CORPUSCULAR VOLUME 93 fl (80-97); RED BLOOD COUNT 4.68 10^6/uL (4.35-5.55); RED CELL DISTRIBUTION WIDTH 16.3 % (11.5-14.0); WHITE BLOOD COUNT 8.2 10^3/uL (4.0-10.5)
[2016-04-20] MEDS: NORMAL SALINE 1000 ML 1,000 ML IV PRN ×2 (04:59→17:46)
[2016-04-20 05:23] LABS: ALANINE AMINOTRANSFERASE 46 U/L (21-72); ALBUMIN 2.8 g/dL (3.5-5.0); ALKALINE PHOSPHATASE 32 U/L (38-126); ANION GAP 8 (5-19); ASPARTATE AMINO TRANSFERASE 30 U/L (17-59); BILIRUBIN,TOTAL 0.7 mg/dL (0.2-1.3); BLOOD UREA NITROGEN 28 mg/dL (7-20); CALCIUM 8.3 mg/dL (8.4-10.2); CARBON DIOXIDE 33 mmol/L (22-30); CHLORIDE 100 mmol/L (98-107); GLUCOSE 99 mg/dL (75-110); MAGNESIUM 2.3 mg/dL (1.6-2.3); POTASSIUM 3.8 mmol/L (3.6-5.0); SODIUM 140.6 mmol/L (137-145); TOTAL PROTEIN 5.1 g/dL (6.3-8.2); TRIGLYCERIDES 178 mg/dL (<150)
[2016-04-20 06:11] LABS: ARTERIAL BLOOD BASE EXCESS 7.3 mmol/L; ARTERIAL BLOOD O2 SATURATION 94.9 % (94-98)
[2016-04-20] MEDS: PREDNISONE 20 MG TABLET NG SCH (09:00)
[2016-04-20] MEDS: ASPIRIN 81 MG TABLET, CHEWABLE NG SCH (09:01)
[2016-04-20] MEDS: METFORMIN HCL 500 MG TABLET NG SCH (09:01)
[2016-04-20] MEDS: FUROSEMIDE INJ/PF 20 MG/2 ML SDV IV SCH ×2 (09:02→21:23)
[2016-04-20] MEDS: FAMOTIDINE INJ/PF 20 MG/2 ML SDV IV SCH ×2 (09:02→21:23)
[2016-04-20] MEDS: LOSARTAN POTASSIUM 50 MG TABLET NG SCH (09:06)
[2016-04-20] MEDS: VANCOMYCIN HCL 2,000 MG in DEXTROSE 5%-WATER 500 ML IV SCH (09:10)
[2016-04-20] MEDS: FLUTICASONE NASAL SPRAY 50 MCG/SPRY 120 SPRAY/16 GM NASL SCH (09:11)
--- NOTE | 2016-04-20 11:53 | PDOC PROGRESS REPORT ---
Subjective Progress Note for:: 04/20/16 Subjective:: Intubated and sedated Physical Exam Vital Signs: Temp Pulse Resp BP Pulse Ox 97.9 F 65 14 111/57 L 95 04/20/16 10:01 04/20/16 09:55 04/20/16 10:01 04/20/16 10:01 04/20/16 10:01 Intake & Output 04/19/16 04/20/16 04/21/16 06:59 06:59 06:59 Intake Total 3300 4620 Output Total 4330 5430 400 Balance -1030 -810 -400 Weight 148.7 kg 149 kg General appearance: PRESENT: disheveled, obese Head exam: PRESENT: atraumatic, normocephalic Eye exam: PRESENT: conjunctiva pale Mouth exam: PRESENT: neck supple, tongue midline, other - ET tube in place Neck exam: ABSENT: carotid bruit, JVD, lymphadenopathy, thyromegaly Respiratory exam: PRESENT: decreased breath sounds, prolonged expiratory phas, rales, rhonchi, symmetrical, unlabored Cardiovascular exam: PRESENT: RRR, +S1, +S2 Pulses: PRESENT: normal radial pulses GI/Abdominal exam: PRESENT: normal bowel sounds, soft. ABSENT: distended, guarding, mass, organolmegaly, rebound, tenderness Rectal exam: PRESENT: deferred Gentrourinary exam: PRESENT: indwelling catheter Extremities exam: PRESENT: +1 edema Skin exam: PRESENT: dry, warm Results Laboratory Results: 04/20/16 04:21 04/20/16 04:21 04/20/16 04/20/16 04/20/16 04:21 04:21 05:00 WBC 8.2 RBC 4.68 Hgb 13.8 Hct 43.4 MCV 93 MCH 29.6 MCHC 31.9 L RDW 16.3 H Plt Count 154 Carbonic Acid 1.40 H HCO3/H2CO3 Ratio 23:1 ABG pH 7.46 H ABG pCO2 46.5 H ABG pO2 70.6 L ABG HCO3 32.3 H ABG O2 Saturation 94.9 ABG Base Excess 7.3 FiO2 50% Sodium 140.6 Potassium 3.8 Chloride 100 Carbon Dioxide 33 H Anion Gap 8 BUN 28 H Creatinine 1.00 Est GFR ( Amer) > 60 Est GFR (Non-Af Amer) > 60 Glucose 99 Calcium 8.3 L Magnesium 2.3 Total Bilirubin 0.7 AST 30 ALT 46 Alkaline Phosphatase 32 L Total Protein 5.1 L Albumin 2.8 L Triglycerides 178 H Impressions: KUB X-Ray 04/16/16 00:00 IMPRESSION: Nasogastric tube tip and side port in the stomach Chest X-Ray 04/20/16 06:00 IMPRESSION: No change in bibasilar airspace disease. Endotracheal tube and nasogastric tube in good positioning Assessment & Plan - Diagnosis (1) Acute and chronic respiratory failure ([id number]) Qualifiers: Respiratory failure complication: hypoxia and hypercapnia Qualified Code(s): J96.21 - Acute and chronic respiratory failure with hypoxia Is this a current diagnosis for this admission?: YesPlan: Continues to require elevated FiO2 and PEEP decrease as tolerated and minute ventilation is also elevated (2) COPD (chronic obstructive pulmonary disease) Qualifiers: COPD type: COPD with acute exacerbation Qualified Code(s): J44.1 - Chronic obstructive pulmonary disease with (acute) exacerbation Is this a current diagnosis for this admission?: YesPlan: Continue current bronchodilator therapy (3) CHF (congestive heart failure) Qualifiers: Congestive heart failure type: unspecified congestive heart failure type Congestive heart failure chronicity: unspecified congestive heart failure chronicity Qualified Code(s): I50.9 - Heart failure, unspecified Is this a current diagnosis for this admission?: YesPlan: Diuretics as needed judicious use of fluids - Time Critical Time spent with patient: 25-34 minutes - 30 minutes
[2016-04-20 18:58] LABS: APPEARANCE,URINE CLEAR; BILIRUBIN,URINE NEGATIVE (NEGATIVE); GLUCOSE, URINE NEGATIVE (NEGATIVE); KETONES,URINE NEGATIVE (NEGATIVE); LEUKOCYTE ESTERASE,URINE NEGATIVE (NEGATIVE); NITRITE,URINE NEGATIVE (NEGATIVE); PROTEIN,URINE NEGATIVE (NEGATIVE); URINE SPECIFIC GRAVITY 1.016
--- NOTE | 2016-04-20 22:40 | PDOC PROGRESS REPORT ---
Subjective Progress Note for:: 04/20/16 Subjective:: Patient is sedated and intubated Physical Exam Vital Signs: Temp Pulse Resp BP Pulse Ox 98.4 F 79 14 130/65 H 89 L 04/20/16 22:07 04/20/16 20:01 04/20/16 22:07 04/20/16 22:07 04/20/16 22:07 Intake & Output 04/19/16 04/20/16 04/21/16 06:59 06:59 06:59 Intake Total 3300 4620 2097 Output Total 4330 8750 2004 Balance -1030 -810 92 Weight 148.7 kg 149 kg General appearance: PRESENT: no acute distress Eye exam: PRESENT: PERRLA Respiratory exam: PRESENT: decreased breath sounds Cardiovascular exam: PRESENT: +S1, +S2 GI/Abdominal exam: PRESENT: soft Results Laboratory Results: 04/20/16 04:21 04/20/16 04:21 04/20/16 04/20/16 04/20/16 04:21 04:21 05:00 WBC 8.2 RBC 4.68 Hgb 13.8 Hct 43.4 MCV 93 MCH 29.6 MCHC 31.9 L RDW 16.3 H Plt Count 154 Carbonic Acid 1.40 H HCO3/H2CO3 Ratio 23:1 ABG pH 7.46 H ABG pCO2 46.5 H ABG pO2 70.6 L ABG HCO3 32.3 H ABG O2 Saturation 94.9 ABG Base Excess 7.3 FiO2 50% Sodium 140.6 Potassium 3.8 Chloride 100 Carbon Dioxide 33 H Anion Gap 8 BUN 28 H Creatinine 1.00 Est GFR ( Amer) > 60 Est GFR (Non-Af Amer) > 60 Glucose 99 Calcium 8.3 L Magnesium 2.3 Total Bilirubin 0.7 AST 30 ALT 46 Alkaline Phosphatase 32 L Total Protein 5.1 L Albumin 2.8 L Triglycerides 178 H Urine Color Urine Appearance Urine pH Ur Specific [place] Urine Protein Urine Glucose (UA) Urine Ketones Urine Blood Urine Nitrite Ur Leukocyte Esterase Urine WBC (Auto) Urine RBC (Auto) Stool Occult Blood 04/20/16 04/20/16 18:20 18:20 WBC RBC Hgb Hct MCV MCH MCHC RDW Plt Count Carbonic Acid HCO3/H2CO3 Ratio ABG pH ABG pCO2 ABG pO2 ABG HCO3 ABG O2 Saturation ABG Base Excess FiO2 Sodium Potassium Chloride Carbon Dioxide Anion Gap BUN Creatinine Est GFR ( Amer) Est GFR (Non-Af Amer) Glucose Calcium Magnesium Total Bilirubin AST ALT Alkaline Phosphatase Total Protein Albumin Triglycerides Urine Color YELLOW Urine Appearance CLEAR Urine pH 6.0 Ur Specific [place] 1.016 Urine Protein NEGATIVE Urine Glucose (UA) NEGATIVE Urine Ketones NEGATIVE Urine Blood NEGATIVE Urine Nitrite NEGATIVE Ur Leukocyte Esterase NEGATIVE Urine WBC (Auto) 1 Urine RBC (Auto) 4 Stool Occult Blood NEGATIVE Impressions: KUB X-Ray 04/16/16 00:00 IMPRESSION: Nasogastric tube tip and side port in the stomach Chest X-Ray 04/20/16 06:00 IMPRESSION: No change in bibasilar airspace disease. Endotracheal tube and nasogastric tube in good positioning Assessment & Plan - Diagnosis (1) Acute and chronic respiratory failure ([id number]) Qualifiers: Respiratory failure complication: hypoxia and hypercapnia Qualified Code(s): J96.21 - Acute and chronic respiratory failure with hypoxia Is this a current diagnosis for this admission?: Yes (2) Type 2 diabetes mellitus Qualifiers: Diabetes mellitus complication status: with neurologic complications Diabetes mellitus complication detail: with polyneuropathy Diabetes mellitus retirement insulin use: with retirement use Qualified Code(s): E11.42 - Type 2 diabetes mellitus with diabetic polyneuropathy; Z79.4 - correction (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 insulin Is this a current diagnosis for this admission?: Yes (3) Morbid obesity with BMI of 40.0-44.9, adult Is this a current diagnosis for this admission?: Yes (4) Swelling of left lower extremity Is this a current diagnosis for this admission?: Yes (5) Tobacco abuse Is this a current diagnosis for this admission?: Yes
[2016-04-21] MEDS: PROPOFOL 100 ML IV PRN ×11 (00:30→23:18)
[2016-04-21] MEDS: IPRATROPIUM/ALBUTEROL 0.5-2.5 MG/3 ML AMPUL NEB SCH ×5 (02:37→21:50)
[2016-04-21] MEDS: NORMAL SALINE 1000 ML 1,000 ML IV PRN ×3 (02:49→22:30)
[2016-04-21 04:45] LABS: ABSOLUTE EOSINOPHILS # (AUTO) 0.1 10^3/uL (0.0-0.6); ABSOLUTE LYMPHOCYTES (AUTO) 1.2 10^3/uL (0.5-4.7); ABSOLUTE MONOCYTES (AUTO) 0.9 10^3/uL (0.1-1.4); BASOPHILS % (AUTO) 0.4 % (0-2); EOSINOPHILS % (AUTO) 0.9 % (0-6); HEMATOCRIT 43.2 % (37.9-51.0); HEMOGLOBIN 13.6 g/dL (13.5-17.0); HGB HCT DIFFERENCE -2.4; LYMPHOCYTES % (AUTO) 14.3 % (13-45); MEAN CORPUSCULAR HEMOGLOBIN 29.7 pg (27.0-33.4); MEAN CORPUSCULAR HGB CONC 31.4 g/dL (32.0-36.0); MEAN CORPUSCULAR VOLUME 95 fl (80-97); MONOCYTES % (AUTO) 10.6 % (3-13); RED BLOOD COUNT 4.57 10^6/uL (4.35-5.55); RED CELL DISTRIBUTION WIDTH 15.8 % (11.5-14.0); SEGMENTED NEUTROPHILS % (AUTO) 73.8 % (42-78); WHITE BLOOD COUNT 8.1 10^3/uL (4.0-10.5)
[2016-04-21 05:01] LABS: BLOOD UREA NITROGEN 31 mg/dL (7-20); CALCIUM 8.6 mg/dL (8.4-10.2); CREATININE RESULT 0.97 mg/dL (0.52-1.25); GLUCOSE 82 mg/dL (75-110)
[2016-04-21 05:02] LABS: ALANINE AMINOTRANSFERASE 63 U/L (21-72); ALBUMIN 3.1 g/dL (3.5-5.0); ALKALINE PHOSPHATASE 33 U/L (38-126); ANION GAP 9 (5-19); ASPARTATE AMINO TRANSFERASE 28 U/L (17-59); BILIRUBIN,TOTAL 0.9 mg/dL (0.2-1.3); CARBON DIOXIDE 31 mmol/L (22-30); CHLORIDE 102 mmol/L (98-107); MAGNESIUM 2.3 mg/dL (1.6-2.3); POTASSIUM 3.7 mmol/L (3.6-5.0); SODIUM 141.5 mmol/L (137-145); TOTAL PROTEIN 5.1 g/dL (6.3-8.2)
[2016-04-21 06:28] LABS: ARTERIAL BLOOD BASE EXCESS 6.8 mmol/L
[2016-04-21] MEDS: FUROSEMIDE INJ/PF 20 MG/2 ML SDV IV SCH ×2 (09:42→21:13)
[2016-04-21] MEDS: FAMOTIDINE INJ/PF 20 MG/2 ML SDV IV SCH ×2 (09:42→21:13)
[2016-04-21] MEDS: LOSARTAN POTASSIUM 50 MG TABLET NG SCH (09:43)
[2016-04-21] MEDS: METFORMIN HCL 500 MG TABLET NG SCH (09:43)
[2016-04-21] MEDS: PREDNISONE 20 MG TABLET NG SCH (09:43)
[2016-04-21] MEDS: ASPIRIN 81 MG TABLET, CHEWABLE NG SCH (09:43)
[2016-04-21] MEDS: FLUTICASONE NASAL SPRAY 50 MCG/SPRY 120 SPRAY/16 GM NASL SCH (09:44)
--- NOTE | 2016-04-21 10:04 | PDOC PROGRESS REPORT ---
Subjective Progress Note for:: 04/21/16 Subjective:: Remain intubated, sedated and vent supported. Patient did withdraw to painful stimuli. Fio2 decreased to current level of 45% with satisfactory saturation level. Tolerating enteral tube feeding with soft stool. No overt diarrhea. No reported fever. Physical Exam Vital Signs: Temp Pulse Resp BP Pulse Ox 98.6 F 79 16 108/59 L 95 04/21/16 06:00 04/21/16 08:23 04/21/16 08:23 04/21/16 05:46 04/21/16 08:23 Intake & Output 04/20/16 04/21/16 04/22/16 06:59 06:59 06:59 Intake Total 4620 4199 Output Total 5430 3040 125 Balance -810 1159 -125 Weight 149 kg 148.4 kg Physical Exam: ET and OG tubes in situ. General appearance: PRESENT: morbidly obese Head exam: PRESENT: atraumatic, normocephalic Eye exam: PRESENT: conjunctiva pink, EOMI, PERRLA. ABSENT: scleral icterus Mouth exam: PRESENT: moist Neck exam: PRESENT: full ROM. ABSENT: carotid bruit, JVD, lymphadenopathy, thyromegaly Respiratory exam: PRESENT: decreased breath sounds - at lung bases. ABSENT: accessory muscle use, chest wall tenderness, clear to auscultation coty, crackles , prolonged expiratory phas, rales, retraction, rhonchi, stridor, symmetrical, tachypnea, unlabored, wheezes, other Cardiovascular exam: PRESENT: RRR. ABSENT: diastolic murmur, rubs, systolic murmur GI/Abdominal exam: PRESENT: normal bowel sounds, soft Extremities exam: PRESENT: full ROM, pedal edema Neurological exam: PRESENT: altered - sedated on IV propofol Skin exam: PRESENT: dry, intact, warm. ABSENT: cyanosis, rash Results Laboratory Results: 04/21/16 03:55 04/21/16 03:55 04/20/16 04/20/16 04/21/16 18:20 18:20 03:55 WBC 8.1 RBC 4.57 Hgb 13.6 Hct 43.2 MCV 95 MCH 29.7 MCHC 31.4 L RDW 15.8 H Plt Count 159 Seg Neutrophils % 73.8 Lymphocytes % 14.3 Monocytes % 10.6 Eosinophils % 0.9 Basophils % 0.4 Absolute Neutrophils 6.0 Absolute Lymphocytes 1.2 Absolute Monocytes 0.9 Absolute Eosinophils 0.1 Absolute Basophils 0.0 Carbonic Acid HCO3/H2CO3 Ratio ABG pH ABG pCO2 ABG pO2 ABG HCO3 ABG O2 Saturation ABG Base Excess FiO2 Sodium Potassium Chloride Carbon Dioxide Anion Gap BUN Creatinine Est GFR ( Amer) Est GFR (Non-Af Amer) Glucose Calcium Magnesium Total Bilirubin AST ALT Alkaline Phosphatase Total Protein Albumin Urine Color YELLOW Urine Appearance CLEAR Urine pH 6.0 Ur Specific [place] 1.016 Urine Protein NEGATIVE Urine Glucose (UA) NEGATIVE Urine Ketones NEGATIVE Urine Blood NEGATIVE Urine Nitrite NEGATIVE Ur Leukocyte Esterase NEGATIVE Urine WBC (Auto) 1 Urine RBC (Auto) 4 Stool Occult Blood NEGATIVE 04/21/16 04/21/16 03:55 05:50 WBC RBC Hgb Hct MCV MCH MCHC RDW Plt Count Seg Neutrophils % Lymphocytes % Monocytes % Eosinophils % Basophils % Absolute Neutrophils Absolute Lymphocytes Absolute Monocytes Absolute Eosinophils Absolute Basophils Carbonic Acid 1.53 H HCO3/H2CO3 Ratio 21:1 ABG pH 7.43 ABG pCO2 50.7 H ABG pO2 65.1 L ABG HCO3 32.5 H ABG O2 Saturation 93.0 L ABG Base Excess 6.8 FiO2 45% Sodium 141.5 Potassium 3.7 Chloride 102 Carbon Dioxide 31 H Anion Gap 9 BUN 31 H Creatinine 0.97 Est GFR ( Amer) > 60 Est GFR (Non-Af Amer) > 60 Glucose 82 Calcium 8.6 Magnesium 2.3 Total Bilirubin 0.9 AST 28 ALT 63 Alkaline Phosphatase 33 L Total Protein 5.1 L Albumin 3.1 L Urine Color Urine Appearance Urine pH Ur Specific [place] Urine Protein Urine Glucose (UA) Urine Ketones Urine Blood Urine Nitrite Ur Leukocyte Esterase Urine WBC (Auto) Urine RBC (Auto) Stool Occult Blood Impressions: KUB X-Ray 04/16/16 00:00 IMPRESSION: Nasogastric tube tip and side port in the stomach Chest X-Ray 04/21/16 06:00 IMPRESSION: STABLE APPEARANCE OF THE CHEST. SUPPORT DEVICES UNCHANGED. Assessment & Plan - Diagnosis (1) Acute and chronic respiratory failure ([id number]) Qualifiers: Respiratory failure complication: hypoxia and hypercapnia Qualified Code(s): J96.21 - Acute and chronic respiratory failure with hypoxia Is this a current diagnosis for this admission?: Yes (2) COPD (chronic obstructive pulmonary disease) Qualifiers: COPD type: COPD with acute exacerbation Qualified Code(s): J44.1 - Chronic obstructive pulmonary disease with (acute) exacerbation Is this a current diagnosis for this admission?: Yes (3) Systolic congestive heart failure Qualifiers: Congestive heart failure chronicity: acute on chronic Qualified Code(s) : I50.23 - Acute on chronic systolic (congestive) heart failure (4) Type 2 diabetes mellitus Qualifiers: Diabetes mellitus complication status: with neurologic complications Diabetes mellitus complication detail: with polyneuropathy Diabetes mellitus nip wrapper insulin use: with alf use Qualified Code(s): E11.42 - Type 2 diabetes mellitus with diabetic polyneuropathy; 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.4 - dye 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 operator (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 insulin Is this a current diagnosis for this admission?: Yes (5) Morbid obesity with BMI of 40.0-44.9, adult Is this a current diagnosis for this admission?: Yes (6) Tobacco abuse Is this a current diagnosis for this admission?: Yes - Time Time Spent with patient: 25-34 minutes Anticipated discharge: SNF Within: Other - Inpatient Certification Medical Necessity: Need For Continuous Telemetry Monitoring, Need for IV Antibiotics, Risk of Complication if Not Cared For in Hospital Post Hospital Care: D/C Customizer Documentation - Plan Summary Plan Summary: See covering attending physician orders.
[2016-04-21] MEDS: ALPRAZOLAM 0.25 MG TABLET PO PRN ×2 (12:48→21:15)
--- NOTE | 2016-04-21 18:54 | PDOC PROGRESS REPORT ---
Subjective Progress Note for:: 04/21/16 Subjective:: Intubated and sedated Physical Exam Vital Signs: Temp Pulse Resp BP Pulse Ox 97.5 F 84 13 114/54 L 93 04/21/16 10:00 04/21/16 10:00 04/21/16 10:00 04/21/16 10:00 04/21/16 10:00 Intake & Output 04/20/16 04/21/16 04/22/16 06:59 06:59 06:59 Intake Total 4620 4199 Output Total 5430 3040 275 Balance -810 1159 -275 Weight 149 kg 148.4 kg General appearance: PRESENT: no acute distress, morbidly obese Head exam: PRESENT: atraumatic, normocephalic Eye exam: PRESENT: conjunctiva pale Mouth exam: PRESENT: neck supple, tongue midline, other Neck exam: ABSENT: carotid bruit, JVD, lymphadenopathy, thyromegaly Respiratory exam: PRESENT: accessory muscle use, decreased breath sounds, prolonged expiratory phas, rales, rhonchi, symmetrical, unlabored Cardiovascular exam: PRESENT: RRR, +S1, +S2 Pulses: PRESENT: normal radial pulses GI/Abdominal exam: PRESENT: normal bowel sounds, soft. ABSENT: distended, guarding, mass, organolmegaly, rebound, tenderness Rectal exam: PRESENT: deferred Gentrourinary exam: PRESENT: indwelling catheter Skin exam: PRESENT: dry, warm Results Laboratory Results: 04/21/16 03:55 04/21/16 03:55 04/20/16 04/20/16 04/21/16 18:20 18:20 03:55 WBC 8.1 RBC 4.57 Hgb 13.6 Hct 43.2 MCV 95 MCH 29.7 MCHC 31.4 L RDW 15.8 H Plt Count 159 Seg Neutrophils % 73.8 Lymphocytes % 14.3 Monocytes % 10.6 Eosinophils % 0.9 Basophils % 0.4 Absolute Neutrophils 6.0 Absolute Lymphocytes 1.2 Absolute Monocytes 0.9 Absolute Eosinophils 0.1 Absolute Basophils 0.0 Carbonic Acid HCO3/H2CO3 Ratio ABG pH ABG pCO2 ABG pO2 ABG HCO3 ABG O2 Saturation ABG Base Excess FiO2 Sodium Potassium Chloride Carbon Dioxide Anion Gap BUN Creatinine Est GFR ( Amer) Est GFR (Non-Af Amer) Glucose Calcium Magnesium Total Bilirubin AST ALT Alkaline Phosphatase Total Protein Albumin Urine Color YELLOW Urine Appearance CLEAR Urine pH 6.0 Ur Specific [place] 1.016 Urine Protein NEGATIVE Urine Glucose (UA) NEGATIVE Urine Ketones NEGATIVE Urine Blood NEGATIVE Urine Nitrite NEGATIVE Ur Leukocyte Esterase NEGATIVE Urine WBC (Auto) 1 Urine RBC (Auto) 4 Stool Occult Blood NEGATIVE 04/21/16 04/21/16 03:55 05:50 WBC RBC Hgb Hct MCV MCH MCHC RDW Plt Count Seg Neutrophils % Lymphocytes % Monocytes % Eosinophils % Basophils % Absolute Neutrophils Absolute Lymphocytes Absolute Monocytes Absolute Eosinophils Absolute Basophils Carbonic Acid 1.53 H HCO3/H2CO3 Ratio 21:1 ABG pH 7.43 ABG pCO2 50.7 H ABG pO2 65.1 L ABG HCO3 32.5 H ABG O2 Saturation 93.0 L ABG Base Excess 6.8 FiO2 45% Sodium 141.5 Potassium 3.7 Chloride 102 Carbon Dioxide 31 H Anion Gap 9 BUN 31 H Creatinine 0.97 Est GFR ( Amer) > 60 Est GFR (Non-Af Amer) > 60 Glucose 82 Calcium 8.6 Magnesium 2.3 Total Bilirubin 0.9 AST 28 ALT 63 Alkaline Phosphatase 33 L Total Protein 5.1 L Albumin 3.1 L Urine Color Urine Appearance Urine pH Ur Specific [place] Urine Protein Urine Glucose (UA) Urine Ketones Urine Blood Urine Nitrite Ur Leukocyte Esterase Urine WBC (Auto) Urine RBC (Auto) Stool Occult Blood Impressions: KUB X-Ray 04/16/16 00:00 IMPRESSION: Nasogastric tube tip and side port in the stomach Chest X-Ray 04/21/16 06:00 IMPRESSION: STABLE APPEARANCE OF THE CHEST. SUPPORT DEVICES UNCHANGED. Assessment & Plan - Diagnosis (1) Acute and chronic respiratory failure ([id number]) Qualifiers: Respiratory failure complication: hypoxia and hypercapnia Qualified Code(s): J96.21 - Acute and chronic respiratory failure with hypoxia Is this a current diagnosis for this admission?: YesPlan: Continues to require elevated FiO2 and PEEP decrease as tolerated and minute ventilation is also elevated (2) COPD (chronic obstructive pulmonary disease) Qualifiers: COPD type: COPD with acute exacerbation Qualified Code(s): J44.1 - Chronic obstructive pulmonary disease with (acute) exacerbation Is this a current diagnosis for this admission?: YesPlan: Continue current bronchodilator therapy (3) CHF (congestive heart failure) Qualifiers: Congestive heart failure type: unspecified congestive heart failure type Congestive heart failure chronicity: unspecified congestive heart failure chronicity Qualified Code(s): I50.9 - Heart failure, unspecified Is this a current diagnosis for this admission?: Yes - Time Critical Time spent with patient: 25-34 minutes - 30 min
[2016-04-22] MEDS: PROPOFOL 100 ML IV PRN ×9 (01:49→22:52)
[2016-04-22] MEDS: IPRATROPIUM/ALBUTEROL 0.5-2.5 MG/3 ML AMPUL NEB SCH ×4 (02:41→19:35)
[2016-04-22 05:05] LABS: ABSOLUTE BASOPHILS # (AUTO) 0.2 10^3/uL (0.0-0.2); ABSOLUTE EOSINOPHILS # (AUTO) 0.1 10^3/uL (0.0-0.6); ABSOLUTE LYMPHOCYTES (AUTO) 0.9 10^3/uL (0.5-4.7); ABSOLUTE MONOCYTES (AUTO) 0.8 10^3/uL (0.1-1.4); ABSOLUTE NEUT (AUTO) 5.5 10^3/uL (1.7-8.2); HEMATOCRIT 42.5 % (37.9-51.0); HEMOGLOBIN 13.4 g/dL (13.5-17.0); HGB HCT DIFFERENCE -2.3; LYMPHOCYTES % (AUTO) 12.2 % (13-45); MEAN CORPUSCULAR HGB CONC 31.5 g/dL (32.0-36.0); MEAN CORPUSCULAR VOLUME 95 fl (80-97); MONOCYTES % (AUTO) 11.1 % (3-13); RED BLOOD COUNT 4.47 10^6/uL (4.35-5.55); RED CELL DISTRIBUTION WIDTH 15.9 % (11.5-14.0); SEGMENTED NEUTROPHILS % (AUTO) 73.7 % (42-78); WHITE BLOOD COUNT 7.5 10^3/uL (4.0-10.5)
[2016-04-22 05:06] LABS: ARTERIAL BLOOD BASE EXCESS 5.8 mmol/L; ARTERIAL BLOOD O2 SATURATION 95.4 % (94-98)
[2016-04-22 05:22] LABS: ANION GAP 8 (5-19); BLOOD UREA NITROGEN 34 mg/dL (7-20); CALCIUM 8.7 mg/dL (8.4-10.2); CARBON DIOXIDE 31 mmol/L (22-30); CHLORIDE 104 mmol/L (98-107); CREATININE RESULT 0.95 mg/dL (0.52-1.25); GLUCOSE 87 mg/dL (75-110); MAGNESIUM 2.3 mg/dL (1.6-2.3); POTASSIUM 3.8 mmol/L (3.6-5.0); SODIUM 143.3 mmol/L (137-145)
[2016-04-22] MEDS: NORMAL SALINE 1000 ML 1,000 ML IV PRN ×2 (08:22→17:39)
[2016-04-22] MEDS: PREDNISONE 20 MG TABLET NG SCH (09:35)
[2016-04-22] MEDS: METFORMIN HCL 500 MG TABLET NG SCH (09:35)
[2016-04-22] MEDS: LOSARTAN POTASSIUM 50 MG TABLET NG SCH (09:36)
[2016-04-22] MEDS: ASPIRIN 81 MG TABLET, CHEWABLE NG SCH (09:36)
[2016-04-22] MEDS: FUROSEMIDE INJ/PF 20 MG/2 ML SDV IV SCH ×2 (09:36→22:13)
[2016-04-22] MEDS: ALPRAZOLAM 0.25 MG TABLET PO PRN (09:36)
[2016-04-22] MEDS: FAMOTIDINE INJ/PF 20 MG/2 ML SDV IV SCH ×2 (09:36→22:13)
[2016-04-22] MEDS: FLUTICASONE NASAL SPRAY 50 MCG/SPRY 120 SPRAY/16 GM NASL SCH (09:37)
[2016-04-22] MEDS ORDERED: RISPERIDONE 1 MG TABLET PO ONE (11:30)
--- NOTE | 2016-04-22 17:51 | PDOC PROGRESS REPORT ---
Subjective Progress Note for:: 04/22/16 Subjective:: Remain intubated, sedated and vent supported. Patient did withdraw to painful stimuli. There is need for Fio2 increased to 50% since last clinical evaluation with satisfactory saturation level. Tolerating enteral tube feeding. No definite diarrhea. There is low grade fever. Physical Exam Vital Signs: Temp Pulse Resp BP Pulse Ox 99.9 F 84 17 114/56 L 93 04/22/16 16:00 04/22/16 15:54 04/22/16 16:00 04/22/16 15:54 04/22/16 16:26 Intake & Output 04/21/16 04/22/16 04/23/16 06:59 06:59 06:59 Intake Total 4199 4053 100 Output Total 3040 3725 1875 Balance 1159 328 -1775 Weight 148.4 kg 147.5 kg Physical Exam: ET and OG tubes are in situ. Head exam: PRESENT: atraumatic, normocephalic Eye exam: PRESENT: conjunctiva pink, EOMI, PERRLA Mouth exam: PRESENT: moist Respiratory exam: PRESENT: decreased breath sounds - at lung bases. ABSENT: accessory muscle use, chest wall tenderness, clear to auscultation coty, crackles , prolonged expiratory phas, rales, retraction, rhonchi, stridor, symmetrical, tachypnea, unlabored, wheezes, other Cardiovascular exam: PRESENT: RRR. ABSENT: diastolic murmur, rubs, systolic murmur GI/Abdominal exam: PRESENT: normal bowel sounds, soft. ABSENT: distended, guarding, mass, organolmegaly, rebound, tenderness Extremities exam: PRESENT: pedal edema - minimal Neurological exam: PRESENT: altered - sedated on IV propofol Skin exam: PRESENT: dry, intact, warm. ABSENT: cyanosis, rash Results Laboratory Results: 04/22/16 04:16 04/22/16 04:16 04/22/16 04/22/16 04/22/16 04:16 04:16 04:57 WBC 7.5 RBC 4.47 Hgb 13.4 L Hct 42.5 MCV 95 MCH 30.0 MCHC 31.5 L RDW 15.9 H Plt Count 153 Seg Neutrophils % 73.7 Lymphocytes % 12.2 L Monocytes % 11.1 Eosinophils % 1.0 Basophils % 2.0 Absolute Neutrophils 5.5 Absolute Lymphocytes 0.9 Absolute Monocytes 0.8 Absolute Eosinophils 0.1 Absolute Basophils 0.2 Carbonic Acid 1.54 H HCO3/H2CO3 Ratio 20:1 ABG pH 7.41 ABG pCO2 51.1 H ABG pO2 77.1 L ABG HCO3 31.7 H ABG O2 Saturation 95.4 ABG Base Excess 5.8 FiO2 50% Sodium 143.3 Potassium 3.8 Chloride 104 Carbon Dioxide 31 H Anion Gap 8 BUN 34 H Creatinine 0.95 Est GFR ( Amer) > 60 Est GFR (Non-Af Amer) > 60 Glucose 87 Calcium 8.7 Magnesium 2.3 Impressions: KUB X-Ray 04/16/16 00:00 IMPRESSION: Nasogastric tube tip and side port in the stomach Chest X-Ray 04/22/16 06:00 IMPRESSION: Support lines and tubes remain in place. There is persistent bibasilar airspace disease most consistent with atelectasis and small effusions. Assessment & Plan - Diagnosis (1) Acute and chronic respiratory failure ([id number]) Qualifiers: Respiratory failure complication: hypoxia and hypercapnia Qualified Code(s): J96.21 - Acute and chronic respiratory failure with hypoxia Is this a current diagnosis for this admission?: YesPlan: Continue current medication management and vent setting adjustment as per Dr Escalona. (2) COPD (chronic obstructive pulmonary disease) Qualifiers: COPD type: COPD with acute exacerbation Qualified Code(s): J44.1 - Chronic obstructive pulmonary disease with (acute) exacerbation Is this a current diagnosis for this admission?: YesPlan: Continue current medication management. Ventilator support setting as per capsule maker, Dr Escalona. Obtain tracheal aspirate for gram stain and culture in view of his low grade fever and increase need for oxygen supplementation and chest X ray findings of bibasilar air space disease process. I will hold off on starting antibiotic coverage and monitor his temperature, bacteriology lab result and CBC indices. (3) Systolic congestive heart failure Qualifiers: Congestive heart failure chronicity: acute on chronic Qualified Code(s) : I50.23 - Acute on chronic systolic (congestive) heart failure Plan: Continue current medication management (4) Type 2 diabetes mellitus Qualifiers: Diabetes mellitus complication status: with neurologic complications Diabetes mellitus complication detail: with polyneuropathy Diabetes mellitus intermediate project manager insulin use: with intermediate project manager use Qualified Code(s): E11.42 - Type 2 diabetes mellitus with diabetic polyneuropathy; Z79.4 - intermediate project manager (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 insulin Is this a current diagnosis for this admission?: YesPlan: Continue current medication management (5) Morbid obesity with BMI of 40.0-44.9, adult Is this a current diagnosis for this admission?: Yes (6) Tobacco abuse Is this a current diagnosis for this admission?: Yes - Time Time Spent with patient: 25-34 minutes Medications reviewed and adjusted accordingly: Yes Anticipated discharge: Other Within: Other - Inpatient Certification Medical Necessity: Need Close Monitoring Due to Risk of Patient Decompensation, Need For IV Fluids, Need for IV Antibiotics, Risk of Complication if Not Cared For in Hospital Post Hospital Care: D/C Field Support Technician Documentation - Plan Summary Plan Summary: see covering physician orders.
--- NOTE | 2016-04-22 18:05 | PDOC PROGRESS REPORT ---
Subjective Progress Note for:: 04/22/16 Subjective:: Intubated and sedated Physical Exam Vital Signs: Temp Pulse Resp BP Pulse Ox 99.0 F 78 16 121/59 L 94 04/22/16 08:00 04/22/16 10:00 04/22/16 10:00 04/22/16 10:00 04/22/16 10:00 Intake & Output 04/21/16 04/22/16 04/23/16 06:59 06:59 06:59 Intake Total 4199 4053 Output Total 3040 3725 375 Balance 1159 328 -375 Weight 148.4 kg 147.5 kg General appearance: PRESENT: disheveled, obese Head exam: PRESENT: atraumatic, normocephalic Mouth exam: PRESENT: neck supple, tongue midline, other - ET tube is intact Respiratory exam: PRESENT: decreased breath sounds, prolonged expiratory phas, rales, symmetrical, unlabored Cardiovascular exam: PRESENT: irregular rhythm Pulses: PRESENT: normal radial pulses GI/Abdominal exam: PRESENT: normal bowel sounds, soft. ABSENT: distended, guarding, mass, organolmegaly, rebound, tenderness Rectal exam: PRESENT: deferred Gentrourinary exam: PRESENT: indwelling catheter Skin exam: PRESENT: dry, warm Results Laboratory Results: 04/22/16 04:16 04/22/16 04:16 04/22/16 04/22/16 04/22/16 04:16 04:16 04:57 WBC 7.5 RBC 4.47 Hgb 13.4 L Hct 42.5 MCV 95 MCH 30.0 MCHC 31.5 L RDW 15.9 H Plt Count 153 Seg Neutrophils % 73.7 Lymphocytes % 12.2 L Monocytes % 11.1 Eosinophils % 1.0 Basophils % 2.0 Absolute Neutrophils 5.5 Absolute Lymphocytes 0.9 Absolute Monocytes 0.8 Absolute Eosinophils 0.1 Absolute Basophils 0.2 Carbonic Acid 1.54 H HCO3/H2CO3 Ratio 20:1 ABG pH 7.41 ABG pCO2 51.1 H ABG pO2 77.1 L ABG HCO3 31.7 H ABG O2 Saturation 95.4 ABG Base Excess 5.8 FiO2 50% Sodium 143.3 Potassium 3.8 Chloride 104 Carbon Dioxide 31 H Anion Gap 8 BUN 34 H Creatinine 0.95 Est GFR ( Amer) > 60 Est GFR (Non-Af Amer) > 60 Glucose 87 Calcium 8.7 Magnesium 2.3 Impressions: KUB X-Ray 04/16/16 00:00 IMPRESSION: Nasogastric tube tip and side port in the stomach Chest X-Ray 04/22/16 06:00 IMPRESSION: Support lines and tubes remain in place. There is persistent bibasilar airspace disease most consistent with atelectasis and small effusions. Assessment & Plan - Diagnosis (1) Acute and chronic respiratory failure ([id number]) Qualifiers: Respiratory failure complication: hypoxia and hypercapnia Qualified Code(s): J96.21 - Acute and chronic respiratory failure with hypoxia Is this a current diagnosis for this admission?: YesPlan: Continues to require elevated FiO2 and PEEP decrease as tolerated and minute ventilation is also elevated (2) COPD (chronic obstructive pulmonary disease) Qualifiers: COPD type: COPD with acute exacerbation Qualified Code(s): J44.1 - Chronic obstructive pulmonary disease with (acute) exacerbation Is this a current diagnosis for this admission?: YesPlan: Continue current bronchodilator therapy (3) CHF (congestive heart failure) Qualifiers: Congestive heart failure type: unspecified congestive heart failure type Congestive heart failure chronicity: unspecified congestive heart failure chronicity Qualified Code(s): I50.9 - Heart failure, unspecified Is this a current diagnosis for this admission?: YesPlan: Diuretics as needed judicious use of fluids - Time Critical Time spent with patient: 25-34 minutes - 30 min
[2016-04-22] MEDS ORDERED: RISPERIDONE 1 MG TABLET PO SCH (22:00)
[2016-04-22] MEDS: RISPERIDONE 1 MG TABLET PO SCH (22:12)
[2016-04-23] MEDS: IPRATROPIUM/ALBUTEROL 0.5-2.5 MG/3 ML AMPUL NEB SCH ×4 (01:54→20:50)
[2016-04-23] MEDS: PROPOFOL 100 ML IV PRN ×9 (03:24→23:49)
[2016-04-23] MEDS: NORMAL SALINE 1000 ML 1,000 ML IV PRN ×3 (03:25→22:41)
[2016-04-23 04:43] LABS: HEMATOCRIT 44.2 % (37.9-51.0); HEMOGLOBIN 14.4 g/dL (13.5-17.0); MEAN CORPUSCULAR HEMOGLOBIN 30.6 pg (27.0-33.4); MEAN CORPUSCULAR HGB CONC 32.5 g/dL (32.0-36.0); MEAN CORPUSCULAR VOLUME 94 fl (80-97); RED BLOOD COUNT 4.69 10^6/uL (4.35-5.55); RED CELL DISTRIBUTION WIDTH 15.9 % (11.5-14.0); WHITE BLOOD COUNT 8.5 10^3/uL (4.0-10.5)
[2016-04-23] MEDS: PREDNISONE 20 MG TABLET NG SCH (09:10)
[2016-04-23] MEDS: FUROSEMIDE INJ/PF 20 MG/2 ML SDV IV SCH ×2 (09:10→21:08)
[2016-04-23] MEDS: ASPIRIN 81 MG TABLET, CHEWABLE NG SCH (09:10)
[2016-04-23] MEDS: LOSARTAN POTASSIUM 50 MG TABLET NG SCH (09:11)
[2016-04-23] MEDS: RISPERIDONE 1 MG TABLET PO SCH ×2 (09:11→21:08)
[2016-04-23] MEDS: METFORMIN HCL 500 MG TABLET NG SCH (09:11)
[2016-04-23] MEDS: FAMOTIDINE INJ/PF 20 MG/2 ML SDV IV SCH ×2 (09:12→21:08)
[2016-04-23] MEDS: FLUTICASONE NASAL SPRAY 50 MCG/SPRY 120 SPRAY/16 GM NASL SCH (09:12)
[2016-04-23 09:18] LABS: ARTERIAL BLOOD BASE EXCESS 5.9 mmol/L; ARTERIAL BLOOD O2 SATURATION 95.3 % (94-98)
--- NOTE | 2016-04-23 11:41 | PDOC PROGRESS REPORT ---
Subjective Progress Note for:: 04/23/16 Subjective:: Intubated and sedated Physical Exam Vital Signs: Temp Pulse Resp BP Pulse Ox 97.0 F 81 17 120/59 L 94 04/23/16 07:47 04/23/16 09:20 04/23/16 09:20 04/23/16 09:20 04/23/16 09:20 Intake & Output 04/22/16 04/23/16 04/24/16 06:59 06:59 06:59 Intake Total 4053 3958 Output Total 3725 3000 160 Balance 328 958 -160 Weight 147.5 kg 148.5 kg General appearance: PRESENT: no acute distress, disheveled, morbidly obese Head exam: PRESENT: atraumatic, normocephalic Eye exam: PRESENT: conjunctiva pale Mouth exam: PRESENT: neck supple, tongue midline, other - ET tube Neck exam: ABSENT: carotid bruit, JVD, lymphadenopathy, thyromegaly Respiratory exam: PRESENT: decreased breath sounds, prolonged expiratory phas, rales, rhonchi, symmetrical, unlabored, wheezes Cardiovascular exam: PRESENT: irregular rhythm Pulses: PRESENT: normal radial pulses GI/Abdominal exam: PRESENT: normal bowel sounds, soft. ABSENT: distended, guarding, mass, organolmegaly, rebound, tenderness Rectal exam: PRESENT: deferred Gentrourinary exam: PRESENT: indwelling catheter Musculoskeletal exam: PRESENT: normal inspection Skin exam: PRESENT: dry, warm Results Laboratory Results: 04/23/16 04:25 04/22/16 04:16 04/23/16 04/23/16 04/23/16 04:25 04:25 09:02 WBC 8.5 RBC 4.69 Hgb 14.4 Hct 44.2 MCV 94 MCH 30.6 MCHC 32.5 RDW 15.9 H Plt Count 133 L Carbonic Acid 1.44 H HCO3/H2CO3 Ratio 21:1 ABG pH 7.43 ABG pCO2 47.8 H ABG pO2 75.0 L ABG HCO3 31.2 H ABG O2 Saturation 95.3 ABG Base Excess 5.9 FiO2 50% Triglycerides 183 H Impressions: KUB X-Ray 04/16/16 00:00 IMPRESSION: Nasogastric tube tip and side port in the stomach Chest X-Ray 04/22/16 06:00 IMPRESSION: Support lines and tubes remain in place. There is persistent bibasilar airspace disease most consistent with atelectasis and small effusions. Assessment & Plan - Diagnosis (1) Acute and chronic respiratory failure ([id number]) Qualifiers: Respiratory failure complication: hypoxia and hypercapnia Qualified Code(s): J96.21 - Acute and chronic respiratory failure with hypoxia Is this a current diagnosis for this admission?: YesPlan: Continues to require elevated FiO2 and PEEP episodes of desaturation requiring increase in FiO2 (2) COPD (chronic obstructive pulmonary disease) Qualifiers: COPD type: COPD with acute exacerbation Qualified Code(s): J44.1 - Chronic obstructive pulmonary disease with (acute) exacerbation Is this a current diagnosis for this admission?: YesPlan: Continue current bronchodilator therapy (3) CHF (congestive heart failure) Qualifiers: Congestive heart failure type: unspecified congestive heart failure type Congestive heart failure chronicity: unspecified congestive heart failure chronicity Qualified Code(s): I50.9 - Heart failure, unspecified Is this a current diagnosis for this admission?: YesPlan: Diuretics as needed judicious use of fluids - Time Critical Time spent with patient: 25-34 minutes - 30 minutes
[2016-04-23 11:46] LABS: ALANINE AMINOTRANSFERASE 61 U/L (21-72); ALBUMIN 2.8 g/dL (3.5-5.0); ALKALINE PHOSPHATASE 32 U/L (38-126); ANION GAP 7 (5-19); ASPARTATE AMINO TRANSFERASE 26 U/L (17-59); BILIRUBIN,TOTAL 0.8 mg/dL (0.2-1.3); BLOOD UREA NITROGEN 31 mg/dL (7-20); CALCIUM 8.6 mg/dL (8.4-10.2); CARBON DIOXIDE 33 mmol/L (22-30); CHLORIDE 103 mmol/L (98-107); CREATININE RESULT 0.93 mg/dL (0.52-1.25); GLUCOSE 99 mg/dL (75-110); POTASSIUM 3.6 mmol/L (3.6-5.0)
[2016-04-23] MEDS ORDERED: ENOXAPARIN SODIUM INJ 40 MG/0.4 ML DISP.SYRIN SUBCUT ONE (12:00)
[2016-04-24] MEDS: PROPOFOL 100 ML IV PRN ×8 (01:45→21:06)
[2016-04-24] MEDS: IPRATROPIUM/ALBUTEROL 0.5-2.5 MG/3 ML AMPUL NEB SCH ×4 (02:28→20:53)
[2016-04-24 04:16] LABS: ABSOLUTE EOSINOPHILS # (AUTO) 0.1 10^3/uL (0.0-0.6); ABSOLUTE LYMPHOCYTES (AUTO) 1.2 10^3/uL (0.5-4.7); ABSOLUTE MONOCYTES (AUTO) 0.7 10^3/uL (0.1-1.4); ABSOLUTE NEUT (AUTO) 5.7 10^3/uL (1.7-8.2); BASOPHILS % (AUTO) 0.3 % (0-2); HEMOGLOBIN 13.5 g/dL (13.5-17.0); HGB HCT DIFFERENCE -2.5; MEAN CORPUSCULAR HEMOGLOBIN 29.9 pg (27.0-33.4); MEAN CORPUSCULAR HGB CONC 31.4 g/dL (32.0-36.0); MEAN CORPUSCULAR VOLUME 95 fl (80-97); MONOCYTES % (AUTO) 9.6 % (3-13); RED BLOOD COUNT 4.51 10^6/uL (4.35-5.55); RED CELL DISTRIBUTION WIDTH 15.8 % (11.5-14.0); SEGMENTED NEUTROPHILS % (AUTO) 74.1 % (42-78); WHITE BLOOD COUNT 7.7 10^3/uL (4.0-10.5)
[2016-04-24 04:28] LABS: ALANINE AMINOTRANSFERASE 60 U/L (21-72); ALBUMIN 2.8 g/dL (3.5-5.0); ALKALINE PHOSPHATASE 32 U/L (38-126); ANION GAP 8 (5-19); ASPARTATE AMINO TRANSFERASE 23 U/L (17-59); BILIRUBIN,TOTAL 0.7 mg/dL (0.2-1.3); BLOOD UREA NITROGEN 29 mg/dL (7-20); CALCIUM 8.8 mg/dL (8.4-10.2); CARBON DIOXIDE 32 mmol/L (22-30); CHLORIDE 104 mmol/L (98-107); GLUCOSE 82 mg/dL (75-110); MAGNESIUM 2.1 mg/dL (1.6-2.3); POTASSIUM 3.7 mmol/L (3.6-5.0); SODIUM 144.4 mmol/L (137-145)
[2016-04-24 04:51] LABS: ARTERIAL BLOOD BASE EXCESS 7.7 mmol/L; ARTERIAL BLOOD O2 SATURATION 95.3 % (94-98)
[2016-04-24] MEDS: METFORMIN HCL 500 MG TABLET NG SCH (08:02)
[2016-04-24] MEDS: ENOXAPARIN SODIUM INJ 40 MG/0.4 ML DISP.SYRIN SUBCUT SCH (08:02)
[2016-04-24] MEDS: ALPRAZOLAM 0.25 MG TABLET PO PRN (08:02)
[2016-04-24] MEDS ORDERED: PHARMACY COMMUNICATION ORDER MC SCH (09:15)
[2016-04-24] MEDS: FUROSEMIDE INJ/PF 20 MG/2 ML SDV IV SCH ×2 (09:32→21:06)
[2016-04-24] MEDS: FAMOTIDINE INJ/PF 20 MG/2 ML SDV IV SCH ×2 (09:32→21:06)
[2016-04-24] MEDS: RISPERIDONE 1 MG TABLET PO SCH ×2 (09:32→21:05)
[2016-04-24] MEDS: PREDNISONE 20 MG TABLET NG SCH (09:32)
[2016-04-24] MEDS: FLUTICASONE NASAL SPRAY 50 MCG/SPRY 120 SPRAY/16 GM NASL SCH (09:33)
[2016-04-24] MEDS: LOSARTAN POTASSIUM 50 MG TABLET NG SCH (09:33)
[2016-04-24] MEDS: ASPIRIN 81 MG TABLET, CHEWABLE NG SCH (09:33)
[2016-04-24] MEDS: IBUPROFEN 800 MG in NORMAL SALINE 250 ML IV SCH ×2 (11:26→17:06)
[2016-04-24] MEDS: NORMAL SALINE 1000 ML 1,000 ML IV PRN (18:05)
--- NOTE | 2016-04-24 19:37 | PDOC PROGRESS REPORT ---
Subjective Progress Note for:: 04/23/16 Subjective:: Patient continues to require mechanical ventilation, sedated Physical Exam Vital Signs: Temp Pulse Resp BP Pulse Ox 99.0 F 80 17 119/60 93 04/23/16 16:00 04/23/16 16:00 04/23/16 16:00 04/23/16 16:00 04/23/16 16:00 Intake & Output 04/22/16 04/23/16 04/24/16 06:59 06:59 06:59 Intake Total 4053 3958 Output Total 3725 3000 2585 Balance 328 958 -2585 Weight 147.5 kg 148.5 kg General appearance: PRESENT: no acute distress Eye exam: PRESENT: PERRLA Respiratory exam: PRESENT: clear to auscultation coty Cardiovascular exam: PRESENT: +S1, +S2 Results Laboratory Results: 04/23/16 04:25 04/23/16 11:02 04/23/16 04/23/16 04/23/16 04:25 04:25 09:02 WBC 8.5 RBC 4.69 Hgb 14.4 Hct 44.2 MCV 94 MCH 30.6 MCHC 32.5 RDW 15.9 H Plt Count 133 L Carbonic Acid 1.44 H HCO3/H2CO3 Ratio 21:1 ABG pH 7.43 ABG pCO2 47.8 H ABG pO2 75.0 L ABG HCO3 31.2 H ABG O2 Saturation 95.3 ABG Base Excess 5.9 FiO2 50% Sodium Potassium Chloride Carbon Dioxide Anion Gap BUN Creatinine Est GFR ( Amer) Est GFR (Non-Af Amer) Glucose Calcium Total Bilirubin AST ALT Alkaline Phosphatase Total Protein Albumin Triglycerides 183 H 04/23/16 11:02 WBC RBC Hgb Hct MCV MCH MCHC RDW Plt Count Carbonic Acid HCO3/H2CO3 Ratio ABG pH ABG pCO2 ABG pO2 ABG HCO3 ABG O2 Saturation ABG Base Excess FiO2 Sodium 143.0 Potassium 3.6 Chloride 103 Carbon Dioxide 33 H Anion Gap 7 BUN 31 H Creatinine 0.93 Est GFR ( Amer) > 60 Est GFR (Non-Af Amer) > 60 Glucose 99 Calcium 8.6 Total Bilirubin 0.8 AST 26 ALT 61 Alkaline Phosphatase 32 L Total Protein 5.0 L Albumin 2.8 L Triglycerides Impressions: KUB X-Ray 04/16/16 00:00 IMPRESSION: Nasogastric tube tip and side port in the stomach Chest X-Ray 04/23/16 00:00 IMPRESSION: Asymmetric edema or pneumonia. No significant change. Assessment & Plan - Diagnosis (1) Acute and chronic respiratory failure ([id number]) Qualifiers: Respiratory failure complication: hypoxia and hypercapnia Qualified Code(s): J96.21 - Acute and chronic respiratory failure with hypoxia Is this a current diagnosis for this admission?: Yes (2) Type 2 diabetes mellitus Qualifiers: Diabetes mellitus complication status: with neurologic complications Diabetes mellitus complication detail: with polyneuropathy Diabetes mellitus termite exterminator helper insulin use: with termite exterminator helper use Qualified Code(s): E11.42 - Type 2 diabetes mellitus with diabetic polyneuropathy; Z79.4 - FDC (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 insulin Is this a current diagnosis for this admission?: Yes (3) Morbid obesity with BMI of 40.0-44.9, adult Is this a current diagnosis for this admission?: Yes (4) Swelling of left lower extremity Is this a current diagnosis for this admission?: Yes (5) Tobacco abuse Is this a current diagnosis for this admission?: Yes
[2016-04-25] MEDS: PROPOFOL 100 ML IV PRN ×3 (00:37→08:25)
[2016-04-25] MEDS: IPRATROPIUM/ALBUTEROL 0.5-2.5 MG/3 ML AMPUL NEB SCH ×4 (02:26→20:01)
[2016-04-25] MEDS: NORMAL SALINE 1000 ML 1,000 ML IV PRN ×2 (04:43→16:27)
[2016-04-25 06:15] LABS: ARTERIAL BLOOD BASE EXCESS 1.9 mmol/L; ARTERIAL BLOOD O2 SATURATION 95.1 % (94-98)
[2016-04-25 06:21] LABS: APPEARANCE,URINE CLEAR; BILIRUBIN,URINE NEGATIVE (NEGATIVE); GLUCOSE, URINE NEGATIVE (NEGATIVE); KETONES,URINE NEGATIVE (NEGATIVE); LEUKOCYTE ESTERASE,URINE NEGATIVE (NEGATIVE); NITRITE,URINE NEGATIVE (NEGATIVE); PROTEIN,URINE NEGATIVE (NEGATIVE); URINE SPECIFIC GRAVITY 1.023; UROBILINOGEN,URINE NEGATIVE mg/dL (<2.0)
[2016-04-25 06:28] LABS: HEMATOCRIT 40.3 % (37.9-51.0); HEMOGLOBIN 13.2 g/dL (13.5-17.0); HGB HCT DIFFERENCE -0.7; MEAN CORPUSCULAR HEMOGLOBIN 30.7 pg (27.0-33.4); MEAN CORPUSCULAR HGB CONC 32.8 g/dL (32.0-36.0); MEAN CORPUSCULAR VOLUME 94 fl (80-97); WHITE BLOOD COUNT 8.9 10^3/uL (4.0-10.5)
[2016-04-25 06:40] LABS: ALANINE AMINOTRANSFERASE 55 U/L (21-72); ALBUMIN 3.1 g/dL (3.5-5.0); ALKALINE PHOSPHATASE 33 U/L (38-126); ANION GAP 7 (5-19); ASPARTATE AMINO TRANSFERASE 22 U/L (17-59); BILIRUBIN,TOTAL 0.9 mg/dL (0.2-1.3); BLOOD UREA NITROGEN 28 mg/dL (7-20); CALCIUM 8.9 mg/dL (8.4-10.2); CARBON DIOXIDE 30 mmol/L (22-30); CHLORIDE 106 mmol/L (98-107); CREATININE RESULT 0.88 mg/dL (0.52-1.25); GLUCOSE 80 mg/dL (75-110); MAGNESIUM 2.2 mg/dL (1.6-2.3); PHOSPHORUS 3.7 mg/dL (2.5-4.5); POTASSIUM 3.6 mmol/L (3.6-5.0); SODIUM 143.2 mmol/L (137-145); TOTAL PROTEIN 5.1 g/dL (6.3-8.2)
[2016-04-25] MEDS: ENOXAPARIN SODIUM INJ 40 MG/0.4 ML DISP.SYRIN SUBCUT SCH (07:35)
[2016-04-25] MEDS: METFORMIN HCL 500 MG TABLET NG SCH (07:35)
[2016-04-25] MEDS: ASPIRIN 81 MG TABLET, CHEWABLE NG SCH (09:55)
[2016-04-25] MEDS: PREDNISONE 20 MG TABLET NG SCH (09:55)
[2016-04-25] MEDS: RISPERIDONE 1 MG TABLET PO SCH (09:55)
[2016-04-25] MEDS: FUROSEMIDE INJ/PF 20 MG/2 ML SDV IV SCH ×2 (09:55→21:50)
[2016-04-25] MEDS: FAMOTIDINE INJ/PF 20 MG/2 ML SDV IV SCH ×2 (09:55→21:51)
[2016-04-25] MEDS: LOSARTAN POTASSIUM 50 MG TABLET NG SCH (09:56)
[2016-04-25] MEDS: FLUTICASONE NASAL SPRAY 50 MCG/SPRY 120 SPRAY/16 GM NASL SCH (09:56)
--- NOTE | 2016-04-25 11:27 | PDOC PROGRESS REPORT ---
Subjective Progress Note for:: 04/24/16 Subjective:: Intubated and sedated Physical Exam Vital Signs: Temp Pulse Resp BP Pulse Ox 98.8 F 71 12 140/63 H 93 04/25/16 08:00 04/25/16 08:01 04/25/16 08:01 04/25/16 08:00 04/25/16 08:01 Intake & Output 04/24/16 04/25/16 04/26/16 06:59 06:59 06:59 Intake Total 4055 4276 30 Output Total 4610 2610 225 Balance -555 1666 -195 Weight 146.6 kg 149.3 kg General appearance: PRESENT: disheveled, morbidly obese Head exam: PRESENT: atraumatic, normocephalic Eye exam: PRESENT: conjunctiva pale Mouth exam: PRESENT: moist, neck supple, tongue midline, other - ET tube in place Neck exam: ABSENT: carotid bruit, JVD, lymphadenopathy, thyromegaly Respiratory exam: PRESENT: decreased breath sounds, prolonged expiratory phas, rhonchi, symmetrical, unlabored, wheezes Cardiovascular exam: PRESENT: irregular rhythm Pulses: PRESENT: normal radial pulses GI/Abdominal exam: PRESENT: normal bowel sounds, soft. ABSENT: distended, guarding, mass, organolmegaly, rebound, tenderness Rectal exam: PRESENT: deferred Gentrourinary exam: PRESENT: indwelling catheter Extremities exam: PRESENT: +1 edema Skin exam: PRESENT: dry, warm Results Laboratory Results: 04/25/16 06:15 04/25/16 06:15 04/25/16 04/25/16 04/25/16 06:03 06:03 06:15 WBC 8.9 RBC 4.30 L Hgb 13.2 L Hct 40.3 MCV 94 MCH 30.7 MCHC 32.8 RDW 16.0 H Plt Count 167 Carbonic Acid 1.22 HCO3/H2CO3 Ratio 21:1 ABG pH 7.43 ABG pCO2 40.5 ABG pO2 73.2 L ABG HCO3 26.3 H ABG O2 Saturation 95.1 ABG Base Excess 1.9 FiO2 30% Sodium Potassium Chloride Carbon Dioxide Anion Gap BUN Creatinine Est GFR ( Amer) Est GFR (Non-Af Amer) Glucose Calcium Phosphorus Magnesium Total Bilirubin AST ALT Alkaline Phosphatase Total Protein Albumin Urine Color YELLOW Urine Appearance CLEAR Urine pH 5.0 Ur Specific [place] 1.023 Urine Protein NEGATIVE Urine Glucose (UA) NEGATIVE Urine Ketones NEGATIVE Urine Blood NEGATIVE Urine Nitrite NEGATIVE Ur Leukocyte Esterase NEGATIVE Urine WBC (Auto) 0 Urine RBC (Auto) 1 04/25/16 06:15 WBC RBC Hgb Hct MCV MCH MCHC RDW Plt Count Carbonic Acid HCO3/H2CO3 Ratio ABG pH ABG pCO2 ABG pO2 ABG HCO3 ABG O2 Saturation ABG Base Excess FiO2 Sodium 143.2 Potassium 3.6 Chloride 106 Carbon Dioxide 30 Anion Gap 7 BUN 28 H Creatinine 0.88 Est GFR ( Amer) > 60 Est GFR (Non-Af Amer) > 60 Glucose 80 Calcium 8.9 Phosphorus 3.7 Magnesium 2.2 Total Bilirubin 0.9 AST 22 ALT 55 Alkaline Phosphatase 33 L Total Protein 5.1 L Albumin 3.1 L Urine Color Urine Appearance Urine pH Ur Specific [place] Urine Protein Urine Glucose (UA) Urine Ketones Urine Blood Urine Nitrite Ur Leukocyte Esterase Urine WBC (Auto) Urine RBC (Auto) Impressions: KUB X-Ray 04/16/16 00:00 IMPRESSION: Nasogastric tube tip and side port in the stomach Chest X-Ray 04/25/16 06:00 IMPRESSION: 1. Support tubes and lines as above. 2. Persistent bibasilar airspace opacities likely representing combination of atelectasis/effusion, left greater than right. Overall these appear similar to slightly improved in comparison the prior study. Assessment & Plan - Diagnosis (1) Acute and chronic respiratory failure ([id number]) Qualifiers: Respiratory failure complication: hypoxia and hypercapnia Qualified Code(s): J96.21 - Acute and chronic respiratory failure with hypoxia Is this a current diagnosis for this admission?: YesPlan: FiO2 minute volume impedance to remain elevated (2) COPD (chronic obstructive pulmonary disease) Qualifiers: COPD type: COPD with acute exacerbation Qualified Code(s): J44.1 - Chronic obstructive pulmonary disease with (acute) exacerbation Is this a current diagnosis for this admission?: YesPlan: Continue current bronchodilator therapy (3) CHF (congestive heart failure) Qualifiers: Congestive heart failure type: unspecified congestive heart failure type Congestive heart failure chronicity: unspecified congestive heart failure chronicity Qualified Code(s): I50.9 - Heart failure, unspecified Is this a current diagnosis for this admission?: YesPlan: Diuretics as needed judicious use of fluids - Time Critical Time spent with patient: 25-34 minutes - 30 minutes
--- NOTE | 2016-04-25 11:29 | PDOC PROGRESS REPORT ---
Subjective Progress Note for:: 04/25/16 Subjective:: Intubated and sedated but arousable Physical Exam Vital Signs: Temp Pulse Resp BP Pulse Ox 98.8 F 71 12 140/63 H 93 04/25/16 08:00 04/25/16 08:01 04/25/16 08:01 04/25/16 08:00 04/25/16 08:01 Intake & Output 04/24/16 04/25/16 04/26/16 06:59 06:59 06:59 Intake Total 4055 4276 30 Output Total 4610 2610 225 Balance -555 1666 -195 Weight 146.6 kg 149.3 kg General appearance: PRESENT: no acute distress, disheveled, morbidly obese Head exam: PRESENT: atraumatic, normocephalic Eye exam: PRESENT: conjunctiva pale Mouth exam: PRESENT: moist, neck supple, tongue midline, other - ET tube in place Neck exam: PRESENT: carotid bruit Respiratory exam: PRESENT: decreased breath sounds, prolonged expiratory phas, rhonchi, symmetrical, unlabored Cardiovascular exam: PRESENT: irregular rhythm Pulses: PRESENT: normal radial pulses GI/Abdominal exam: PRESENT: normal bowel sounds, soft. ABSENT: distended, guarding, mass, organolmegaly, rebound, tenderness Rectal exam: PRESENT: deferred Gentrourinary exam: PRESENT: urethral discharge Results Laboratory Results: 04/25/16 06:15 04/25/16 06:15 04/25/16 04/25/16 04/25/16 06:03 06:03 06:15 WBC 8.9 RBC 4.30 L Hgb 13.2 L Hct 40.3 MCV 94 MCH 30.7 MCHC 32.8 RDW 16.0 H Plt Count 167 Carbonic Acid 1.22 HCO3/H2CO3 Ratio 21:1 ABG pH 7.43 ABG pCO2 40.5 ABG pO2 73.2 L ABG HCO3 26.3 H ABG O2 Saturation 95.1 ABG Base Excess 1.9 FiO2 30% Sodium Potassium Chloride Carbon Dioxide Anion Gap BUN Creatinine Est GFR ( Amer) Est GFR (Non-Af Amer) Glucose Calcium Phosphorus Magnesium Total Bilirubin AST ALT Alkaline Phosphatase Total Protein Albumin Urine Color YELLOW Urine Appearance CLEAR Urine pH 5.0 Ur Specific [place] 1.023 Urine Protein NEGATIVE Urine Glucose (UA) NEGATIVE Urine Ketones NEGATIVE Urine Blood NEGATIVE Urine Nitrite NEGATIVE Ur Leukocyte Esterase NEGATIVE Urine WBC (Auto) 0 Urine RBC (Auto) 1 04/25/16 06:15 WBC RBC Hgb Hct MCV MCH MCHC RDW Plt Count Carbonic Acid HCO3/H2CO3 Ratio ABG pH ABG pCO2 ABG pO2 ABG HCO3 ABG O2 Saturation ABG Base Excess FiO2 Sodium 143.2 Potassium 3.6 Chloride 106 Carbon Dioxide 30 Anion Gap 7 BUN 28 H Creatinine 0.88 Est GFR ( Amer) > 60 Est GFR (Non-Af Amer) > 60 Glucose 80 Calcium 8.9 Phosphorus 3.7 Magnesium 2.2 Total Bilirubin 0.9 AST 22 ALT 55 Alkaline Phosphatase 33 L Total Protein 5.1 L Albumin 3.1 L Urine Color Urine Appearance Urine pH Ur Specific [place] Urine Protein Urine Glucose (UA) Urine Ketones Urine Blood Urine Nitrite Ur Leukocyte Esterase Urine WBC (Auto) Urine RBC (Auto) Impressions: KUB X-Ray 04/16/16 00:00 IMPRESSION: Nasogastric tube tip and side port in the stomach Chest X-Ray 04/25/16 06:00 IMPRESSION: 1. Support tubes and lines as above. 2. Persistent bibasilar airspace opacities likely representing combination of atelectasis/effusion, left greater than right. Overall these appear similar to slightly improved in comparison the prior study. Assessment & Plan - Diagnosis (1) Acute and chronic respiratory failure ([id number]) Qualifiers: Respiratory failure complication: hypoxia and hypercapnia Qualified Code(s): J96.21 - Acute and chronic respiratory failure with hypoxia Is this a current diagnosis for this admission?: YesPlan: FiO2 decreased to 30% PEEP of 10 saturation increased with a decrease in PEEP therefore FiO2 respiratory rate PEEP minute ventilation and airway pressures suggest successful extubation will proceed with extubation (2) COPD (chronic obstructive pulmonary disease) Qualifiers: COPD type: COPD with acute exacerbation Qualified Code(s): J44.1 - Chronic obstructive pulmonary disease with (acute) exacerbation Is this a current diagnosis for this admission?: YesPlan: Continue current bronchodilator therapy (3) CHF (congestive heart failure) Qualifiers: Congestive heart failure type: unspecified congestive heart failure type Congestive heart failure chronicity: unspecified congestive heart failure chronicity Qualified Code(s): I50.9 - Heart failure, unspecified Is this a current diagnosis for this admission?: Yes - Time Critical Time spent with patient: 35 or more minutes - 55 minutes extubation
[2016-04-25] MEDS ORDERED: ADENOSINE INJ/PF 6 MG/2 ML SDV IV ONE ×2 (14:52→15:45)
[2016-04-25] MEDS ORDERED: DILTIAZEM HCL/D5W 125 MG/125 ML RTUINJ IV ONE (14:58)
[2016-04-25] MEDS ORDERED: DILTIAZEM HCL INJ 25 MG/5 ML VIAL ONE (14:58)
[2016-04-25 15:22] LABS: ARTERIAL BLOOD O2 SATURATION 93.8 % (94-98)
[2016-04-25] MEDS ORDERED: DILTIAZEM HCL/D5W 125 MG/125 ML RTUINJ IV PRN ×2 (15:41→16:42)
[2016-04-25] MEDS ORDERED: DILTIAZEM HCL INJ 25 MG/5 ML VIAL IV ONE (15:45)
[2016-04-25 15:51] LABS: ANION GAP 12 (5-19); BLOOD UREA NITROGEN 28 mg/dL (7-20); CALCIUM 8.1 mg/dL (8.4-10.2); CARBON DIOXIDE 26 mmol/L (22-30); CHLORIDE 105 mmol/L (98-107); CREATINE KINASE 31 U/L (55-170); CREATININE RESULT 0.81 mg/dL (0.52-1.25); GLUCOSE 126 mg/dL (75-110); MAGNESIUM 1.9 mg/dL (1.6-2.3); PHOSPHORUS 3.5 mg/dL (2.5-4.5); POTASSIUM 3.7 mmol/L (3.6-5.0); SODIUM 143.3 mmol/L (137-145)
[2016-04-25 16:01] LABS: CREATINE KINASE MB < 0.22 ng/mL (<4.55); TROPONIN I < 0.012 ng/mL
[2016-04-25] MEDS ORDERED: ALPRAZOLAM 0.25 MG TABLET PO PRN (17:10)
[2016-04-25] MEDS: ALPRAZOLAM 0.5 MG TABLET NG PRN (17:44)
--- NOTE | 2016-04-25 18:30 | PDOC PROGRESS REPORT ---
Subjective Progress Note for:: 04/24/16 Subjective:: Patient still sedated on mechanical ventilation Physical Exam Vital Signs: Temp Pulse Resp BP Pulse Ox 99.1 F 80 14 104/54 L 91 L 04/24/16 18:00 04/24/16 18:00 04/24/16 18:00 04/24/16 18:00 04/24/16 18:00 Intake & Output 04/23/16 04/24/16 04/25/16 06:59 06:59 06:59 Intake Total 3958 4055 2384 Output Total 0833 4610 1775 Balance 953 -273 609 Weight 148.5 kg 146.6 kg Eye exam: PRESENT: PERRLA Neck exam: PRESENT: full ROM Cardiovascular exam: PRESENT: RRR, +S1, +S2 GI/Abdominal exam: PRESENT: normal bowel sounds, soft Rectal exam: PRESENT: deferred Results Laboratory Results: 04/24/16 03:43 04/24/16 03:43 04/24/16 04/24/16 04/24/16 03:43 03:43 04:35 WBC 7.7 RBC 4.51 Hgb 13.5 Hct 43.0 MCV 95 MCH 29.9 MCHC 31.4 L RDW 15.8 H Plt Count 154 Seg Neutrophils % 74.1 Lymphocytes % 15.0 Monocytes % 9.6 Eosinophils % 1.0 Basophils % 0.3 Absolute Neutrophils 5.7 Absolute Lymphocytes 1.2 Absolute Monocytes 0.7 Absolute Eosinophils 0.1 Absolute Basophils 0.0 Carbonic Acid 1.49 H HCO3/H2CO3 Ratio 22:1 ABG pH 7.44 ABG pCO2 49.5 H ABG pO2 74.6 L ABG HCO3 33.2 H ABG O2 Saturation 95.3 ABG Base Excess 7.7 FiO2 35% Sodium 144.4 Potassium 3.7 Chloride 104 Carbon Dioxide 32 H Anion Gap 8 BUN 29 H Creatinine 0.90 Est GFR ( Amer) > 60 Est GFR (Non-Af Amer) > 60 Glucose 82 Calcium 8.8 Magnesium 2.1 Total Bilirubin 0.7 AST 23 ALT 60 Alkaline Phosphatase 32 L Total Protein 5.0 L Albumin 2.8 L Impressions: KUB X-Ray 04/16/16 00:00 IMPRESSION: Nasogastric tube tip and side port in the stomach Chest X-Ray 04/24/16 00:00 IMPRESSION: Stable. Moderate bibasilar opacities, left more than right. Assessment & Plan - Diagnosis (1) Acute and chronic respiratory failure ([id number]) Qualifiers: Respiratory failure complication: hypoxia and hypercapnia Qualified Code(s): J96.21 - Acute and chronic respiratory failure with hypoxia Is this a current diagnosis for this admission?: Yes (2) Type 2 diabetes mellitus Qualifiers: Diabetes mellitus complication status: with neurologic complications Diabetes mellitus complication detail: with polyneuropathy Diabetes mellitus terminologist insulin use: with terminologist use Qualified Code(s): E11.42 - Type 2 diabetes mellitus with diabetic polyneuropathy; Z79.4 - [facility] (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 insulin Is this a current diagnosis for this admission?: Yes (3) Morbid obesity with BMI of 40.0-44.9, adult Is this a current diagnosis for this admission?: Yes (4) Swelling of left lower extremity Is this a current diagnosis for this admission?: Yes (5) Tobacco abuse Is this a current diagnosis for this admission?: Yes
--- NOTE | 2016-04-25 18:31 | EKG REPORT ---
SEVERITY:- ABNORMAL ECG - SINUS RHYTHM RBBB AND LPFB OLD INFERIOR NE : Confirmed by: Harley Perrin MD 25-Apr-2016 18:29:50
--- NOTE | 2016-04-25 18:35 | EKG REPORT ---
SEVERITY:- ABNORMAL ECG - SUPRAVENTRICULAR TACHYCARDIA WIDE COMPLEX TACHYCARDIA DUE TO PRE-EXISTING CRBBB RIGHT BUNDLE BRANCH BLOCK : Confirmed by: Harley Perrin MD 25-Apr-2016 18:35:13
--- NOTE | 2016-04-25 18:40 | PDOC PROGRESS REPORT ---
Subjective Progress Note for:: 04/25/16 Subjective:: The patient was extubated today Physical Exam Vital Signs: Temp Pulse Resp BP Pulse Ox 99.0 F 103 H 25 H 130/66 H 95 04/25/16 18:00 04/25/16 16:00 04/25/16 18:00 04/25/16 17:53 04/25/16 18:00 Intake & Output 04/24/16 04/25/16 04/26/16 06:59 06:59 06:59 Intake Total 4055 4276 1041 Output Total 4610 2610 3130 Balance -555 8760 -1525 Weight 146.6 kg 149.3 kg General appearance: PRESENT: obese Eye exam: PRESENT: PERRLA Respiratory exam: PRESENT: clear to auscultation coty Cardiovascular exam: PRESENT: +S1, +S2 GI/Abdominal exam: PRESENT: soft Results Laboratory Results: 04/25/16 06:15 04/25/16 15:20 04/25/16 04/25/16 04/25/16 06:03 06:03 06:15 WBC 8.9 RBC 4.30 L Hgb 13.2 L Hct 40.3 MCV 94 MCH 30.7 MCHC 32.8 RDW 16.0 H Plt Count 167 Carbonic Acid 1.22 HCO3/H2CO3 Ratio 21:1 ABG pH 7.43 ABG pCO2 40.5 ABG pO2 73.2 L ABG HCO3 26.3 H ABG O2 Saturation 95.1 ABG Base Excess 1.9 FiO2 30% Sodium Potassium Chloride Carbon Dioxide Anion Gap BUN Creatinine Est GFR ( Amer) Est GFR (Non-Af Amer) Glucose Calcium Phosphorus Magnesium Total Bilirubin AST ALT Alkaline Phosphatase Total Protein Albumin Urine Color YELLOW Urine Appearance CLEAR Urine pH 5.0 Ur Specific [place] 1.023 Urine Protein NEGATIVE Urine Glucose (UA) NEGATIVE Urine Ketones NEGATIVE Urine Blood NEGATIVE Urine Nitrite NEGATIVE Ur Leukocyte Esterase NEGATIVE Urine WBC (Auto) 0 Urine RBC (Auto) 1 04/25/16 04/25/16 04/25/16 06:15 15:10 15:20 WBC RBC Hgb Hct MCV MCH MCHC RDW Plt Count Carbonic Acid 1.46 H HCO3/H2CO3 Ratio 19:1 ABG pH 7.39 ABG pCO2 48.4 H ABG pO2 70.0 L ABG HCO3 28.8 H ABG O2 Saturation 93.8 L ABG Base Excess 3.0 FiO2 50% Sodium 143.2 143.3 Potassium 3.6 3.7 Chloride 106 105 Carbon Dioxide 30 26 Anion Gap 7 12 BUN 28 H 28 H Creatinine 0.88 0.81 Est GFR ( Amer) > 60 > 60 Est GFR (Non-Af Amer) > 60 > 60 Glucose 80 126 H Calcium 8.9 8.1 L Phosphorus 3.7 3.5 Magnesium 2.2 1.9 Total Bilirubin 0.9 AST 22 ALT 55 Alkaline Phosphatase 33 L Total Protein 5.1 L Albumin 3.1 L Urine Color Urine Appearance Urine pH Ur Specific [place] Urine Protein Urine Glucose (UA) Urine Ketones Urine Blood Urine Nitrite Ur Leukocyte Esterase Urine WBC (Auto) Urine RBC (Auto) 04/25/16 04/25/16 15:20 15:20 Creatine Kinase 31 L CK-MB (CK-2) < 0.22 Troponin I < 0.012 Impressions: KUB X-Ray 04/16/16 00:00 IMPRESSION: Nasogastric tube tip and side port in the stomach Chest X-Ray 04/25/16 06:00 IMPRESSION: 1. Support tubes and lines as above. 2. Persistent bibasilar airspace opacities likely representing combination of atelectasis/effusion, left greater than right. Overall these appear similar to slightly improved in comparison the prior study. Assessment & Plan - Diagnosis (1) Acute and chronic respiratory failure ([id number]) Qualifiers: Respiratory failure complication: hypoxia and hypercapnia Qualified Code(s): J96.21 - Acute and chronic respiratory failure with hypoxia Is this a current diagnosis for this admission?: Yes (2) Type 2 diabetes mellitus Qualifiers: Diabetes mellitus complication status: with neurologic complications Diabetes mellitus complication detail: with polyneuropathy Diabetes mellitus culinary artist insulin use: with retirement use Qualified Code(s): E11.42 - Type 2 diabetes mellitus with diabetic polyneuropathy; Z79.4 - residential (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 insulin Is this a current diagnosis for this admission?: Yes (3) Morbid obesity with BMI of 40.0-44.9, adult Is this a current diagnosis for this admission?: Yes (4) Swelling of left lower extremity Is this a current diagnosis for this admission?: Yes (5) Tobacco abuse Is this a current diagnosis for this admission?: Yes (6) Paroxysmal supraventricular tachycardia Is this a current diagnosis for this admission?: YesPlan: Patient was given 6 mg of adenosine and subsequently started on IV Cardizem drip
[2016-04-25] MEDS: IBUPROFEN 800 MG in NORMAL SALINE 250 ML IV PRN (21:50)
[2016-04-25] MEDS: RISPERIDONE 1 MG TABLET NG SCH (21:51)
[2016-04-26] MEDS: IPRATROPIUM/ALBUTEROL 0.5-2.5 MG/3 ML AMPUL NEB SCH ×4 (02:16→20:55)
[2016-04-26] MEDS: NORMAL SALINE 1000 ML 1,000 ML IV PRN ×2 (04:09→22:19)
[2016-04-26 04:12] LABS: ARTERIAL BLOOD BASE EXCESS 3.3 mmol/L
[2016-04-26 04:19] LABS: ABSOLUTE LYMPHOCYTES (AUTO) 0.7 10^3/uL (0.5-4.7); ABSOLUTE MONOCYTES (AUTO) 0.8 10^3/uL (0.1-1.4); ABSOLUTE NEUT (AUTO) 5.1 10^3/uL (1.7-8.2); BASOPHILS % (AUTO) 0.4 % (0-2); EOSINOPHILS % (AUTO) 0.6 % (0-6); HEMATOCRIT 42.4 % (37.9-51.0); HEMOGLOBIN 13.3 g/dL (13.5-17.0); HGB HCT DIFFERENCE -2.5; LYMPHOCYTES % (AUTO) 10.4 % (13-45); MEAN CORPUSCULAR HGB CONC 31.4 g/dL (32.0-36.0); MEAN CORPUSCULAR VOLUME 96 fl (80-97); MONOCYTES % (AUTO) 11.4 % (3-13); RED BLOOD COUNT 4.44 10^6/uL (4.35-5.55); RED CELL DISTRIBUTION WIDTH 15.7 % (11.5-14.0); SEGMENTED NEUTROPHILS % (AUTO) 77.2 % (42-78); WHITE BLOOD COUNT 6.6 10^3/uL (4.0-10.5)
[2016-04-26 04:38] LABS: ALANINE AMINOTRANSFERASE 58 U/L (21-72); ALBUMIN 3.1 g/dL (3.5-5.0); ALKALINE PHOSPHATASE 33 U/L (38-126); ANION GAP 8 (5-19); ASPARTATE AMINO TRANSFERASE 26 U/L (17-59); BILIRUBIN,TOTAL 0.9 mg/dL (0.2-1.3); BLOOD UREA NITROGEN 25 mg/dL (7-20); CALCIUM 8.6 mg/dL (8.4-10.2); CARBON DIOXIDE 32 mmol/L (22-30); CHLORIDE 107 mmol/L (98-107); CREATININE RESULT 0.76 mg/dL (0.52-1.25); GLUCOSE 74 mg/dL (75-110); MAGNESIUM 2.1 mg/dL (1.6-2.3); POTASSIUM 3.8 mmol/L (3.6-5.0); SODIUM 147.3 mmol/L (137-145); TOTAL PROTEIN 5.2 g/dL (6.3-8.2)
[2016-04-26] MEDS ORDERED: PROPOFOL 100 ML IV ONE (04:49)
[2016-04-26] MEDS ORDERED: PROPOFOL INJ 200 MG/20 ML VIAL IV ONE (05:28)
[2016-04-26 06:19] LABS: ARTERIAL BLOOD BASE EXCESS 3.8 mmol/L
[2016-04-26] MEDS: ENOXAPARIN SODIUM INJ 40 MG/0.4 ML DISP.SYRIN SUBCUT SCH (09:29)
[2016-04-26] MEDS: RISPERIDONE 1 MG TABLET NG SCH ×2 (09:32→22:19)
[2016-04-26] MEDS: FAMOTIDINE INJ/PF 20 MG/2 ML SDV IV SCH ×2 (09:32→22:18)
[2016-04-26] MEDS: METFORMIN HCL 500 MG TABLET NG SCH (09:32)
[2016-04-26] MEDS: FUROSEMIDE INJ/PF 20 MG/2 ML SDV IV SCH ×2 (09:32→22:18)
[2016-04-26] MEDS: ASPIRIN 81 MG TABLET, CHEWABLE NG SCH (09:33)
[2016-04-26] MEDS: ALPRAZOLAM 0.5 MG TABLET NG PRN (09:33)
[2016-04-26] MEDS: PREDNISONE 20 MG TABLET NG SCH (09:33)
[2016-04-26] MEDS: PROPOFOL 100 ML IV PRN ×4 (09:53→22:00)
[2016-04-26] MEDS: FLUTICASONE NASAL SPRAY 50 MCG/SPRY 120 SPRAY/16 GM NASL SCH (09:54)
[2016-04-26] MEDS ORDERED: SUCCINYLCHOLINE CHLORIDE INJ 200 MG/10 ML VIAL ONE (10:12)
--- NOTE | 2016-04-26 11:41 | PDOC CONSULTATION ---
Consultation Consult Date: 04/26/16 Consult reason:: Tracheostomy History of Present Illness Admission Date/PCP: 04/15/16 23:40 [facility], History of Present Illness: Patient was just discharged on 04/14/2016 at the time he presented with acute hypercapnic respiratory failure with associated metabolic alkalosis,due to acute COPD exacerbation. He was treated successfully with intravenous Solu- Medrol, antibiotic, Levaquin and bronchodilators. When patient got home, he went back smoking again and he deteriorated very rapidly, he came to emergency room, his breathing was supported with positive pressure ventilation, BiPAP, but his condition continued to decline and he was ultimately intubated now on mechanical ventilation. Surgeons addendum debated, extubated and reintubated on 2 occasions during this most recent hospitalization. On the ventilator, sedated, hemodynamically stable , tolerating tube feedings via nasogastric tube. Past Medical History Cardiac Medical History: Reports: Congestive Heart Failure, Hypertension Pulmonary Medical History: Reports: Chronic Obstructive Pulmonary Disease (COPD) , Pneumonia Endocrine Medical History: Reports: Diabetes Mellitus Type 2 Psychiatric Medical History: Reports: Depression Social History Smoking Status: Current Every Day Smoker Frequency of Alcohol Use: Occasional Hx Recreational Drug Use: No Drugs: None Hx Prescription Drug Abuse: No Family History Family History: Reviewed & Not Pertinent Parental Family History Reviewed: No Children Family History Reviewed: NA Sibling(s) Family History Reviewed.: NA Medication/Allergy Home Medications: Furosemide [Lasix 40 mg Tablet] 40 mg PO BID 04/16/16 Losartan Potassium [Cozaar 100 mg Tablet] 100 mg PO DAILY 04/16/16 Allergies/Adverse Reactions: No Known Allergies Allergy (Verified 04/15/16 22:19) Physical Exam Vital Signs: Temp Pulse Resp BP Pulse Ox 98.4 F 66 14 91/58 L 96 04/26/16 08:00 04/26/16 10:00 04/26/16 10:00 04/26/16 10:00 04/26/16 10:00 Intake & Output 04/25/16 04/26/16 04/27/16 06:59 06:59 06:59 Intake Total 4276 6208 Output Total 2619 9495 185 Balance 1666 -2837 -185 Weight 149.3 kg 143.4 kg Results Laboratory Results: 04/26/16 03:46 04/26/16 03:46 04/25/16 04/25/16 04/26/16 15:10 15:20 03:46 WBC 6.6 RBC 4.44 Hgb 13.3 L Hct 42.4 MCV 96 MCH 30.0 MCHC 31.4 L RDW 15.7 H Plt Count 150 Seg Neutrophils % 77.2 Lymphocytes % 10.4 L Monocytes % 11.4 Eosinophils % 0.6 Basophils % 0.4 Absolute Neutrophils 5.1 Absolute Lymphocytes 0.7 Absolute Monocytes 0.8 Absolute Eosinophils 0.0 Absolute Basophils 0.0 Carbonic Acid 1.46 H HCO3/H2CO3 Ratio 19:1 ABG pH 7.39 ABG pCO2 48.4 H ABG pO2 70.0 L ABG HCO3 28.8 H ABG O2 Saturation 93.8 L ABG Base Excess 3.0 FiO2 50% Sodium 143.3 Potassium 3.7 Chloride 105 Carbon Dioxide 26 Anion Gap 12 BUN 28 H Creatinine 0.81 Est GFR ( Amer) > 60 Est GFR (Non-Af Amer) > 60 Glucose 126 H Calcium 8.1 L Phosphorus 3.5 Magnesium 1.9 Total Bilirubin AST ALT Alkaline Phosphatase Total Protein Albumin 04/26/16 04/26/16 04/26/16 03:46 04:05 06:05 WBC RBC Hgb Hct MCV MCH MCHC RDW Plt Count Seg Neutrophils % Lymphocytes % Monocytes % Eosinophils % Basophils % Absolute Neutrophils Absolute Lymphocytes Absolute Monocytes Absolute Eosinophils Absolute Basophils Carbonic Acid 2.06 H 1.59 H HCO3/H2CO3 Ratio 15:1 18:1 ABG pH 7.29 L 7.38 ABG pCO2 68.4 H 52.7 H ABG pO2 92.5 77.3 L ABG HCO3 32.1 H 30.2 H ABG O2 Saturation 96.0 95.0 ABG Base Excess 3.3 3.8 FiO2 50% 50% Sodium 147.3 H Potassium 3.8 Chloride 107 Carbon Dioxide 32 H Anion Gap 8 BUN 25 H Creatinine 0.76 Est GFR ( Amer) > 60 Est GFR (Non-Af Amer) > 60 Glucose 74 L Calcium 8.6 Phosphorus Magnesium 2.1 Total Bilirubin 0.9 AST 26 ALT 58 Alkaline Phosphatase 33 L Total Protein 5.2 L Albumin 3.1 L 04/25/16 04/25/16 15:20 15:20 Creatine Kinase 31 L CK-MB (CK-2) < 0.22 Troponin I < 0.012 Impressions: KUB X-Ray 04/16/16 00:00 IMPRESSION: Nasogastric tube tip and side port in the stomach Chest X-Ray 04/26/16 06:00 IMPRESSION: Small bilateral pleural effusions with bibasilar airspace opacities , may represent atelectasis or pneumonia. Mild cardiomegaly and central vascular congestion. Low lying endotracheal tube, retraction by approximately 2-3 cm recommended. Assessment & Plan - Diagnosis (1) Acute and chronic respiratory failure ([id number]) Qualifiers: Respiratory failure complication: hypoxia and hypercapnia Qualified Code(s): J96.21 - Acute and chronic respiratory failure with hypoxia Is this a current diagnosis for this admission?: YesPlan: 1. Patient is an appropriate candidate for operative tracheostomy. As the patient is is sedated, and on a ventilator, we cannot obtain informed consent from him. Therefore spoke to the patient's niece about the indication for the tracheostomy, as well as a thorough expiration numbers benefits alternatives. Included bleeding, infection, trach dislodgment, respiratory failure and even . The lesion understands and agrees to proceed. 2. We will set this up for tomorrow, main operating room, general anesthesia. 3. We will hold Lovenox. (2) Morbid obesity Is this a current diagnosis for this admission?: Yes
[2016-04-26] MEDS: LOSARTAN POTASSIUM 50 MG TABLET NG SCH (12:38)
--- NOTE | 2016-04-26 13:16 | PDOC PROGRESS REPORT ---
Subjective Progress Note for:: 04/26/16 Subjective:: extubation last 14 hrs then reintubated increasing PCO2 Physical Exam Vital Signs: Temp Pulse Resp BP Pulse Ox 98.4 F 63 36 H 100/58 L 97 04/26/16 08:00 04/26/16 08:00 04/26/16 08:00 04/26/16 08:00 04/26/16 08:00 Intake & Output 04/25/16 04/26/16 04/27/16 06:59 06:59 06:59 Intake Total 4276 2518 Output Total 2610 5355 60 Balance 6682 -3297 -60 Weight 149.3 kg 143.4 kg General appearance: PRESENT: disheveled, morbidly obese Head exam: PRESENT: atraumatic, normocephalic Eye exam: PRESENT: conjunctiva pink Mouth exam: PRESENT: moist, neck supple, tongue midline, other - ET tube in place Neck exam: ABSENT: carotid bruit, JVD, lymphadenopathy, thyromegaly Respiratory exam: PRESENT: decreased breath sounds, prolonged expiratory phas, rhonchi, symmetrical, unlabored, wheezes Cardiovascular exam: PRESENT: RRR, +S1, +S2 Pulses: PRESENT: normal radial pulses GI/Abdominal exam: PRESENT: ascites Rectal exam: PRESENT: deferred Extremities exam: PRESENT: pedal edema Skin exam: PRESENT: dry, warm Results Laboratory Results: 04/26/16 03:46 04/26/16 03:46 04/25/16 04/25/16 04/26/16 15:10 15:20 03:46 WBC 6.6 RBC 4.44 Hgb 13.3 L Hct 42.4 MCV 96 MCH 30.0 MCHC 31.4 L RDW 15.7 H Plt Count 150 Seg Neutrophils % 77.2 Lymphocytes % 10.4 L Monocytes % 11.4 Eosinophils % 0.6 Basophils % 0.4 Absolute Neutrophils 5.1 Absolute Lymphocytes 0.7 Absolute Monocytes 0.8 Absolute Eosinophils 0.0 Absolute Basophils 0.0 Carbonic Acid 1.46 H HCO3/H2CO3 Ratio 19:1 ABG pH 7.39 ABG pCO2 48.4 H ABG pO2 70.0 L ABG HCO3 28.8 H ABG O2 Saturation 93.8 L ABG Base Excess 3.0 FiO2 50% Sodium 143.3 Potassium 3.7 Chloride 105 Carbon Dioxide 26 Anion Gap 12 BUN 28 H Creatinine 0.81 Est GFR ( Amer) > 60 Est GFR (Non-Af Amer) > 60 Glucose 126 H Calcium 8.1 L Phosphorus 3.5 Magnesium 1.9 Total Bilirubin AST ALT Alkaline Phosphatase Total Protein Albumin 04/26/16 04/26/16 04/26/16 03:46 04:05 06:05 WBC RBC Hgb Hct MCV MCH MCHC RDW Plt Count Seg Neutrophils % Lymphocytes % Monocytes % Eosinophils % Basophils % Absolute Neutrophils Absolute Lymphocytes Absolute Monocytes Absolute Eosinophils Absolute Basophils Carbonic Acid 2.06 H 1.59 H HCO3/H2CO3 Ratio 15:1 18:1 ABG pH 7.29 L 7.38 ABG pCO2 68.4 H 52.7 H ABG pO2 92.5 77.3 L ABG HCO3 32.1 H 30.2 H ABG O2 Saturation 96.0 95.0 ABG Base Excess 3.3 3.8 FiO2 50% 50% Sodium 147.3 H Potassium 3.8 Chloride 107 Carbon Dioxide 32 H Anion Gap 8 BUN 25 H Creatinine 0.76 Est GFR ( Amer) > 60 Est GFR (Non-Af Amer) > 60 Glucose 74 L Calcium 8.6 Phosphorus Magnesium 2.1 Total Bilirubin 0.9 AST 26 ALT 58 Alkaline Phosphatase 33 L Total Protein 5.2 L Albumin 3.1 L 04/25/16 04/25/16 15:20 15:20 Creatine Kinase 31 L CK-MB (CK-2) < 0.22 Troponin I < 0.012 Impressions: KUB X-Ray 04/16/16 00:00 IMPRESSION: Nasogastric tube tip and side port in the stomach Chest X-Ray 04/26/16 06:00 IMPRESSION: Small bilateral pleural effusions with bibasilar airspace opacities , may represent atelectasis or pneumonia. Mild cardiomegaly and central vascular congestion. Low lying endotracheal tube, retraction by approximately 2-3 cm recommended. Assessment & Plan - Diagnosis (1) Acute and chronic respiratory failure ([id number]) Qualifiers: Respiratory failure complication: hypoxia and hypercapnia Qualified Code(s): J96.21 - Acute and chronic respiratory failure with hypoxia Is this a current diagnosis for this admission?: YesPlan: Patient failed extubation all evidence with a 0.2 longed period of intubation discussed with family and requested surgery to consider for possible tracheostomy (2) COPD (chronic obstructive pulmonary disease) Qualifiers: COPD type: COPD with acute exacerbation Qualified Code(s): J44.1 - Chronic obstructive pulmonary disease with (acute) exacerbation Is this a current diagnosis for this admission?: YesPlan: Continue current bronchodilator therapy (3) CHF (congestive heart failure) Qualifiers: Congestive heart failure type: unspecified congestive heart failure type Congestive heart failure chronicity: unspecified congestive heart failure chronicity Qualified Code(s): I50.9 - Heart failure, unspecified Is this a current diagnosis for this admission?: YesPlan: Diuretics as needed judicious use of fluids - Time Critical Time spent with patient: 35 or more minutes - 45 minute
[2016-04-26 15:11] LABS: ARTERIAL BLOOD BASE EXCESS 4.3 mmol/L; ARTERIAL BLOOD O2 SATURATION 93.6 % (94-98)
--- NOTE | 2016-04-26 21:34 | PDOC PROGRESS REPORT ---
Subjective Progress Note for:: 04/26/16 Subjective:: Patient was reintubated this morning when he developed acute hypercapnic respiratory failure Physical Exam Vital Signs: Temp Pulse Resp BP Pulse Ox 99.1 F 87 18 108/95 H 94 04/26/16 19:30 04/26/16 18:00 04/26/16 18:24 04/26/16 18:24 04/26/16 18:24 Intake & Output 04/25/16 04/26/16 04/27/16 06:59 06:59 06:59 Intake Total 4276 4688 1194 Output Total 2618 1175 985 Balance 1666 -5372 209 Weight 149.3 kg 143.4 kg Eye exam: PRESENT: PERRLA Respiratory exam: PRESENT: clear to auscultation coty Cardiovascular exam: PRESENT: +S1, +S2 GI/Abdominal exam: PRESENT: soft Results Laboratory Results: 04/26/16 03:46 04/26/16 03:46 04/26/16 04/26/16 04/26/16 03:46 03:46 04:05 WBC 6.6 RBC 4.44 Hgb 13.3 L Hct 42.4 MCV 96 MCH 30.0 MCHC 31.4 L RDW 15.7 H Plt Count 150 Seg Neutrophils % 77.2 Lymphocytes % 10.4 L Monocytes % 11.4 Eosinophils % 0.6 Basophils % 0.4 Absolute Neutrophils 5.1 Absolute Lymphocytes 0.7 Absolute Monocytes 0.8 Absolute Eosinophils 0.0 Absolute Basophils 0.0 Carbonic Acid 2.06 H HCO3/H2CO3 Ratio 15:1 ABG pH 7.29 L ABG pCO2 68.4 H ABG pO2 92.5 ABG HCO3 32.1 H ABG O2 Saturation 96.0 ABG Base Excess 3.3 FiO2 50% Sodium 147.3 H Potassium 3.8 Chloride 107 Carbon Dioxide 32 H Anion Gap 8 BUN 25 H Creatinine 0.76 Est GFR ( Amer) > 60 Est GFR (Non-Af Amer) > 60 Glucose 74 L Calcium 8.6 Magnesium 2.1 Total Bilirubin 0.9 AST 26 ALT 58 Alkaline Phosphatase 33 L Total Protein 5.2 L Albumin 3.1 L 04/26/16 04/26/16 04/26/16 06:05 13:10 14:55 WBC RBC Hgb Hct MCV MCH MCHC RDW Plt Count Seg Neutrophils % Lymphocytes % Monocytes % Eosinophils % Basophils % Absolute Neutrophils Absolute Lymphocytes Absolute Monocytes Absolute Eosinophils Absolute Basophils Carbonic Acid 1.59 H 1.46 H HCO3/H2CO3 Ratio 18:1 20:1 ABG pH 7.38 7.41 ABG pCO2 52.7 H 48.4 H ABG pO2 77.3 L 68.2 L ABG HCO3 30.2 H 29.9 H ABG O2 Saturation 95.0 93.6 L ABG Base Excess 3.8 4.3 FiO2 50% 50% Sodium Potassium Chloride Carbon Dioxide Anion Gap BUN Creatinine Est GFR ( Amer) Est GFR (Non-Af Amer) Glucose Calcium Magnesium Total Bilirubin AST ALT Alkaline Phosphatase Total Protein Albumin 04/25/16 04/25/16 15:20 15:20 Creatine Kinase 31 L CK-MB (CK-2) < 0.22 Troponin I < 0.012 Impressions: KUB X-Ray 04/16/16 00:00 IMPRESSION: Nasogastric tube tip and side port in the stomach Chest X-Ray 04/26/16 06:00 IMPRESSION: Small bilateral pleural effusions with bibasilar airspace opacities , may represent atelectasis or pneumonia. Mild cardiomegaly and central vascular congestion. Low lying endotracheal tube, retraction by approximately 2-3 cm recommended. Assessment & Plan - Diagnosis (1) Acute and chronic respiratory failure ([id number]) Qualifiers: Respiratory failure complication: hypoxia and hypercapnia Qualified Code(s): J96.21 - Acute and chronic respiratory failure with hypoxia Is this a current diagnosis for this admission?: Yes (2) Type 2 diabetes mellitus Qualifiers: Diabetes mellitus complication status: with neurologic complications Diabetes mellitus complication detail: with polyneuropathy Diabetes mellitus customer relationship specialist insulin use: with customer relationship specialist use Qualified Code(s): E11.42 - Type 2 diabetes mellitus with diabetic polyneuropathy; Z79.4 - dye lab technician (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 insulin Is this a current diagnosis for this admission?: Yes (3) Morbid obesity with BMI of 40.0-44.9, adult Is this a current diagnosis for this admission?: Yes (4) Swelling of left lower extremity Is this a current diagnosis for this admission?: Yes (5) Tobacco abuse Is this a current diagnosis for this admission?: Yes (6) Paroxysmal supraventricular tachycardia Is this a current diagnosis for this admission?: Yes
[2016-04-27] MEDS: PROPOFOL 100 ML IV PRN ×6 (01:16→22:41)
[2016-04-27] MEDS: IPRATROPIUM/ALBUTEROL 0.5-2.5 MG/3 ML AMPUL NEB SCH ×4 (02:50→19:46)
[2016-04-27 03:51] LABS: ARTERIAL BLOOD BASE EXCESS 4.9 mmol/L; ARTERIAL BLOOD O2 SATURATION 94.5 % (94-98)
[2016-04-27 04:25] LABS: HEMATOCRIT 40.9 % (37.9-51.0); HEMOGLOBIN 13.2 g/dL (13.5-17.0); HGB HCT DIFFERENCE -1.3; MEAN CORPUSCULAR HEMOGLOBIN 30.1 pg (27.0-33.4); MEAN CORPUSCULAR HGB CONC 32.1 g/dL (32.0-36.0); MEAN CORPUSCULAR VOLUME 94 fl (80-97); RED BLOOD COUNT 4.37 10^6/uL (4.35-5.55); RED CELL DISTRIBUTION WIDTH 15.3 % (11.5-14.0); WHITE BLOOD COUNT 8.3 10^3/uL (4.0-10.5)
[2016-04-27] MEDS: NORMAL SALINE 1000 ML 1,000 ML IV PRN ×2 (09:13→16:23)
[2016-04-27] MEDS: METFORMIN HCL 500 MG TABLET NG SCH (09:14)
[2016-04-27] MEDS: FAMOTIDINE INJ/PF 20 MG/2 ML SDV IV SCH ×2 (10:23→22:41)
[2016-04-27] MEDS: FUROSEMIDE INJ/PF 20 MG/2 ML SDV IV SCH ×2 (10:25→22:41)
[2016-04-27] MEDS: PREDNISONE 20 MG TABLET NG SCH (10:47)
[2016-04-27] MEDS: RISPERIDONE 1 MG TABLET NG SCH ×2 (10:47→22:42)
[2016-04-27] MEDS: FLUTICASONE NASAL SPRAY 50 MCG/SPRY 120 SPRAY/16 GM NASL SCH (10:47)
[2016-04-27] MEDS: ASPIRIN 81 MG TABLET, CHEWABLE NG SCH (10:47)
[2016-04-27] MEDS ORDERED: FENTANYL CITRATE INJ/PF 100 MCG/2 ML AMPUL ONE ×2 (10:53→10:54)
[2016-04-27] MEDS ORDERED: MIDAZOLAM 2 MG/2 ML INJ ONE (10:54)
[2016-04-27] MEDS ORDERED: LIDOCAINE 1%/EPINEPHRINE INJ 20 ML VIAL ONE (10:55)
[2016-04-27] MEDS ORDERED: PROPOFOL INJ 200 MG/20 ML VIAL IV ONE (10:55)
[2016-04-27] MEDS ORDERED: LIDOCAINE 2% JELLY 30 ML TUBE ONE (10:55)
[2016-04-27] MEDS ORDERED: MORPHINE SULFATE 10 MG/ML INJ IV PRN (11:56)
[2016-04-27] MEDS ORDERED: MEPERIDINE HCL/PF INJ 25 MG/1 ML DISP.SYRIN IV PRN (11:56)
[2016-04-27] MEDS ORDERED: DIPHENHYDRAMINE HCL 50 MG/ML VIAL IV PRN (11:56)
[2016-04-27] MEDS ORDERED: FENTANYL CITRATE INJ/PF 100 MCG/2 ML AMPUL IV PRN ×3 (11:56)
[2016-04-27] MEDS ORDERED: CEFAZOLIN INJ 1 GM VIAL ONE (11:59)
[2016-04-27] MEDS ORDERED: ROCURONIUM BROMIDE INJ 50 MG/5 ML VIAL IV ONE (12:16)
--- NOTE | 2016-04-27 13:05 | Operative Report ---
Operative Report DATE OF SURGERY: 04/27/16 PREOPERATIVE DIAGNOSIS: 1. Respiratory failure. 2. Morbid obesity POSTOPERATIVE DIAGNOSIS: Same OPERATION: Operative tracheostomy with extended 7.0 inner diameter cuff Shiley tracheostomy SURGEON: ESME MCCOY 1ST TRAFFIC REPORTER: MAGGIE ELIZALDE ANESTHESIA: GA TISSUE REMOVED OR ALTERED: None COMPLICATIONS: None ESTIMATED BLOOD LOSS: scant INTRAOPERATIVE FINDINGS: See below PROCEDURE: The patient was taken from the intensive care unit to the preoperative holding area temporarily vented main operating room where general anesthesia was induced through the existing 7.5 Turkish oral tracheal tube. The patient placed supine position arms and legs tucked, and neck hyperextended with elevation pillows behind the shoulder blades to optimize exposure of the neck. The neck was accessible, and that evidence of cellulitis. The neck was prepped and draped sterile fashion. Instrumentation set up for open tracheostomy tube placement. Vertical plan and surgical timeout were conducted. The skin approximately 1 fingerbreadth above the sternal notch was anesthetized 1% lidocaine without epinephrine. Approximately 4 cm transverse incision was made in the skin and subcutaneous tissue and platysma divided. Strap muscles were divided in midline vertically. The dissection was taken down to the trachea. The anatomy was significant for an extremely low-lying thyrocricoid cartilage. We exposed the anterior surface of the thyroid cricoid cartilage and even visualized left recurrent nerve entering into the substance of the larynx. The nerve was Not visualized the nerve on the right side. The dissection continued towards the patient's thoracic inlet. At This point we replaced our retractors, and opened the midline fatty tissue and strap muscles in midline over the sternal notch so as to obtain optimal exposure to the upper trachea. At this point we are now looking at the trachea in a retro- sternal position . The anesthesia team was ready for the transition. She had Adequate help, lighting, and stasis. We then placed a 8-year-old hook underneath the cricoid cartilage and elevated the trachea up into the field of view. An upside down U was cut into the trachea including the web space and second tracheal ring. A 2-0 Prolene stitch was placed in the tracheal flap. This was the rescue stitch. The endotracheal balloon and tube were brought back, and the lumen of the trachea was exposed. Again we had excellent visualization during this maneuver . We brought onto the field an extended, cuffed, 7 mm inner diameter Shiley tracheostomy tube. This was fitted into position using the stylette without difficulty. The stylette was removed, cannula inserted, and ventilatory apparatus hooked up. Oxygenation and ventilation was achieved without compromise. Of note prior to the tracheotomy,, I did divide the upper portion of the isthmus of the thyroid gland which was small and diminutive. This was performed with electrocautery. Again visualization and hemostasis were excellent even though we were in a very deep and minimally accessible pocket behind the sternum. The tracheostomy tube balloon was insufflated, and the trach secured to the skin at 4 sides with 2-0 Vicryl suture. Strap applied. Postoperative procedure well, taken recovery in stable condition. Final x-ray pending.
--- NOTE | 2016-04-27 16:22 | PDOC PROGRESS REPORT ---
Subjective Progress Note for:: 04/27/16 Subjective:: extubation last 14 hrs then reintubated increasing PCO2 plan as per sugery tracheostomy Physical Exam Vital Signs: Temp Pulse Resp BP Pulse Ox 98.2 F 61 14 110/49 L 96 04/27/16 06:00 04/27/16 08:00 04/27/16 06:00 04/27/16 05:54 04/27/16 06:00 Intake & Output 04/26/16 04/27/16 04/28/16 06:59 06:59 06:59 Intake Total 2518 2780 Output Total 5355 2310 Balance -2837 470 Weight 143.4 kg 142.1 kg General appearance: PRESENT: no acute distress, disheveled, morbidly obese Head exam: PRESENT: atraumatic, normocephalic Eye exam: PRESENT: conjunctiva pale Mouth exam: PRESENT: moist, neck supple, tongue midline, other - ET tube in place Neck exam: ABSENT: carotid bruit, JVD, lymphadenopathy, thyromegaly Respiratory exam: PRESENT: decreased breath sounds, prolonged expiratory phas, rhonchi, symmetrical, unlabored Cardiovascular exam: PRESENT: RRR, +S1, +S2 Pulses: PRESENT: normal radial pulses GI/Abdominal exam: PRESENT: normal bowel sounds, soft. ABSENT: distended, guarding, mass, organolmegaly, rebound, tenderness Rectal exam: PRESENT: deferred Gentrourinary exam: PRESENT: indwelling catheter Extremities exam: PRESENT: +1 edema Skin exam: PRESENT: dry, warm Results Laboratory Results: 04/27/16 04:10 04/26/16 03:46 04/26/16 04/26/16 04/27/16 13:10 14:55 03:32 WBC RBC Hgb Hct MCV MCH MCHC RDW Plt Count Carbonic Acid 1.46 H 1.30 HCO3/H2CO3 Ratio 20:1 22:1 ABG pH 7.41 7.45 ABG pCO2 48.4 H 43.2 ABG pO2 68.2 L 68.7 L ABG HCO3 29.9 H 29.5 H ABG O2 Saturation 93.6 L 94.5 ABG Base Excess 4.3 4.9 FiO2 50% 50% Triglycerides 04/27/16 04/27/16 04:10 04:10 WBC 8.3 RBC 4.37 Hgb 13.2 L Hct 40.9 MCV 94 MCH 30.1 MCHC 32.1 RDW 15.3 H Plt Count 145 L Carbonic Acid HCO3/H2CO3 Ratio ABG pH ABG pCO2 ABG pO2 ABG HCO3 ABG O2 Saturation ABG Base Excess FiO2 Triglycerides 177 H 04/25/16 04/25/16 15:20 15:20 Creatine Kinase 31 L CK-MB (CK-2) < 0.22 Troponin I < 0.012 Impressions: KUB X-Ray 04/16/16 00:00 IMPRESSION: Nasogastric tube tip and side port in the stomach Chest X-Ray 04/27/16 05:30 IMPRESSION: STABLE APPEARANCE OF THE CHEST. SUPPORT DEVICES UNCHANGED. Assessment & Plan - Diagnosis (1) Acute and chronic respiratory failure ([id number]) Qualifiers: Respiratory failure complication: hypoxia and hypercapnia Qualified Code(s): J96.21 - Acute and chronic respiratory failure with hypoxia Is this a current diagnosis for this admission?: YesPlan: trach today needs LTAC (2) COPD (chronic obstructive pulmonary disease) Qualifiers: COPD type: COPD with acute exacerbation Qualified Code(s): J44.1 - Chronic obstructive pulmonary disease with (acute) exacerbation Is this a current diagnosis for this admission?: YesPlan: Continue current bronchodilator therapy (3) CHF (congestive heart failure) Qualifiers: Congestive heart failure type: unspecified congestive heart failure type Congestive heart failure chronicity: unspecified congestive heart failure chronicity Qualified Code(s): I50.9 - Heart failure, unspecified Is this a current diagnosis for this admission?: YesPlan: has been diuresing well - Time Critical Time spent with patient: 25-34 minutes - 30 min
[2016-04-28] MEDS: PROPOFOL 100 ML IV PRN ×12 (00:54→23:00)
[2016-04-28] MEDS: IPRATROPIUM/ALBUTEROL 0.5-2.5 MG/3 ML AMPUL NEB SCH ×4 (02:24→20:00)
[2016-04-28] MEDS ORDERED: LORAZEPAM INJ 2 MG/1 ML VIAL ONE (02:24)
[2016-04-28] MEDS: IBUPROFEN 800 MG in NORMAL SALINE 250 ML IV PRN (02:26)
[2016-04-28] MEDS: NORMAL SALINE 1000 ML 1,000 ML IV PRN ×4 (02:26→21:42)
[2016-04-28 04:37] LABS: ABSOLUTE EOSINOPHILS # (AUTO) 0.2 10^3/uL (0.0-0.6); ABSOLUTE LYMPHOCYTES (AUTO) 0.8 10^3/uL (0.5-4.7); ABSOLUTE MONOCYTES (AUTO) 0.7 10^3/uL (0.1-1.4); BASOPHILS % (AUTO) 0.3 % (0-2); EOSINOPHILS % (AUTO) 2.4 % (0-6); HEMATOCRIT 40.7 % (37.9-51.0); HGB HCT DIFFERENCE -1.7; LYMPHOCYTES % (AUTO) 10.1 % (13-45); MEAN CORPUSCULAR HEMOGLOBIN 30.2 pg (27.0-33.4); MEAN CORPUSCULAR HGB CONC 31.9 g/dL (32.0-36.0); MEAN CORPUSCULAR VOLUME 95 fl (80-97); MONOCYTES % (AUTO) 8.8 % (3-13); RED BLOOD COUNT 4.29 10^6/uL (4.35-5.55); SEGMENTED NEUTROPHILS % (AUTO) 78.4 % (42-78); WHITE BLOOD COUNT 7.7 10^3/uL (4.0-10.5)
[2016-04-28] MEDS: LORAZEPAM INJ 2 MG/1 ML VIAL IV PRN ×2 (04:37→18:00)
[2016-04-28 04:52] LABS: PROTHROMBIN TIME 14.6 SEC (11.4-15.4)
[2016-04-28 04:53] LABS: ANION GAP 10 (5-19); BLOOD UREA NITROGEN 26 mg/dL (7-20); CALCIUM 8.3 mg/dL (8.4-10.2); CARBON DIOXIDE 28 mmol/L (22-30); CHLORIDE 105 mmol/L (98-107); CREATININE RESULT 0.76 mg/dL (0.52-1.25); GLUCOSE 80 mg/dL (75-110); MAGNESIUM 1.8 mg/dL (1.6-2.3); PARTIAL THROMBOPLASTIN TIME 29.7 SEC (23.5-35.8); POTASSIUM 3.4 mmol/L (3.6-5.0); SODIUM 142.7 mmol/L (137-145)
[2016-04-28 04:56] LABS: ARTERIAL BLOOD BASE EXCESS 4.7 mmol/L; ARTERIAL BLOOD O2 SATURATION 95.1 % (94-98)
[2016-04-28] MEDS: ENOXAPARIN SODIUM INJ 40 MG/0.4 ML DISP.SYRIN SUBCUT SCH (08:48)
[2016-04-28] MEDS: METFORMIN HCL 500 MG TABLET NG SCH (08:48)
[2016-04-28] MEDS ORDERED: POTASSIUM CHLORIDE 20 MEQ/50 ML RTU IV ONE (10:30)
[2016-04-28] MEDS: FUROSEMIDE INJ/PF 20 MG/2 ML SDV IV SCH ×2 (10:49→21:42)
[2016-04-28] MEDS: FAMOTIDINE INJ/PF 20 MG/2 ML SDV IV SCH ×2 (10:49→21:42)
[2016-04-28] MEDS: RISPERIDONE 1 MG TABLET NG SCH ×2 (10:51→21:42)
[2016-04-28] MEDS: PREDNISONE 20 MG TABLET NG SCH (10:51)
[2016-04-28] MEDS: ASPIRIN 81 MG TABLET, CHEWABLE NG SCH (10:56)
[2016-04-28] MEDS: FLUTICASONE NASAL SPRAY 50 MCG/SPRY 120 SPRAY/16 GM NASL SCH (11:14)
[2016-04-28] MEDS: POTASSI CL 20 MEQ/50 ML RIDER 20 MEQ/50 ML RTUPB IV SCH ×2 (13:59→17:21)
--- NOTE | 2016-04-28 17:13 | PDOC PROGRESS REPORT ---
Subjective Progress Note for:: 04/27/16 Subjective:: Patient is sedated on mechanical ventilation with tracheostomy Physical Exam Vital Signs: Temp Pulse Resp BP Pulse Ox 99.0 F 69 16 123/62 92 04/28/16 14:41 04/28/16 14:10 04/28/16 14:41 04/28/16 14:41 04/28/16 16:07 Intake & Output 04/27/16 04/28/16 04/29/16 06:59 06:59 06:59 Intake Total 2780 3536 50 Output Total 2310 3130 1275 Balance 470 406 -1225 Weight 142.1 kg 143.1 kg General appearance: PRESENT: morbidly obese Eye exam: PRESENT: PERRLA Respiratory exam: PRESENT: clear to auscultation coty Cardiovascular exam: PRESENT: +S1, +S2 GI/Abdominal exam: PRESENT: soft Neurological exam: PRESENT: other - Sedated Results Laboratory Results: 04/28/16 04:17 04/28/16 04:17 04/28/16 04/28/16 04/28/16 04:17 04:17 04:45 WBC 7.7 RBC 4.29 L Hgb 13.0 L Hct 40.7 MCV 95 MCH 30.2 MCHC 31.9 L RDW 16.0 H Plt Count 138 L Seg Neutrophils % 78.4 H Lymphocytes % 10.1 L Monocytes % 8.8 Eosinophils % 2.4 Basophils % 0.3 Absolute Neutrophils 6.0 Absolute Lymphocytes 0.8 Absolute Monocytes 0.7 Absolute Eosinophils 0.2 Absolute Basophils 0.0 Carbonic Acid 1.33 HCO3/H2CO3 Ratio 22:1 ABG pH 7.44 ABG pCO2 44.2 ABG pO2 72.9 L ABG HCO3 29.5 H ABG O2 Saturation 95.1 ABG Base Excess 4.7 FiO2 35% Sodium 142.7 Potassium 3.4 L Chloride 105 Carbon Dioxide 28 Anion Gap 10 BUN 26 H Creatinine 0.76 Est GFR ( Amer) > 60 Est GFR (Non-Af Amer) > 60 Glucose 80 Calcium 8.3 L Magnesium 1.8 04/25/16 04/25/16 15:20 15:20 Creatine Kinase 31 L CK-MB (CK-2) < 0.22 Troponin I < 0.012 Impressions: KUB X-Ray 04/27/16 00:00 IMPRESSION: Tip of the NG tube is now in the body of the stomach. Chest X-Ray 04/28/16 05:30 IMPRESSION: 1. Support tubes and lines as above. 2. Layering bilateral pleural effusions with adjacent atelectasis. Assessment & Plan - Diagnosis (1) Acute and chronic respiratory failure ([id number]) Qualifiers: Respiratory failure complication: hypoxia and hypercapnia Qualified Code(s): J96.21 - Acute and chronic respiratory failure with hypoxia Is this a current diagnosis for this admission?: Yes (2) Type 2 diabetes mellitus Qualifiers: Diabetes mellitus complication status: with neurologic complications Diabetes mellitus complication detail: with polyneuropathy Diabetes mellitus skilled nursing insulin use: with long term care social worker use Qualified Code(s): E11.42 - Type 2 diabetes mellitus with diabetic polyneuropathy; Z79.4 - snf (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 insulin Is this a current diagnosis for this admission?: Yes (3) Morbid obesity with BMI of 40.0-44.9, adult Is this a current diagnosis for this admission?: Yes (4) Swelling of left lower extremity Is this a current diagnosis for this admission?: Yes (5) Tobacco abuse Is this a current diagnosis for this admission?: Yes (6) Paroxysmal supraventricular tachycardia Is this a current diagnosis for this admission?: Yes
--- NOTE | 2016-04-28 17:17 | PDOC PROGRESS REPORT ---
Subjective Progress Note for:: 04/28/16 Subjective:: Patient remains intubated on mechanical ventilation Physical Exam Vital Signs: Temp Pulse Resp BP Pulse Ox 99.0 F 69 16 123/62 92 04/28/16 14:41 04/28/16 14:10 04/28/16 14:41 04/28/16 14:41 04/28/16 16:07 Intake & Output 04/27/16 04/28/16 04/29/16 06:59 06:59 06:59 Intake Total 2780 3536 50 Output Total 2310 3130 1275 Balance 470 406 -1225 Weight 142.1 kg 143.1 kg General appearance: PRESENT: morbidly obese Eye exam: PRESENT: PERRLA Respiratory exam: PRESENT: clear to auscultation coty Cardiovascular exam: PRESENT: +S1, +S2 GI/Abdominal exam: PRESENT: soft Results Laboratory Results: 04/28/16 04:17 04/28/16 04:17 04/28/16 04/28/16 04/28/16 04:17 04:17 04:45 WBC 7.7 RBC 4.29 L Hgb 13.0 L Hct 40.7 MCV 95 MCH 30.2 MCHC 31.9 L RDW 16.0 H Plt Count 138 L Seg Neutrophils % 78.4 H Lymphocytes % 10.1 L Monocytes % 8.8 Eosinophils % 2.4 Basophils % 0.3 Absolute Neutrophils 6.0 Absolute Lymphocytes 0.8 Absolute Monocytes 0.7 Absolute Eosinophils 0.2 Absolute Basophils 0.0 Carbonic Acid 1.33 HCO3/H2CO3 Ratio 22:1 ABG pH 7.44 ABG pCO2 44.2 ABG pO2 72.9 L ABG HCO3 29.5 H ABG O2 Saturation 95.1 ABG Base Excess 4.7 FiO2 35% Sodium 142.7 Potassium 3.4 L Chloride 105 Carbon Dioxide 28 Anion Gap 10 BUN 26 H Creatinine 0.76 Est GFR ( Amer) > 60 Est GFR (Non-Af Amer) > 60 Glucose 80 Calcium 8.3 L Magnesium 1.8 04/25/16 04/25/16 15:20 15:20 Creatine Kinase 31 L CK-MB (CK-2) < 0.22 Troponin I < 0.012 Impressions: KUB X-Ray 04/27/16 00:00 IMPRESSION: Tip of the NG tube is now in the body of the stomach. Chest X-Ray 04/28/16 05:30 IMPRESSION: 1. Support tubes and lines as above. 2. Layering bilateral pleural effusions with adjacent atelectasis. Assessment & Plan - Diagnosis (1) Acute and chronic respiratory failure ([id number]) Qualifiers: Respiratory failure complication: hypoxia and hypercapnia Qualified Code(s): J96.21 - Acute and chronic respiratory failure with hypoxia Is this a current diagnosis for this admission?: Yes (2) Type 2 diabetes mellitus Qualifiers: Diabetes mellitus complication status: with neurologic complications Diabetes mellitus complication detail: with polyneuropathy Diabetes mellitus moth exterminator insulin use: with intermediate use Qualified Code(s): E11.42 - Type 2 diabetes mellitus with diabetic polyneuropathy; Z79.4 - terminal superintendent (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 insulin Is this a current diagnosis for this admission?: Yes (3) Morbid obesity with BMI of 40.0-44.9, adult Is this a current diagnosis for this admission?: Yes (4) Swelling of left lower extremity Is this a current diagnosis for this admission?: Yes (5) Tobacco abuse Is this a current diagnosis for this admission?: Yes (6) Paroxysmal supraventricular tachycardia Is this a current diagnosis for this admission?: Yes
[2016-04-29] MEDS: PROPOFOL 100 ML IV PRN ×8 (01:21→21:14)
[2016-04-29] MEDS: IPRATROPIUM/ALBUTEROL 0.5-2.5 MG/3 ML AMPUL NEB SCH ×4 (02:23→20:22)
[2016-04-29 05:03] LABS: ARTERIAL BLOOD BASE EXCESS 2.9 mmol/L; ARTERIAL BLOOD O2 SATURATION 95.3 % (94-98)
[2016-04-29 05:08] LABS: ABSOLUTE EOSINOPHILS # (AUTO) 0.1 10^3/uL (0.0-0.6); ABSOLUTE LYMPHOCYTES (AUTO) 0.7 10^3/uL (0.5-4.7); ABSOLUTE MONOCYTES (AUTO) 0.7 10^3/uL (0.1-1.4); ABSOLUTE NEUT (AUTO) 4.9 10^3/uL (1.7-8.2); BASOPHILS % (AUTO) 0.3 % (0-2); HEMOGLOBIN 12.5 g/dL (13.5-17.0); HGB HCT DIFFERENCE -0.5; LYMPHOCYTES % (AUTO) 11.3 % (13-45); MEAN CORPUSCULAR HEMOGLOBIN 30.8 pg (27.0-33.4); MEAN CORPUSCULAR VOLUME 94 fl (80-97); MONOCYTES % (AUTO) 10.9 % (3-13); RED BLOOD COUNT 4.06 10^6/uL (4.35-5.55); RED CELL DISTRIBUTION WIDTH 15.8 % (11.5-14.0); SEGMENTED NEUTROPHILS % (AUTO) 75.5 % (42-78); WHITE BLOOD COUNT 6.5 10^3/uL (4.0-10.5)
[2016-04-29 05:27] LABS: ANION GAP 8 (5-19); BLOOD UREA NITROGEN 24 mg/dL (7-20); CALCIUM 8.3 mg/dL (8.4-10.2); CARBON DIOXIDE 29 mmol/L (22-30); CHLORIDE 104 mmol/L (98-107); CREATININE RESULT 0.67 mg/dL (0.52-1.25); GLUCOSE 93 mg/dL (75-110); MAGNESIUM 1.9 mg/dL (1.6-2.3); POTASSIUM 3.6 mmol/L (3.6-5.0)
[2016-04-29] MEDS: NORMAL SALINE 1000 ML 1,000 ML IV PRN ×2 (06:13→14:37)
[2016-04-29] MEDS: ENOXAPARIN SODIUM INJ 40 MG/0.4 ML DISP.SYRIN SUBCUT SCH (07:58)
[2016-04-29] MEDS: FAMOTIDINE INJ/PF 20 MG/2 ML SDV IV SCH ×2 (07:59→21:13)
[2016-04-29] MEDS: METFORMIN HCL 500 MG TABLET NG SCH (07:59)
[2016-04-29] MEDS: LOSARTAN POTASSIUM 50 MG TABLET NG SCH (08:00)
[2016-04-29] MEDS: PREDNISONE 20 MG TABLET NG SCH (08:00)
[2016-04-29] MEDS: ASPIRIN 81 MG TABLET, CHEWABLE NG SCH (08:00)
[2016-04-29] MEDS: FUROSEMIDE INJ/PF 20 MG/2 ML SDV IV SCH ×2 (08:00→21:13)
[2016-04-29] MEDS: RISPERIDONE 1 MG TABLET NG SCH ×2 (08:01→21:13)
[2016-04-29] MEDS: FLUTICASONE NASAL SPRAY 50 MCG/SPRY 120 SPRAY/16 GM NASL SCH (09:08)
--- NOTE | 2016-04-29 18:22 | PDOC PROGRESS REPORT ---
Subjective Progress Note for:: 04/29/16 Subjective:: Patient is sedated on mechanical ventilation Physical Exam Vital Signs: Temp Pulse Resp BP Pulse Ox 98.0 F 69 16 139/65 H 95 04/29/16 18:01 04/29/16 13:31 04/29/16 18:01 04/29/16 18:01 04/29/16 18:01 Intake & Output 04/28/16 04/29/16 04/30/16 06:59 06:59 06:59 Intake Total 3536 3829 1918 Output Total 3135 4125 2260 Balance 406 -296 -342 Weight 143.1 kg 143 kg General appearance: PRESENT: no acute distress Cardiovascular exam: PRESENT: +S1, +S2 GI/Abdominal exam: PRESENT: soft Neurological exam: PRESENT: alert Results Laboratory Results: 04/29/16 04:45 04/29/16 04:45 04/29/16 04/29/16 04/29/16 04:45 04:45 04:45 WBC 6.5 RBC 4.06 L Hgb 12.5 L Hct 38.0 MCV 94 MCH 30.8 MCHC 33.0 RDW 15.8 H Plt Count 172 Seg Neutrophils % 75.5 Lymphocytes % 11.3 L Monocytes % 10.9 Eosinophils % 2.0 Basophils % 0.3 Absolute Neutrophils 4.9 Absolute Lymphocytes 0.7 Absolute Monocytes 0.7 Absolute Eosinophils 0.1 Absolute Basophils 0.0 Carbonic Acid 1.23 HCO3/H2CO3 Ratio 22:1 ABG pH 7.44 ABG pCO2 40.9 ABG pO2 73.7 L ABG HCO3 27.2 H ABG O2 Saturation 95.3 ABG Base Excess 2.9 FiO2 35% Sodium 141.0 Potassium 3.6 Chloride 104 Carbon Dioxide 29 Anion Gap 8 BUN 24 H Creatinine 0.67 Est GFR ( Amer) > 60 Est GFR (Non-Af Amer) > 60 Glucose 93 Calcium 8.3 L Magnesium 1.9 04/25/16 04/25/16 15:20 15:20 Creatine Kinase 31 L CK-MB (CK-2) < 0.22 Troponin I < 0.012 Impressions: KUB X-Ray 04/27/16 00:00 IMPRESSION: Tip of the NG tube is now in the body of the stomach. Chest X-Ray 04/29/16 06:00 IMPRESSION: 1. Support tubes and lines as above. 2. Bibasilar airspace opacities likely representing combination of layering effusions with atelectasis/infiltrate. Overall appearance suggests is not significantly changed in comparison the prior day's study. Assessment & Plan - Diagnosis (1) Acute and chronic respiratory failure ([id number]) Qualifiers: Respiratory failure complication: hypoxia and hypercapnia Qualified Code(s): J96.21 - Acute and chronic respiratory failure with hypoxia Is this a current diagnosis for this admission?: Yes (2) Type 2 diabetes mellitus Qualifiers: Diabetes mellitus complication status: with neurologic complications Diabetes mellitus complication detail: with polyneuropathy Diabetes mellitus residential insulin use: with terminal superintendent use Qualified Code(s): E11.42 - Type 2 diabetes mellitus with diabetic polyneuropathy; Z79.4 - terminal superintendent (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 insulin Is this a current diagnosis for this admission?: Yes (3) Morbid obesity with BMI of 40.0-44.9, adult Is this a current diagnosis for this admission?: Yes (4) Swelling of left lower extremity Is this a current diagnosis for this admission?: Yes (5) Tobacco abuse Is this a current diagnosis for this admission?: Yes (6) Paroxysmal supraventricular tachycardia Is this a current diagnosis for this admission?: Yes
[2016-04-30] MEDS: NORMAL SALINE 1000 ML 1,000 ML IV PRN ×3 (00:27→21:47)
[2016-04-30] MEDS: PROPOFOL 100 ML IV PRN ×9 (00:28→23:59)
[2016-04-30] MEDS: IPRATROPIUM/ALBUTEROL 0.5-2.5 MG/3 ML AMPUL NEB SCH ×4 (02:02→20:29)
[2016-04-30 04:57] LABS: HEMATOCRIT 38.4 % (37.9-51.0); HEMOGLOBIN 12.3 g/dL (13.5-17.0); HGB HCT DIFFERENCE -1.5; MEAN CORPUSCULAR VOLUME 94 fl (80-97); RED CELL DISTRIBUTION WIDTH 15.7 % (11.5-14.0); WHITE BLOOD COUNT 7.5 10^3/uL (4.0-10.5)
[2016-04-30 05:31] LABS: APPEARANCE,URINE SLIGHTLY-CLOUDY; BILIRUBIN,URINE NEGATIVE (NEGATIVE); GLUCOSE, URINE NEGATIVE (NEGATIVE); KETONES,URINE NEGATIVE (NEGATIVE); LEUKOCYTE ESTERASE,URINE NEGATIVE (NEGATIVE); NITRITE,URINE NEGATIVE (NEGATIVE); PROTEIN,URINE NEGATIVE (NEGATIVE); URINE SPECIFIC GRAVITY 1.026; UROBILINOGEN,URINE NEGATIVE mg/dL (<2.0)
[2016-04-30 07:47] LABS: ARTERIAL BLOOD BASE EXCESS 4.2 mmol/L; ARTERIAL BLOOD O2 SATURATION 94.9 % (94-98)
[2016-04-30] MEDS: ENOXAPARIN SODIUM INJ 40 MG/0.4 ML DISP.SYRIN SUBCUT SCH (08:12)
[2016-04-30] MEDS: METFORMIN HCL 500 MG TABLET NG SCH (09:07)
[2016-04-30] MEDS: LOSARTAN POTASSIUM 50 MG TABLET NG SCH (09:07)
[2016-04-30] MEDS: ASPIRIN 81 MG TABLET, CHEWABLE NG SCH (09:07)
[2016-04-30] MEDS: FAMOTIDINE INJ/PF 20 MG/2 ML SDV IV SCH ×2 (09:08→21:13)
[2016-04-30] MEDS: FUROSEMIDE INJ/PF 20 MG/2 ML SDV IV SCH ×2 (09:08→21:13)
[2016-04-30] MEDS: RISPERIDONE 1 MG TABLET NG SCH ×2 (09:09→21:12)
[2016-04-30] MEDS: FLUTICASONE NASAL SPRAY 50 MCG/SPRY 120 SPRAY/16 GM NASL SCH (09:09)
[2016-04-30] MEDS: PREDNISONE 20 MG TABLET NG SCH (09:58)
[2016-04-30] MEDS: IBUPROFEN 800 MG in NORMAL SALINE 250 ML IV PRN ×2 (11:34→22:48)
[2016-04-30] MEDS: ALPRAZOLAM 0.5 MG TABLET NG PRN ×2 (11:34→22:48)
[2016-05-01] MEDS: IPRATROPIUM/ALBUTEROL 0.5-2.5 MG/3 ML AMPUL NEB SCH ×4 (02:28→19:51)
[2016-05-01] MEDS: PROPOFOL 100 ML IV PRN ×6 (02:41→23:03)
[2016-05-01 04:19] LABS: ABSOLUTE EOSINOPHILS # (AUTO) 0.1 10^3/uL (0.0-0.6); ABSOLUTE LYMPHOCYTES (AUTO) 0.8 10^3/uL (0.5-4.7); ABSOLUTE MONOCYTES (AUTO) 0.6 10^3/uL (0.1-1.4); ABSOLUTE NEUT (AUTO) 3.8 10^3/uL (1.7-8.2); BASOPHILS % (AUTO) 0.7 % (0-2); HEMATOCRIT 39.7 % (37.9-51.0); HEMOGLOBIN 12.7 g/dL (13.5-17.0); HGB HCT DIFFERENCE -1.6; LYMPHOCYTES % (AUTO) 15.6 % (13-45); MEAN CORPUSCULAR HGB CONC 32.1 g/dL (32.0-36.0); MEAN CORPUSCULAR VOLUME 93 fl (80-97); MONOCYTES % (AUTO) 11.6 % (3-13); RED BLOOD COUNT 4.25 10^6/uL (4.35-5.55); RED CELL DISTRIBUTION WIDTH 15.7 % (11.5-14.0); SEGMENTED NEUTROPHILS % (AUTO) 71.1 % (42-78); WHITE BLOOD COUNT 5.3 10^3/uL (4.0-10.5)
[2016-05-01 04:23] LABS: PROTHROMBIN TIME 13.8 SEC (11.4-15.4)
[2016-05-01 04:24] LABS: PARTIAL THROMBOPLASTIN TIME 34.8 SEC (23.5-35.8)
[2016-05-01 04:27] LABS: ARTERIAL BLOOD BASE EXCESS 4.4 mmol/L; ARTERIAL BLOOD O2 SATURATION 95.2 % (94-98)
[2016-05-01 04:51] LABS: ALANINE AMINOTRANSFERASE 39 U/L (21-72); ALBUMIN 2.9 g/dL (3.5-5.0); ALKALINE PHOSPHATASE 37 U/L (38-126); ANION GAP 9 (5-19); ASPARTATE AMINO TRANSFERASE 15 U/L (17-59); BILIRUBIN,TOTAL 0.7 mg/dL (0.2-1.3); BLOOD UREA NITROGEN 26 mg/dL (7-20); CALCIUM 8.8 mg/dL (8.4-10.2); CARBON DIOXIDE 28 mmol/L (22-30); CHLORIDE 107 mmol/L (98-107); CREATININE RESULT 0.72 mg/dL (0.52-1.25); GLUCOSE 91 mg/dL (75-110); POTASSIUM 3.8 mmol/L (3.6-5.0); SODIUM 143.6 mmol/L (137-145)
[2016-05-01] MEDS: METFORMIN HCL 500 MG TABLET NG SCH (08:22)
[2016-05-01] MEDS: ENOXAPARIN SODIUM INJ 40 MG/0.4 ML DISP.SYRIN SUBCUT SCH (08:22)
[2016-05-01] MEDS: NORMAL SALINE 1000 ML 1,000 ML IV PRN ×2 (09:29→19:48)
[2016-05-01] MEDS: RISPERIDONE 1 MG TABLET NG SCH ×2 (09:43→21:02)
[2016-05-01] MEDS: FAMOTIDINE INJ/PF 20 MG/2 ML SDV IV SCH ×2 (09:43→21:02)
[2016-05-01] MEDS: FUROSEMIDE INJ/PF 20 MG/2 ML SDV IV SCH ×2 (09:43→21:02)
[2016-05-01] MEDS: LOSARTAN POTASSIUM 50 MG TABLET NG SCH (09:44)
[2016-05-01] MEDS: ASPIRIN 81 MG TABLET, CHEWABLE NG SCH (09:44)
[2016-05-01] MEDS: PREDNISONE 20 MG TABLET NG SCH (09:44)
[2016-05-01] MEDS: FLUTICASONE NASAL SPRAY 50 MCG/SPRY 120 SPRAY/16 GM NASL SCH (09:45)
--- NOTE | 2016-05-01 21:03 | PDOC PROGRESS REPORT ---
Subjective Progress Note for:: 04/30/16 Subjective:: Patient remained intubated on mechanical ventilation Physical Exam Vital Signs: Temp Pulse Resp BP Pulse Ox 99.0 F 95 14 146/68 H 94 04/30/16 17:01 04/30/16 13:54 04/30/16 17:01 04/30/16 17:01 04/30/16 17:01 Intake & Output 04/29/16 04/30/16 05/01/16 06:59 06:59 06:59 Intake Total 3823 4639 0763 Output Total 4122 0411 2055 Balance - Weight 143 kg 146.1 kg General appearance: PRESENT: no acute distress Eye exam: PRESENT: PERRLA Respiratory exam: PRESENT: clear to auscultation coty Cardiovascular exam: PRESENT: +S1, +S2 GI/Abdominal exam: PRESENT: soft Results Laboratory Results: 04/30/16 04:42 04/29/16 04:45 04/30/16 04/30/16 04/30/16 04:42 04:42 05:00 WBC 7.5 RBC 4.10 L Hgb 12.3 L Hct 38.4 MCV 94 MCH 30.0 MCHC 32.0 RDW 15.7 H Plt Count 172 Carbonic Acid HCO3/H2CO3 Ratio ABG pH ABG pCO2 ABG pO2 ABG HCO3 ABG O2 Saturation ABG Base Excess FiO2 Triglycerides 150 Urine Color YELLOW Urine Appearance SLIGHTLY-CLOUDY Urine pH 5.0 Ur Specific [place] 1.026 Urine Protein NEGATIVE Urine Glucose (UA) NEGATIVE Urine Ketones NEGATIVE Urine Blood NEGATIVE Urine Nitrite NEGATIVE Ur Leukocyte Esterase NEGATIVE Urine WBC (Auto) 1 Urine RBC (Auto) 0 04/30/16 07:36 WBC RBC Hgb Hct MCV MCH MCHC RDW Plt Count Carbonic Acid 1.23 HCO3/H2CO3 Ratio 23:1 ABG pH 7.46 H ABG pCO2 40.8 ABG pO2 69.9 L ABG HCO3 28.4 H ABG O2 Saturation 94.9 ABG Base Excess 4.2 FiO2 35% Triglycerides Urine Color Urine Appearance Urine pH Ur Specific [place] Urine Protein Urine Glucose (UA) Urine Ketones Urine Blood Urine Nitrite Ur Leukocyte Esterase Urine WBC (Auto) Urine RBC (Auto) 04/25/16 04/25/16 15:20 15:20 Creatine Kinase 31 L CK-MB (CK-2) < 0.22 Troponin I < 0.012 Impressions: KUB X-Ray 04/27/16 00:00 IMPRESSION: Tip of the NG tube is now in the body of the stomach. Chest X-Ray 04/29/16 06:00 IMPRESSION: 1. Support tubes and lines as above. 2. Bibasilar airspace opacities likely representing combination of layering effusions with atelectasis/infiltrate. Overall appearance suggests is not significantly changed in comparison the prior day's study. Assessment & Plan - Diagnosis (1) Acute and chronic respiratory failure ([id number]) Qualifiers: Respiratory failure complication: hypoxia and hypercapnia Qualified Code(s): J96.21 - Acute and chronic respiratory failure with hypoxia Is this a current diagnosis for this admission?: Yes (2) Type 2 diabetes mellitus Qualifiers: Diabetes mellitus complication status: with neurologic complications Diabetes mellitus complication detail: with polyneuropathy Diabetes mellitus senior living insulin use: with long term acute care registered nurse use Qualified Code(s): E11.42 - Type 2 diabetes mellitus with diabetic polyneuropathy; Z79.4 - care home (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 insulin Is this a current diagnosis for this admission?: Yes (3) Morbid obesity with BMI of 40.0-44.9, adult Is this a current diagnosis for this admission?: Yes (4) Swelling of left lower extremity Is this a current diagnosis for this admission?: Yes (5) Tobacco abuse Is this a current diagnosis for this admission?: Yes (6) Paroxysmal supraventricular tachycardia Is this a current diagnosis for this admission?: Yes
[2016-05-02] MEDS: IPRATROPIUM/ALBUTEROL 0.5-2.5 MG/3 ML AMPUL NEB SCH ×4 (01:31→20:55)
[2016-05-02] MEDS: PROPOFOL 100 ML IV PRN ×6 (02:46→20:25)
[2016-05-02] MEDS: NORMAL SALINE 1000 ML 1,000 ML IV PRN ×2 (04:42→15:10)
[2016-05-02 05:01] LABS: ARTERIAL BLOOD BASE EXCESS 3.2 mmol/L
[2016-05-02 05:16] LABS: APPEARANCE,URINE SLIGHTLY-CLOUDY; BILIRUBIN,URINE NEGATIVE (NEGATIVE); GLUCOSE, URINE NEGATIVE (NEGATIVE); KETONES,URINE NEGATIVE (NEGATIVE); LEUKOCYTE ESTERASE,URINE NEGATIVE (NEGATIVE); NITRITE,URINE NEGATIVE (NEGATIVE); PROTEIN,URINE NEGATIVE (NEGATIVE); URINE SPECIFIC GRAVITY 1.025; UROBILINOGEN,URINE NEGATIVE mg/dL (<2.0)
[2016-05-02 08:46] LABS: HEMATOCRIT 39.1 % (37.9-51.0); HEMOGLOBIN 12.5 g/dL (13.5-17.0); HGB HCT DIFFERENCE -1.6; MEAN CORPUSCULAR HEMOGLOBIN 29.7 pg (27.0-33.4); MEAN CORPUSCULAR HGB CONC 31.9 g/dL (32.0-36.0); MEAN CORPUSCULAR VOLUME 93 fl (80-97); RED BLOOD COUNT 4.19 10^6/uL (4.35-5.55); RED CELL DISTRIBUTION WIDTH 15.7 % (11.5-14.0); WHITE BLOOD COUNT 7.7 10^3/uL (4.0-10.5)
[2016-05-02 09:09] LABS: ANION GAP 9 (5-19); BLOOD UREA NITROGEN 25 mg/dL (7-20); CARBON DIOXIDE 28 mmol/L (22-30); CHLORIDE 107 mmol/L (98-107); CREATININE RESULT 0.61 mg/dL (0.52-1.25); GLUCOSE 93 mg/dL (75-110); MAGNESIUM 1.9 mg/dL (1.6-2.3); POTASSIUM 3.3 mmol/L (3.6-5.0); SODIUM 143.9 mmol/L (137-145)
[2016-05-02] MEDS: METFORMIN HCL 500 MG TABLET NG SCH (09:18)
[2016-05-02] MEDS: ENOXAPARIN SODIUM INJ 40 MG/0.4 ML DISP.SYRIN SUBCUT SCH (09:18)
[2016-05-02] MEDS: RISPERIDONE 1 MG TABLET NG SCH ×2 (09:52→21:31)
[2016-05-02] MEDS: FAMOTIDINE INJ/PF 20 MG/2 ML SDV IV SCH ×2 (09:52→21:31)
[2016-05-02] MEDS: LOSARTAN POTASSIUM 50 MG TABLET NG SCH (09:52)
[2016-05-02] MEDS: FUROSEMIDE INJ/PF 20 MG/2 ML SDV IV SCH ×2 (09:52→21:32)
[2016-05-02] MEDS: PREDNISONE 20 MG TABLET NG SCH (09:53)
[2016-05-02] MEDS: ASPIRIN 81 MG TABLET, CHEWABLE NG SCH (09:53)
[2016-05-02] MEDS: FLUTICASONE NASAL SPRAY 50 MCG/SPRY 120 SPRAY/16 GM NASL SCH (09:54)
--- NOTE | 2016-05-02 13:27 | PDOC TRANSFER SUMMARY ---
General Admission Date/PCP: 04/15/16 23:40 PHI STONE, Admission Date: 04/15/16 Transfer Date: 05/02/16 Resuscitation Status: Full Code - Transfer Diagnosis (1) Acute and chronic respiratory failure ([id number]) Is this a current diagnosis for this admission?: Yes (2) Type 2 diabetes mellitus Is this a current diagnosis for this admission?: Yes (3) Morbid obesity with BMI of 40.0-44.9, adult Is this a current diagnosis for this admission?: Yes (4) Swelling of left lower extremity Is this a current diagnosis for this admission?: Yes (5) Tobacco abuse Is this a current diagnosis for this admission?: Yes (6) Paroxysmal supraventricular tachycardia Is this a current diagnosis for this admission?: Yes - Transfer Medications Home Medications: Furosemide [Lasix 40 mg Tablet] 40 mg PO BID 04/16/16 Losartan Potassium [Cozaar 100 mg Tablet] 100 mg PO DAILY 04/16/16 Transfer Medications: Current Medications Albuterol (Ventolin 0.083% Neb 2.5 Mg/3 Ml Ampul) 2.5 mg NEB RTQ4HP PRN Stop: 05/16/16 09:32 Albuterol/Ipratropium (Duoneb 3 Ml Ampul) 3 ml NEB RTQ6 [facility] Stop: 05/16/16 09:44 Last Admin: 05/02/16 08:39 Dose: 3 ml Alprazolam (Xanax 0.5 Mg Tablet) 0.5 mg NG Q8HP PRN PRN Reason: ANXIETY Stop: 05/02/16 17:25 Last Admin: 04/30/16 22:48 Dose: 0.5 mg Aspirin (Aspirin 81 Mg Chewable Tablet) 81 mg NG DAILY IKER Stop: 05/16/16 09:59 Last Admin: 05/02/16 09:53 Dose: 81 mg Enoxaparin Sodium (Lovenox Inj 40 Mg/0.4 Ml Disp.Syrin) 40 mg SUBCUT QAM IKER Stop: 05/28/16 07:59 Last Admin: 05/02/16 09:18 Dose: 40 mg Famotidine (Pepcid Inj/Pf 20 Mg/2 Ml Sdv) 10 mg IV Q12 [facility] Stop: 05/18/16 09:59 Last Admin: 05/02/16 09:52 Dose: 10 mg Fluticasone Propionate (Flonase Nasal [place] 50 Mcg/[place] 16 Gm) 1 spray NASL DAILY IKER Stop: 05/16/16 09:59 Last Admin: 05/02/16 09:54 Dose: Not Given Furosemide (Lasix Inj/Pf 20 Mg/2 Ml Sdv) 20 mg IV Q12 IKER Stop: 05/18/16 09:59 Last Admin: 05/02/16 09:52 Dose: 20 mg Sodium Chloride (Nacl 0.9% 1000 Ml Iv Soln) 1,000 mls @ 100 mls/hr IV CONTINUOUS PRN PRN Reason: THIS MED IS NOT "PRN" Stop: 05/16/16 04:17 Last Admin: 05/02/16 04:42 Dose: 1,000 ml Ibuprofen 800 mg/ Sodium (Chloride) 250 mls @ 500 mls/hr IV Q8HP PRN PRN Reason: PAIN Stop: 05/24/16 19:08 Last Admin: 04/30/16 22:48 Dose: 800 mg Diltiazem HCl (Cardizem Rtu Inj 125 Mg-D5w 125 Ml Premix) 125 mg in 125 mls @ 0 mls/hr IV CONTINUOUS PRN; Protocol; Titrate PRN Reason: THIS MED IS NOT "PRN" Stop: 05/25/16 15:40 Propofol (Diprivan Rtu 1000 Mg/100 Ml Inf.Bottle) 100 mls @ 0 mls/hr IV CONTINUOUS PRN; Protocol; Titrate PRN Reason: THIS MED IS NOT "PRN" Stop: 05/26/16 06:09 Last Admin: 05/02/16 10:16 Dose: 100 ml Lorazepam (Ativan Inj 2 Mg/1 Ml Vial) 2 mg IV Q2HP PRN PRN Reason: SEDATION Stop: 05/05/16 03:12 Last Admin: 04/28/16 18:00 Dose: 2 mg Losartan Potassium (Cozaar 50 Mg Tablet) 100 mg NG DAILY IKER Stop: 05/16/16 09:59 Last Admin: 05/02/16 09:52 Dose: 100 mg Metformin HCl (Glucophage 500 Mg Tablet) 500 mg NG [id number] [facility] Stop: 05/16/16 07:59 Last Admin: 05/02/16 09:18 Dose: 500 mg Pharmacy Profile Note (Medication Communication Order) 1 each [facility] .NOTICE NR Stop: 05/16/16 04:29 Prednisone (Deltasone 20 Mg Tablet) 60 mg NG DAILY IKER Stop: 05/16/16 09:59 Last Admin: 05/02/16 09:53 Dose: 60 mg Risperidone (Risperdal 1 Mg Tablet) 2 mg NG Q12 [facility] Stop: 05/22/16 21:59 Last Admin: 05/02/16 09:52 Dose: 2 mg - Allergies Allergies/Adverse Reactions: No Known Allergies Allergy (Verified 04/15/16 22:19) Hospital Course Hospital Course: Patient 65-year-old with history of morbid obesity, chronic obstructive pulmonary disease, type II diabetes mellitus, tobacco abuse and dependence, he was admitted on 04/25/2016, that was a readmission before then. He was discharged on 04/14/2016 when he presented with acute COPD exacerbation and he was treated with IV Solu-Medrol and IV antibiotic with bronchodilators. The history was that when patient got back home, he went back smoking again and he be deteriorated very rapidly. He came to the emergency room within 24 hours of discharge , he was stuporous altered mental status. Initially, he is breathing was supported with noninvasive positive pressure ventilation, BiPAP, but his condition continued to decline and he was intubated in the emergency room. He was monitored in intensive care unit. He had episode of paroxysmal supraventricular tachycardia, rate control was achieved with intravenous Cardizem. Patient was ultimately extubated but he decompensated within 24 hours of extubation and ultimately a tracheostomy was placed and the plan is to transfer him to long-term acute care facility. Physical Exam Vital Signs: Temp Pulse Resp BP Pulse Ox 99.7 F 78 16 130/67 H 94 05/02/16 12:00 05/02/16 12:00 05/02/16 12:00 05/02/16 12:00 05/02/16 12:00 Intake & Output 05/01/16 05/02/16 05/03/16 06:59 06:59 06:59 Intake Total 3934 3962 Output Total 4500 9985 1100 Balance -566 587 -1100 Weight 144.8 kg 145.5 kg General appearance: PRESENT: no acute distress Head exam: PRESENT: atraumatic, normocephalic Respiratory exam: PRESENT: clear to auscultation coty Cardiovascular exam: PRESENT: RRR GI/Abdominal exam: PRESENT: normal bowel sounds, soft Rectal exam: PRESENT: deferred Extremities exam: PRESENT: full ROM Neurological exam: PRESENT: alert Psychiatric exam: PRESENT: appropriate affect, normal mood Skin exam: PRESENT: dry, intact, warm Results Laboratory Results: 05/02/16 08:33 05/02/16 08:33 05/02/16 05/02/16 05/02/16 04:45 04:45 08:33 WBC 7.7 RBC 4.19 L Hgb 12.5 L Hct 39.1 MCV 93 MCH 29.7 MCHC 31.9 L RDW 15.7 H Plt Count 206 Carbonic Acid 1.19 HCO3/H2CO3 Ratio 22:1 ABG pH 7.46 H ABG pCO2 39.7 ABG pO2 70.7 L ABG HCO3 27.3 H ABG O2 Saturation 95.0 ABG Base Excess 3.2 FiO2 35% Sodium Potassium Chloride Carbon Dioxide Anion Gap BUN Creatinine Est GFR ( Amer) Est GFR (Non-Af Amer) Glucose Calcium Magnesium Urine Color YELLOW Urine Appearance SLIGHTLY-CLOUDY Urine pH 5.0 Ur Specific [place] 1.025 Urine Protein NEGATIVE Urine Glucose (UA) NEGATIVE Urine Ketones NEGATIVE Urine Blood NEGATIVE Urine Nitrite NEGATIVE Ur Leukocyte Esterase NEGATIVE Urine WBC (Auto) 1 Urine RBC (Auto) 1 05/02/16 08:33 WBC RBC Hgb Hct MCV MCH MCHC RDW Plt Count Carbonic Acid HCO3/H2CO3 Ratio ABG pH ABG pCO2 ABG pO2 ABG HCO3 ABG O2 Saturation ABG Base Excess FiO2 Sodium 143.9 Potassium 3.3 L Chloride 107 Carbon Dioxide 28 Anion Gap 9 BUN 25 H Creatinine 0.61 Est GFR ( Amer) > 60 Est GFR (Non-Af Amer) > 60 Glucose 93 Calcium 9.0 Magnesium 1.9 Urine Color Urine Appearance Urine pH Ur Specific [place] Urine Protein Urine Glucose (UA) Urine Ketones Urine Blood Urine Nitrite Ur Leukocyte Esterase Urine WBC (Auto) Urine RBC (Auto) 04/25/16 04/25/16 15:20 15:20 Creatine Kinase 31 L CK-MB (CK-2) < 0.22 Troponin I < 0.012 Impressions: KUB X-Ray 04/27/16 00:00 IMPRESSION: Tip of the NG tube is now in the body of the stomach. Chest X-Ray 05/02/16 06:00 IMPRESSION: No significant interval change. Findings as noted above
[2016-05-03] MEDS: PROPOFOL 100 ML IV PRN ×8 (00:10→18:06)
[2016-05-03] MEDS: NORMAL SALINE 1000 ML 1,000 ML IV PRN ×2 (00:11→09:26)
[2016-05-03] MEDS: IPRATROPIUM/ALBUTEROL 0.5-2.5 MG/3 ML AMPUL NEB SCH ×3 (02:14→13:45)
[2016-05-03 05:57] LABS: ARTERIAL BLOOD O2 SATURATION 94.6 % (94-98)
--- NOTE | 2016-05-03 07:19 | PDOC PROGRESS REPORT ---
Subjective Progress Note for:: 04/28/16 Subjective:: plan as per sugery tracheostomy Physical Exam Vital Signs: Temp Pulse Resp BP Pulse Ox 99.7 F 78 14 99/57 L 96 04/28/16 07:39 04/28/16 09:02 04/28/16 09:02 04/28/16 07:39 04/28/16 09:02 Intake & Output 04/27/16 04/28/16 04/29/16 06:59 06:59 06:59 Intake Total 2780 3536 Output Total 2310 3130 110 Balance 470 406 -110 Weight 142.1 kg 143.1 kg General appearance: PRESENT: no acute distress, disheveled, morbidly obese Head exam: PRESENT: atraumatic, normocephalic Eye exam: PRESENT: conjunctiva pale Mouth exam: PRESENT: moist, tongue midline, other - fresh tracheostomy Neck exam: ABSENT: carotid bruit, JVD, lymphadenopathy, thyromegaly Respiratory exam: PRESENT: decreased breath sounds, prolonged expiratory phas, rhonchi, symmetrical, wheezes Cardiovascular exam: PRESENT: irregular rhythm Pulses: PRESENT: normal radial pulses GI/Abdominal exam: PRESENT: normal bowel sounds, soft. ABSENT: distended, guarding, mass, organolmegaly, rebound, tenderness Rectal exam: PRESENT: deferred Gentrourinary exam: PRESENT: indwelling catheter Extremities exam: PRESENT: pedal edema Skin exam: PRESENT: dry, warm Results Laboratory Results: 04/28/16 04:17 04/28/16 04:17 04/28/16 04/28/16 04/28/16 04:17 04:17 04:45 WBC 7.7 RBC 4.29 L Hgb 13.0 L Hct 40.7 MCV 95 MCH 30.2 MCHC 31.9 L RDW 16.0 H Plt Count 138 L Seg Neutrophils % 78.4 H Lymphocytes % 10.1 L Monocytes % 8.8 Eosinophils % 2.4 Basophils % 0.3 Absolute Neutrophils 6.0 Absolute Lymphocytes 0.8 Absolute Monocytes 0.7 Absolute Eosinophils 0.2 Absolute Basophils 0.0 Carbonic Acid 1.33 HCO3/H2CO3 Ratio 22:1 ABG pH 7.44 ABG pCO2 44.2 ABG pO2 72.9 L ABG HCO3 29.5 H ABG O2 Saturation 95.1 ABG Base Excess 4.7 FiO2 35% Sodium 142.7 Potassium 3.4 L Chloride 105 Carbon Dioxide 28 Anion Gap 10 BUN 26 H Creatinine 0.76 Est GFR ( Amer) > 60 Est GFR (Non-Af Amer) > 60 Glucose 80 Calcium 8.3 L Magnesium 1.8 04/25/16 04/25/16 15:20 15:20 Creatine Kinase 31 L CK-MB (CK-2) < 0.22 Troponin I < 0.012 Impressions: KUB X-Ray 04/27/16 00:00 IMPRESSION: Tip of the NG tube is now in the body of the stomach. Chest X-Ray 04/28/16 05:30 IMPRESSION: 1. Support tubes and lines as above. 2. Layering bilateral pleural effusions with adjacent atelectasis. Assessment & Plan - Diagnosis (1) Acute and chronic respiratory failure ([id number]) Qualifiers: Respiratory failure complication: hypoxia and hypercapnia Qualified Code(s): J96.21 - Acute and chronic respiratory failure with hypoxia Is this a current diagnosis for this admission?: YesPlan: needs LTAC (2) COPD (chronic obstructive pulmonary disease) Qualifiers: COPD type: COPD with acute exacerbation Qualified Code(s): J44.1 - Chronic obstructive pulmonary disease with (acute) exacerbation Is this a current diagnosis for this admission?: YesPlan: Continue current bronchodilator therapy supp O2 mechanical support (3) CHF (congestive heart failure) Qualifiers: Congestive heart failure type: unspecified congestive heart failure type Congestive heart failure chronicity: unspecified congestive heart failure chronicity Qualified Code(s): I50.9 - Heart failure, unspecified Is this a current diagnosis for this admission?: No - Time Critical Time spent with patient: 25-34 minutes - 30 min
--- NOTE | 2016-05-03 07:21 | PDOC PROGRESS REPORT ---
Subjective Progress Note for:: 04/30/16 Subjective:: trached sedated Physical Exam Vital Signs: Temp Pulse Resp BP Pulse Ox 99.4 F 91 14 133/61 H 92 04/30/16 09:01 04/30/16 07:53 04/30/16 09:01 04/30/16 09:01 04/30/16 09:01 Intake & Output 04/29/16 04/30/16 05/01/16 06:59 06:59 06:59 Intake Total 3824 3459 Output Total 4125 6667 150 Balance -296 -51 -150 Weight 143 kg 146.1 kg General appearance: PRESENT: no acute distress, disheveled, morbidly obese Head exam: PRESENT: atraumatic, normocephalic Eye exam: PRESENT: conjunctiva pale Mouth exam: PRESENT: moist, tongue midline, other - trach in place Neck exam: PRESENT: carotid bruit Respiratory exam: PRESENT: decreased breath sounds, prolonged expiratory phas, rhonchi, symmetrical, unlabored, wheezes Cardiovascular exam: PRESENT: irregular rhythm Pulses: PRESENT: normal radial pulses Rectal exam: PRESENT: deferred Gentrourinary exam: PRESENT: indwelling catheter Extremities exam: PRESENT: pedal edema, +1 edema Skin exam: PRESENT: dry, warm Results Laboratory Results: 04/30/16 04:42 04/29/16 04:45 04/30/16 04/30/16 04/30/16 04:42 04:42 05:00 WBC 7.5 RBC 4.10 L Hgb 12.3 L Hct 38.4 MCV 94 MCH 30.0 MCHC 32.0 RDW 15.7 H Plt Count 172 Carbonic Acid HCO3/H2CO3 Ratio ABG pH ABG pCO2 ABG pO2 ABG HCO3 ABG O2 Saturation ABG Base Excess FiO2 Triglycerides 150 Urine Color YELLOW Urine Appearance SLIGHTLY-CLOUDY Urine pH 5.0 Ur Specific [place] 1.026 Urine Protein NEGATIVE Urine Glucose (UA) NEGATIVE Urine Ketones NEGATIVE Urine Blood NEGATIVE Urine Nitrite NEGATIVE Ur Leukocyte Esterase NEGATIVE Urine WBC (Auto) 1 Urine RBC (Auto) 0 04/30/16 07:36 WBC RBC Hgb Hct MCV MCH MCHC RDW Plt Count Carbonic Acid 1.23 HCO3/H2CO3 Ratio 23:1 ABG pH 7.46 H ABG pCO2 40.8 ABG pO2 69.9 L ABG HCO3 28.4 H ABG O2 Saturation 94.9 ABG Base Excess 4.2 FiO2 35% Triglycerides Urine Color Urine Appearance Urine pH Ur Specific [place] Urine Protein Urine Glucose (UA) Urine Ketones Urine Blood Urine Nitrite Ur Leukocyte Esterase Urine WBC (Auto) Urine RBC (Auto) 04/25/16 04/25/16 15:20 15:20 Creatine Kinase 31 L CK-MB (CK-2) < 0.22 Troponin I < 0.012 Impressions: KUB X-Ray 04/27/16 00:00 IMPRESSION: Tip of the NG tube is now in the body of the stomach. Chest X-Ray 04/29/16 06:00 IMPRESSION: 1. Support tubes and lines as above. 2. Bibasilar airspace opacities likely representing combination of layering effusions with atelectasis/infiltrate. Overall appearance suggests is not significantly changed in comparison the prior day's study. Assessment & Plan - Diagnosis (1) Acute and chronic respiratory failure ([id number]) Qualifiers: Respiratory failure complication: hypoxia and hypercapnia Qualified Code(s): J96.21 - Acute and chronic respiratory failure with hypoxia Is this a current diagnosis for this admission?: YesPlan: needs LTAC (2) COPD (chronic obstructive pulmonary disease) Qualifiers: COPD type: COPD with acute exacerbation Qualified Code(s): J44.1 - Chronic obstructive pulmonary disease with (acute) exacerbation Is this a current diagnosis for this admission?: YesPlan: Continue current bronchodilator therapy supp O2 mechanical support (3) CHF (congestive heart failure) Qualifiers: Congestive heart failure type: unspecified congestive heart failure type Congestive heart failure chronicity: unspecified congestive heart failure chronicity Qualified Code(s): I50.9 - Heart failure, unspecified Is this a current diagnosis for this admission?: Yes
--- NOTE | 2016-05-03 07:25 | PDOC PROGRESS REPORT ---
Subjective Progress Note for:: 05/02/16 Subjective:: trached sedated Physical Exam Vital Signs: Temp Pulse Resp BP Pulse Ox 56.2 F L 81 14 104/61 94 05/03/16 06:01 05/03/16 02:00 05/03/16 06:01 05/03/16 06:01 05/03/16 06:01 Intake & Output 05/02/16 05/03/16 05/04/16 06:59 06:59 06:59 Intake Total 3968 3233 Output Total 3376 7968 Balance 587 -917 Weight 145.5 kg 143.7 kg General appearance: PRESENT: disheveled, morbidly obese Head exam: PRESENT: atraumatic, normocephalic Eye exam: PRESENT: conjunctiva pale Mouth exam: PRESENT: other - tracheostomy Neck exam: ABSENT: carotid bruit, JVD, lymphadenopathy, thyromegaly Respiratory exam: PRESENT: decreased breath sounds, prolonged expiratory phas, rhonchi, symmetrical, unlabored, wheezes Cardiovascular exam: PRESENT: irregular rhythm Pulses: PRESENT: normal radial pulses GI/Abdominal exam: PRESENT: normal bowel sounds, soft. ABSENT: distended, guarding, mass, organolmegaly, rebound, tenderness Rectal exam: PRESENT: deferred Gentrourinary exam: PRESENT: indwelling catheter Extremities exam: PRESENT: pedal edema Skin exam: PRESENT: dry, warm Results Laboratory Results: 05/02/16 08:33 05/02/16 08:33 05/02/16 05/02/16 05/03/16 08:33 08:33 04:13 WBC 7.7 RBC 4.19 L Hgb 12.5 L Hct 39.1 MCV 93 MCH 29.7 MCHC 31.9 L RDW 15.7 H Plt Count 206 Carbonic Acid HCO3/H2CO3 Ratio ABG pH ABG pCO2 ABG pO2 ABG HCO3 ABG O2 Saturation ABG Base Excess FiO2 Sodium 143.9 Potassium 3.3 L Chloride 107 Carbon Dioxide 28 Anion Gap 9 BUN 25 H Creatinine 0.61 Est GFR ( Amer) > 60 Est GFR (Non-Af Amer) > 60 Glucose 93 Calcium 9.0 Magnesium 1.9 Triglycerides 173 H 05/03/16 05:44 WBC RBC Hgb Hct MCV MCH MCHC RDW Plt Count Carbonic Acid 1.16 HCO3/H2CO3 Ratio 23:1 ABG pH 7.46 H ABG pCO2 38.4 ABG pO2 68.0 L ABG HCO3 26.8 H ABG O2 Saturation 94.6 ABG Base Excess 3.0 FiO2 35% Sodium Potassium Chloride Carbon Dioxide Anion Gap BUN Creatinine Est GFR ( Amer) Est GFR (Non-Af Amer) Glucose Calcium Magnesium Triglycerides 04/25/16 04/25/16 15:20 15:20 Creatine Kinase 31 L CK-MB (CK-2) < 0.22 Troponin I < 0.012 Impressions: KUB X-Ray 04/27/16 00:00 IMPRESSION: Tip of the NG tube is now in the body of the stomach. Assessment & Plan - Diagnosis (1) Acute and chronic respiratory failure ([id number]) Qualifiers: Respiratory failure complication: hypoxia and hypercapnia Qualified Code(s): J96.21 - Acute and chronic respiratory failure with hypoxia Is this a current diagnosis for this admission?: YesPlan: needs LTAC appears he will be placed in LTAC in am (2) COPD (chronic obstructive pulmonary disease) Qualifiers: COPD type: COPD with acute exacerbation Qualified Code(s): J44.1 - Chronic obstructive pulmonary disease with (acute) exacerbation Is this a current diagnosis for this admission?: YesPlan: Continue current bronchodilator therapy supp O2 mechanical support (3) CHF (congestive heart failure) Qualifiers: Congestive heart failure type: unspecified congestive heart failure type Congestive heart failure chronicity: unspecified congestive heart failure chronicity Qualified Code(s): I50.9 - Heart failure, unspecified Is this a current diagnosis for this admission?: Yes - Time Critical Time spent with patient: 35 or more minutes - 35 min
[2016-05-03] MEDS: METFORMIN HCL 500 MG TABLET NG SCH (07:47)
[2016-05-03] MEDS: ENOXAPARIN SODIUM INJ 40 MG/0.4 ML DISP.SYRIN SUBCUT SCH (07:49)
[2016-05-03] MEDS: POTASSI CL 20 MEQ/50 ML RIDER 50 ML IV SCH ×2 (07:51→09:29)
[2016-05-03] MEDS: FAMOTIDINE INJ/PF 20 MG/2 ML SDV IV SCH (09:26)
[2016-05-03] MEDS: ASPIRIN 81 MG TABLET, CHEWABLE NG SCH (09:27)
[2016-05-03] MEDS: PREDNISONE 20 MG TABLET NG SCH (09:27)
[2016-05-03] MEDS: LOSARTAN POTASSIUM 50 MG TABLET NG SCH (09:27)
[2016-05-03] MEDS: FUROSEMIDE INJ/PF 20 MG/2 ML SDV IV SCH (09:27)
[2016-05-03] MEDS: RISPERIDONE 1 MG TABLET NG SCH (09:28)
[2016-05-03] MEDS: FLUTICASONE NASAL SPRAY 50 MCG/SPRY 120 SPRAY/16 GM NASL SCH (09:30)
[2016-05-03 16:47] VITALS: BP 118/53
== END 2016-05-03 18:30 | DRG 4 ==
LOC: ER 19:44 → EH 23:40 → ICU 23:40 → UNDOADMIN 23:40 → ICU 04-16 03:35 → EH 04-16 03:35
PROVIDERS: ADMIT Internal Medicine; ATTEND Internal Medicine
PROC: 5A1955Z Respiratory Ventilation, Greater than 96 Consecutive Hours (ICD-10-PCS; principal; 2016-04-16)
PROC: 0BH17EZ Insertion of Endotracheal Airway into Trachea, Via Natural or Artificial Opening (ICD-10-PCS; 2016-04-16)
PROC: 0BH17EZ Insertion of Endotracheal Airway into Trachea, Via Natural or Artificial Opening (ICD-10-PCS; 2016-04-26)
PROC: 5A1955Z Respiratory Ventilation, Greater than 96 Consecutive Hours (ICD-10-PCS; 2016-04-26)
PROC: 0B110F4 Bypass Trachea to Cutaneous with Tracheostomy Device, Open Approach (ICD-10-PCS; 2016-04-27)
DX: J96.21 Acute and chronic respiratory failure with hypoxia (principal); I50.23 Acute on chronic systolic (congestive) heart failure; J44.1 Chronic obstructive pulmonary disease with (acute) exacerbation; E87.3 Alkalosis; Z68.42 Body mass index [BMI] 45.0-49.9, adult; I47.1 Supraventricular tachycardia; J96.22 Acute and chronic respiratory failure with hypercapnia; E11.42 Type 2 diabetes mellitus with diabetic polyneuropathy; M79.89 Other specified soft tissue disorders; E66.01 Morbid (severe) obesity due to excess calories; F32.9 Major depressive disorder, single episode, unspecified; F17.210 Nicotine dependence, cigarettes, uncomplicated; Z71.6 Tobacco abuse counseling; Z91.19 Patient's noncompliance with other medical treatment and regimen; Z99.81 Dependence on supplemental oxygen
CPT/HCPCS: 31500; 320; 36415; 36600; 71010; 74000; 80048; 80053; 80202; 81001; 82272; 82550; 82553; 82803; 82962; 83605; 83735; 83880; 84100; 84439; 84443; 84478; 84481; 84484; 85025; 85027; 85610; 85730; 87040; 87070; 87077; 87086; 87205; 93005; 93010; 94002; 94003; 94640; 94660; 99291; 99292; J0153; J0330; J0690; J1650; J1741; J1940; J2060; J2250; J2704; J3010; J3370; J3480; J3490; J7030; J7050; J7060; J7512; J7620; S0028